=== PATIENT | male | born 1985 | race Two or more races ===

== ENCOUNTER 2020-08-06 10:38 | Inpatient (IN) | payer MEDICAID ==
[~2020-08-06] VITALS: Ht 180.3 cm; Wt 115.7 kg
--- NOTE | 2020-08-06 10:40 | Emergency Room Report ---
History of Present Illness General Chief Complaint: Dyspnea/Respdistress Source: Patient, EMS Present Illness HPI 34-year-old male with no prior medical history presents to the emergency department with chief complaint of shortness of breath X 5 days, however worse over the past 2. According to EMS, there patient was hypoxic 89% upon arrival with severe increased work of breathing so he was placed on nasal cannula at 6 L. Patient recently returned from a trip to [place] last month. 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 Denies any recent antibiotic use or hospitalization. Also endorses myalgias, fatigue, chills, productive cough, shortness of breath. Denies chest pain, hemoptysis, history of blood clots, leg swelling, rash, photophobia, headache, focal weakness, abdominal pain, melena, hematochezia, dysuria or any other symptoms The patient's symptoms were gradual onset, severity was moderate, duration since 5 days. Quality: Generally weak Past medical history: Denies Past surgical history: Denies Smoking: Previous 2 pack/day smoker, quit 1.5 years ago Alcohol use: Previous heavy drinker. Quit 3 months ago (2 packs/day) Drug use: Denies Review of systems: CONST: ++ fevers ++ chills, No night sweats PULMONARY: ++ productive cough, ++ shortness of breath CARDIAC: No chest pain, ++ palpitations GI: No vomiting, No diarrhea , No melena_or_BRBPR : No dysuria, No hematuria, No discharge NEURO: No new_focal_weakness_or_numbness, No confusion, No vision changes 14 point Review of Systems is otherwise negative except per HPI Physical Exam: GENERAL: Awake_alert_ nontoxic, no acute distress Spo2 89% on RA -normal. Diaphoretic. EYES: Extraocular muscles are intact. Conjunctivae clear. Lids without swelling ENT: External nose and ear normal_in_appearance. Oropharynx clear. Head_atraumatic, dry_oral_mucosa NECK: No JVD. No meningismus. No thyromegaly. Supple. Trachea midline RESP: Increased respiratory effort. Symmetric rise. No stridor. Left lower lobe crackles. Subcostal retractions. Speaks in short clipped sentences. CARDIAC: Tachycardic rate and regular rhytm. No_significant pedal edema. ABDOMEN: Soft. Nondistended. Nontender_No_rebound_or_guarding. MSK: Normal muscle tone, without rigidity. Extremities without asymmetric deformity or swelling. SKIN: Warm and dry. No visible cyanosis or pallor. No petechiae NEUROLOGIC: Alert, oriented x3. Motor_and_sensation_grossly_intact. No truncal ataxia. Gait_normal Psych: Normal mood and affect, normal judgment and insight - COORDINATION OF CARE Case was discussed with: Patient , Patient's Physician Any labs and imaging that were ordered were interpreted as part of the medical decision making: Medical Decision Making/Plan: DDx: includes COVID-19 / coronavirus infection, URI, bronchitis, viral syndrome, postnasal drip, versus pneumonia, among others. Differential diagnosis includes sepsis / severe sepsis, UTI, pneumonia , viral syndrome, gastroenteritis, emergent abdominal infection, among others. Vitals show tachycardia, hypoxia. The patient arrived hypoxic in room air. He spiked a fever here as well. He was placed on nasal cannula 6L with decreased work of breathing and correction of hypoxia. He is noted to have subcostal retractions and speaks in short sentences. He has left lower lobe crackles. Chest x-ray shows multifocal pneumonia, suspicious for COVID-19 Sepsis bundle initiated on arrival. Blood cultures, lactate drawn. Covid swab collected. Lactate was not elevated , patient was NOT given 30 cc/kg IV fluids by bolus due to patient refusal due to concern for COVID. Empiric antibiotics were started. Patient received Decadron and azithromycin as well. Patient will be admitted to the hospital for further care and evaluation. I spoke with Dr. Mar (covering [facility]), and reviewed the patients presentation, workup, results, and treatment. They will admit the patient for further care and evaluation, and assume care of the patient at this time. - CRITICAL CARE STATEMENT - Critical care performed 45minutes) Time is exclusive of separately billable procedures. Time includes: direct patient care, patient reassessment, coordination of patient care, review of patient's medical records, medical consultation, family consultation regarding treatment decisions and documentation of patient care. 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 Rhythm: Sinus tachycardia Rate: 113 bpm QTc: 452 Morphology: No_significant_ST_elevations_or_depressions, No STEMI Impression: Sinus tachycardia, Q waves anterior leads. Normal axis Rhythm Strip Diag. Results Rhythm Strip Time: 10:58 EP Interpretation: yes Rate: 110 Rhythm: no PVC's, no ectopy Chest X-Ray Diagnostic Results Chest X-Ray Diagnostic Results : PA Scribe Text Chest X-Ray: Views: [ 1 ] view(s) Indication: Cough Findings: GGO multifocal pna , no PTX , no midline shift Impression: GGO multifocal pna The X-ray(s) were independently viewed and interpreted contemporaneously Electronically signed by Teagan eric DO Reevaluation Time: 11:11 Last Vital Signs Date Time Temp Pulse Resp B/P (MAP) Pulse Ox O2 Delivery O2 Flow Rate FiO2 08/06/20 10:34 97.5 119 24 148/99 (115) 99 Simple Mask 6.0 Status: improved Disposition: ADMITTED INPATIENT Admit Decision Time: 10:58 Condition: Stable Scripts No Active Prescriptions or Reported [employer] Teagan Dumas D.O. Aug 06, 2020 10:40
[2020-08-06] MEDS ORDERED: Acetaminophen 500mg (ES) tab ORAL ONE (10:45)
[2020-08-06] MEDS ORDERED: Azithromycin 500 MG in NS 275 ML IVPB ONE (10:45)
[2020-08-06] MEDS ORDERED: cefTRIAXone 1 GM in NS 55 ML IV ONE (10:45)
[2020-08-06 10:50] VITALS: BP 148/99
[2020-08-06 11:21] LABS: BASOPHILS % (AUTO) 0.6 % (0.0-2.0); EOSINOPHILS % (AUTO) 0.2 % (0.0-3.0); HEMATOCRIT 48.8 % (42.0-52.0); HEMOGLOBIN 17.1 G/DL (14.2-18.0); LYMPHOCYTES % (AUTO) 26.3 % (20.0-45.0); MEAN CORPUSCULAR VOLUME 86 FL (80-99); NEUTROPHILS % (AUTO) 66.9 % (45.0-75.0); PLATELET COUNT 208 K/UL (150-450); RED BLOOD COUNT 5.64 M/UL (4.70-6.10); RED CELL DISTRIBUTION WIDTH 12.3 % (11.6-14.8); WHITE BLOOD COUNT 5.1 K/UL (4.8-10.8)
[2020-08-06 11:25] LABS: INR 1.1 (0.9-1.1)
[2020-08-06 11:35] LABS: ANION GAP 12 mmol/L (5-15); BLOOD UREA NITROGEN 20 mg/dL (7-18); CALCIUM 8.3 MG/DL (8.5-10.1); CARBON DIOXIDE 25 MMOL/L (21-32); CHLORIDE 99 MMOL/L (98-107); CREATININE 0.8 MG/DL (0.55-1.30); POTASSIUM 3.7 MMOL/L (3.5-5.1); SODIUM 136 MMOL/L (136-145)
[2020-08-06 11:51] LABS: ALANINE AMINOTRANSFERASE 50 U/L (12-78); ALBUMIN 3.6 G/DL (3.4-5.0); ALBUMIN/GLOBULIN RATIO 0.8 (1.0-2.7); ALKALINE PHOSPHATASE 64 U/L (46-116); ASPARTATE AMINO TRANSFERASE 35 U/L (15-37); BILIRUBIN,TOTAL 1.2 MG/DL (0.2-1.0); CKMB < 0.5 NG/ML (0.0-3.6); CREATINE KINASE 216 U/L (26-308); FERRITIN 1174 NG/ML (8-388); LACTATE DEHYDROGENASE 515 U/L (81-234); PHOSPHORUS 3.8 MG/DL (2.5-4.9)
[2020-08-06 11:53] LABS: BILIRUBIN,DIRECT 0.4 MG/DL (0.0-0.3)
[2020-08-06] MEDS: Albuterol ud Inhalation HHN PRN ×2 (12:00→12:07)
[2020-08-06 14:20] VITALS: BP 148/99
--- NOTE | 2020-08-06 14:57 | Diagnostic Imaging Report ---
Indication: Cough Technique: One view of the chest Comparison: none Findings: Body habitus somewhat limits evaluation. Suboptimal inspiration results In crowding of bronchovascular markings. There are bilateral streaky and patchy infiltrates in a peribronchovascular distribution. The heart size is upper limits normal. Impression: Bilateral infiltrates, likely multifocal pneumonia, quite possibly viral
--- NOTE | 2020-08-06 15:45 | History and Physical ---
History of Present Illness General Date patient seen: Aug 06, 2020 Reason for Hospitalization: Dyspnea/Respdistress Present Illness HPI Kevin Morrison is a 34 yo previously healthy male who presents with 8 days of progressive SOB, cough, fevers, chills, decreased appetite. He is COVID-19 positive. He denies known sick contacts in his immediate family or outside the home. He recently traveled to [place] early June but was feeling well until last week. Also reports altered sensation of taste but denies anosmia, diarrhea, calf pain, blood clots. PMH: denies PSH: denies FH: denies SH: former smoker for over 10 years, quit 1.5 years ago. Denies current alcohol or recreational drug use NKDA Allergies: Coded Allergies: No Known Allergies (Unverified , 08/06/20) COVID-19 Screening Contact w/high risk pt: No Recent Travel to affected area: Yes Experienced COVID-19 symptoms?: Yes Coronavirus symptoms experienc: Fever (T>100.4F or >38C), Shortness of Breath Medication History No Active Prescriptions or Reported Meds Patient History History Provided By: Patient Healthcare decision maker Resuscitation status Advanced Directive on File Review of Systems Constitutional: Reports: chills, fever Eye: Denies: double vision, nose congestion ENT: Denies: ear discharge, throat pain Respiratory: Reports: cough, shortness of breath Cardiovascular: Reports: chest pain Gastrointestinal: Denies: abdominal pain, diarrhea, nausea, vomiting Genitourinary: Denies: dysuria, hematuria Musculoskeletal: Denies: joint pain, muscle pain Skin: Denies: rash, dryness Psychiatric: Denies: anxiety, hallucinations Neurological: Denies: headache, numbness Endocrine: Denies: flushing, intolerance to temperature Hematologic/Lymphatic: Denies: anemia, blood clots Physical Exam General Appearance: WD/WN, alert HEENT: normocephalic, atraumatic, mucous membranes moist, supple Neck: normal alignment, supple, normal inspection Respiratory/Chest: chest wall non-tender, respiratory distress - mild, crackles/rales Cardiovascular/Chest: normal peripheral pulses, normal rate, regular rhythm, no gallop/murmur Abdomen: non tender, soft, no organomegaly Extremities: normal range of motion, non-tender, no calf tenderness, no edema Skin Exam: normal pigmentation, warm/dry 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, alert, oriented x 3, responsive, normal mood/affect Musculoskeletal: normal muscle bulk, no effusion Last 24 Hour Vital Signs Date Time Temp Pulse Resp B/P (MAP) Pulse Ox O2 Delivery O2 Flow Rate FiO2 08/06/20 12:10 102 33 98 Nasal Cannula 3.0 32 102 26 98 08/06/20 11:57 102 26 98 Nasal Cannula 3.0 32 104 43 99 08/06/20 11:34 100.0 08/06/20 10:50 97.5 24 148/99 99 Simple Mask 6.0 08/06/20 10:50 119 24 Simple Mask 6.0 08/06/20 10:34 97.5 119 24 148/99 (115) 99 Simple Mask 6.0 Laboratory Tests Test 08/06/20 11:00 08/06/20 11:25 White Blood Count 5.1 K/UL (4.8-10.8) Red Blood Count 5.64 M/UL (4.70-6.10) Hemoglobin 17.1 G/DL (14.2-18.0) Hematocrit 48.8 % (42.0-52.0) Mean Corpuscular Volume 86 FL (80-99) Mean Corpuscular Hemoglobin 30.4 PG (27.0-31.0) Mean Corpuscular Hemoglobin Concent 35.2 G/DL (32.0-36.0) Red Cell Distribution Width 12.3 % (11.6-14.8) Platelet Count 208 K/UL (150-450) Mean Platelet Volume 7.5 FL (6.5-10.1) Neutrophils (%) (Auto) 66.9 % (45.0-75.0) Lymphocytes (%) (Auto) 26.3 % (20.0-45.0) Monocytes (%) (Auto) 6.0 % (1.0-10.0) Eosinophils (%) (Auto) 0.2 % (0.0-3.0) Basophils (%) (Auto) 0.6 % (0.0-2.0) Prothrombin Time 11.9 SEC (9.30-11.50) H Prothromb Time International Ratio 1.1 (0.9-1.1) Activated Partial Thromboplast Time 31 SEC (23-33) Sodium Level 136 MMOL/L (136-145) Potassium Level 3.7 MMOL/L (3.5-5.1) Chloride Level 99 MMOL/L (98-107) Carbon Dioxide Level 25 MMOL/L (21-32) Anion Gap 12 mmol/L (5-15) Blood Urea Nitrogen 20 mg/dL (7-18) H Creatinine 0.8 MG/DL (0.55-1.30) Estimat Glomerular Filtration Rate > 60 mL/min (>60) Glucose Level 124 MG/DL (74-106) H Lactic Acid Level 1.40 mmol/L (0.4-2.0) Calcium Level 8.3 MG/DL (8.5-10.1) L Phosphorus Level 3.8 MG/DL (2.5-4.9) Magnesium Level 2.1 MG/DL (1.8-2.4) Ferritin 1174 NG/ML (8-388) H Total Bilirubin 1.2 MG/DL (0.2-1.0) H Direct Bilirubin 0.4 MG/DL (0.0-0.3) H Aspartate Amino Transf (AST/SGOT) 35 U/L (15-37) Alanine Aminotransferase (ALT/SGPT) 50 U/L (12-78) Alkaline Phosphatase 64 U/L (46-116) Lactate Dehydrogenase 515 U/L (81-234) H Total Creatine Kinase 216 U/L (26-308) Creatine Kinase MB < 0.5 NG/ML (0.0-3.6) Creatine Kinase MB Relative Index 0.2 Troponin I 0.008 ng/mL (0.000-0.056) C-Reactive Protein, Quantitative 5.2 mg/dL (0.00-0.90) H Pro-B-Type Natriuretic Peptide < 5 pg/mL (0-125) Total Protein 8.3 G/DL (6.4-8.2) H Albumin 3.6 G/DL (3.4-5.0) Globulin 4.7 g/dL Albumin/Globulin Ratio 0.8 (1.0-2.7) L Lipase 509 U/L (73-393) H Arterial Blood pH 7.419 (7.350-7.450) Arterial Blood Partial Pressure CO2 33.3 mmHg (35.0-45.0) L Arterial Blood Partial Pressure O2 104.7 mmHg (75.0-100.0) H Arterial Blood HCO3 21.1 mmol/L (22.0-26.0) L Arterial Blood Oxygen Saturation 97.3 % (95-100) Arterial Blood Base Excess -2.4 (-2-2) L Andre Test Positive Microbiology Date/Time Source Procedure Growth Status 08/06/20 11:00 Nasopharynx SARS-CoV-2 RdRp Gene Assay - Final Complete Height (Feet): 5 Height (Inches): 11.00 Weight (Pounds): 255 Medications Current Medications Medications (Trade) Dose Ordered Sig/Porter Route PRN Reason Start Time Stop Time Status Last Admin Dose Admin Albuterol Sulfate (Proventil) 2.5 mg Q15MIN PRN HHN Shortness of Breath 08/06/20 10:45 08/06/20 12:00 Objective Narrative CXR 08/06/2020 Findings: Body habitus somewhat limits evaluation. Suboptimal inspiration results In crowding of bronchovascular markings. There are bilateral streaky and patchy infiltrates in a peribronchovascular distribution. The heart size is upper limits normal. Impression: Bilateral infiltrates, likely multifocal pneumonia, quite possibly viral Assessment/Plan Assessment/Plan: #COVID-19 Pneumonia #Acute hypoxemic respiratory failure - currently on oxygen via NC - elevated inflammatory markers, ferritin - dexamethasone, possibly remdesivir, per ID recs - antibiotics per ID recs - Consult pulmonology Dr. Salamanca - Consult ID Dr. Gann - Advance care planning note documented Fluids: IVF Diet: regular DVT ppx: heparin Code: FULL I spent 71 minutes on this patient's case, and 38 minutes were dedicated to counseling and/or care coordination. Discussed with ID and pulmonology consultants. Time of note may not reflect time of encounter Obinna Mar M.D. Aug 06, 2020 15:45
--- NOTE | 2020-08-06 16:13 | General Progress Note ---
Advance Care Planning Advance Care Planning Advance Care Planning [facility] An independent Hospitalist group, where every patient is our [facility] Internal Medicine Hospitalist Advanced Care Planning Note Please contact us at Date of Discussion: A [id number] discussion with the patient regarding the patient's advanced care planning took place during this hospitalization on the above date. The discussion included the explanation and discussion of advance directives and associated forms/documents, as well as the patient's current code status. We also discussed at length the patient's medical conditions (both acute and chroni c), general prognosis, treatment options, and goals of care. The following summarizes the discussion: Advance Care Planning/Goals of Care: - Will attempt to fill out an AD and/or POLST with the patient prior to discharge, if not already completed - Continue current evaluation and management of any acute and chronic medical issues - Will continue to support the patient/family - Will continue to discuss both short- and long-term goals of care DPOA-HC/Surrogate Decision Maker: Patient's is surrogate decision maker Code Status: Full Code Advanced Care Planning Forms/Documents Completed: Deferred until later encounter/visit A total of 17 minutes was spent on this discussion, including counseling, answering questions, and completing, if any, pertinent advanced care planning forms/documents. Time of note may not reflect time of encounter. Obinna Mar M.D. Aug 06, 2020 16:13
[2020-08-06 17:50] VITALS: BP 102/61
[2020-08-06] MEDS ORDERED: guaiFENesin 100mg/5ml Liq ud ORAL PRN (18:30)
[2020-08-06 20:00] VITALS: BP 115/73
[2020-08-06] MEDS: Enoxaparin 120 mg inj SUBQ SCH (20:22)
[2020-08-06] MEDS ORDERED: Heparin 5000 units/ml inj SUBQ SCH (21:00)
--- NOTE | 2020-08-06 21:00 | Consultation ---
DATE OF CONSULTATION: 08/06/2020 PULMONARY CONSULTATION CONSULTING PHYSICIAN: Rei aSlamanca MD. HISTORY OF PRESENT ILLNESS: This is a 34-year-old male with an unremarkable past history. He presented to the hospital with shortness of breath, lasting for the last five days. This has progressively gotten worse for the last two days. He denies alcohol or tobacco usage. He denies any recent COVID sick contacts. The patient was hypoxic in the ER and was also tachypneic. He was placed on nasal oxygen and currently he is saturating well on 6 L of oxygen. The patient does report a recent trip to another state in the last one month. The patient reports myalgias, fatigue, cough, shortness of breath. He denies dysgeusia or anosmia. PAST MEDICAL HISTORY: None. PAST SURGICAL HISTORY: None. ALLERGIES: None. SOCIAL HISTORY: He has been a smoker, but quit two years ago. He has also been a heavy alcohol user, but quit several months ago. REVIEW OF SYSTEMS: Admits to fevers, chills and sweats, cough, palpitations. Denies any headaches, hematemesis, melena, hematochezia, night sweats or weight loss. PHYSICAL EXAMINATION: GENERAL: Reveals a 34-year-old male. HEENT: Unremarkable. LUNGS: Clear breath sounds bilaterally. HEART: Normal heart sounds. ABDOMEN: Soft. EXTREMITIES: There is no edema. NEUROLOGIC: Nonfocal. VITAL SIGNS: Show blood pressure of 102/60, heart rate 85, respirations 20, O2 saturation 98% on 4 L of oxygen. LABORATORY DATA: Lab testing shows normal CBC and chemistries with an exception of glucose 124, ferritin 174, bilirubin 1.2, LDH 515, CRP 5.2. Troponin negative. Lipase 509. ABG is 7.41, pCO2 33, pO2 104. COVID testing is notable for rapid gene assay positivity. X-ray chest shows bilateral infiltrates suspicious for pneumonic process. IMPRESSION: 1. COVID-19 pneumonia. 2. Pancreatitis. 3. Hypoxemia. 4. Hyperglycemia. 5. Elevated inflammatory markers. DISCUSSION: Admit to the hospital. The patient will need oxygen. Agree with DVT prophylaxis. He is a candidate for remdesivir as well as Decadron. I will initiate Decadron, he has already received a single dose today in the ER. Agree with broad-spectrum antibiotics. Recommend ID consultation, IV fluids to be given. We will follow carefully. Rei Salamanca M.D. DR: SOLEDAD JOB#: [id number] CC: CANDELARIO
[2020-08-07] VITALS: BP 108/54
[2020-08-07 04:00] VITALS: BP 112/55
[2020-08-07 07:07] LABS: BASOPHILS % (AUTO) 1.3 % (0.0-2.0); EOSINOPHILS % (AUTO) 0.1 % (0.0-3.0); HEMATOCRIT 42.8 % (42.0-52.0); HEMOGLOBIN 15.1 G/DL (14.2-18.0); MEAN CORPUSCULAR VOLUME 88 FL (80-99); MONOCYTES % (AUTO) 10.4 % (1.0-10.0); NEUTROPHILS % (AUTO) 61.2 % (45.0-75.0); PLATELET COUNT 236 K/UL (150-450); RED BLOOD COUNT 4.88 M/UL (4.70-6.10); RED CELL DISTRIBUTION WIDTH 12.1 % (11.6-14.8); WHITE BLOOD COUNT 4.6 K/UL (4.8-10.8)
[2020-08-07 07:43] LABS: ANION GAP 9 mmol/L (5-15); BLOOD UREA NITROGEN 18 mg/dL (7-18); CALCIUM 8.3 MG/DL (8.5-10.1); CARBON DIOXIDE 27 MMOL/L (21-32); CHLORIDE 101 MMOL/L (98-107); CREATININE 0.7 MG/DL (0.55-1.30); POTASSIUM 4.1 MMOL/L (3.5-5.1); SODIUM 137 MMOL/L (136-145)
[2020-08-07 07:49] LABS: INR 1.1 (0.9-1.1)
[2020-08-07 08:00] VITALS: BP 115/62
[2020-08-07] MEDS: dexAMETHasone 10mg/ml Inj IV SCH (08:36)
[2020-08-07] MEDS: Enoxaparin 120 mg inj SUBQ SCH ×2 (08:37→21:00)
--- NOTE | 2020-08-07 11:33 | Pulmonology Progress Note ---
Subjective ROS Limited/Unobtainable: No Interval Events: NC -> Venturi mask -> now on NRB Constitutional: Reports: no symptoms HEENT: Repors: no symptoms Respiratory: Reports: dry cough, shortness of breath Cardiovascular: Reports: no symptoms Gastrointestinal/Abdominal: Reports: no symptoms Allergies: Coded Allergies: No Known Allergies (Unverified , 08/06/20) Objective Last 24 Hour Vital Signs Date Time Temp Pulse Resp B/P (MAP) Pulse Ox O2 Delivery O2 Flow Rate FiO2 08/07/20 08:00 75 08/07/20 08:00 97.6 71 19 115/62 (79) 98 08/07/20 04:00 68 08/07/20 04:00 97.2 77 24 112/55 (74) 96 08/07/20 00:00 96.3 74 22 108/54 (72) 90 08/07/20 00:00 96 Non-Rebreather 15.0 100 08/06/20 21:00 Nasal Cannula 5.0 08/06/20 20:00 97.9 86 22 115/73 (87) 91 08/06/20 20:00 90 08/06/20 17:50 98.7 85 21 102/61 (75) 90 08/06/20 17:25 Nasal Cannula 5.0 08/06/20 17:15 99.8 98 24 148/99 98 Nasal Cannula 4.0 32 08/06/20 14:20 99.8 98 24 148/99 98 Nasal Cannula 4.0 32 08/06/20 12:10 102 33 98 Nasal Cannula 3.0 32 102 26 98 08/06/20 11:57 102 26 98 Nasal Cannula 3.0 32 104 43 99 08/06/20 11:34 100.0 Intake and Output 08/06/20 08/07/20 19:00 07:00 Intake Total 2058.75 ml 825 ml Output Total 550 ml Balance 2058.75 ml 275 ml Intake IV Total 2058.75 ml 825 ml Output Urine Total 550 ml # Voids 1 Objective 08/07 now on NRB 15L saturating at 93-94% General Appearance: WD/WN, no acute distress HEENT: normocephalic, atraumatic Respiratory: chest wall non-tender, crackles/rales Cardiovascular: normal rate, regular rhythm Abdomen: soft, non tender Microbiology Date/Time Source Procedure Growth Status 08/06/20 11:00 Nasopharynx SARS-CoV-2 RdRp Gene Assay - Final Complete Laboratory Tests 08/07/20 02:34: Arterial Blood pH 7.428, Arterial Blood Partial Pressure CO2 39.6, Arterial Blood Partial Pressure O2 94.8, Arterial Blood HCO3 25.6, Arterial Blood Oxygen Saturation 96.9, Arterial Blood Base Excess 1.3, Andre Test Positive 08/07/20 05:40: White Blood Count 4.6L, Red Blood Count 4.88, Hemoglobin 15.1, Hematocrit 42.8, Mean Corpuscular Volume 88, Mean Corpuscular Hemoglobin 30.9, Mean Corpuscular Hemoglobin Concent 35.2, Red Cell Distribution Width 12.1, Platelet Count 236, Mean Platelet Volume 7.8, Neutrophils (%) (Auto) 61.2, Lymphocytes (%) (Auto) 27.0, Monocytes (%) (Auto) 10.4H, Eosinophils (%) (Auto) 0.1, Basophils (%) (Auto) 1.3, Prothrombin Time 11.7H, Prothromb Time International Ratio 1.1, Activated Partial Thromboplast Time 30, Fibrinogen 539H, D-Dimer 0.68H, Sodium Level 137, Potassium Level 4.1, Chloride Level 101, Carbon Dioxide Level 27, Anion Gap 9, Blood Urea Nitrogen 18, Creatinine 0.7, Estimat Glomerular Filtration Rate > 60, Glucose Level 119H, Calcium Level 8.3L Current Medications Medications (Trade) Dose Ordered Sig/Porter Route PRN Reason Start Time Stop Time Status Last Admin Dose Admin Acetaminophen (Tylenol) 325 mg Q4H PRN ORAL FEVER 08/06/20 18:15 09/05/20 18:14 Albuterol Sulfate (Proventil) 2.5 mg Q15MIN PRN HHN Shortness of Breath 08/06/20 10:45 08/06/20 12:00 Dexamethasone Sodium Phosphate (Decadron 10mg/ ml Inj) 6 mg DAILY IV 08/07/20 09:00 08/16/20 09:01 08/07/20 08:36 Dextrose (Dextrose 50%) 25 ml Q30M PRN IV Hypoglycemia 08/06/20 16:45 11/04/20 16:44 Dextrose (Dextrose 50%) 50 ml Q30M PRN IV Hypoglycemia 08/06/20 16:45 11/04/20 16:44 Enoxaparin Sodium (Lovenox) 120 mg EVERY 12 HOURS SUBQ 08/06/20 21:00 11/04/20 20:59 08/07/20 08:37 Guaifenesin (Robitussin) 200 mg Q4H PRN ORAL For Cough 08/06/20 18:30 11/04/20 18:29 Pantoprazole (Protonix) 40 mg DAILY ORAL 08/07/20 09:00 09/06/20 08:59 08/07/20 08:36 Sodium Chloride 1,000 ml @ 75 mls/hr [id number] IV 08/06/20 17:45 09/05/20 17:44 08/07/20 06:17 Assessment/Plan Assessment/Plan 1. COVID-19 pneumonia. - now on 15L NRB saturating at 93-94% - on remdesivir and decadron - on broad-spectrum Abx 2. Pancreatitis. - trend lipase 3. Hypoxemia. - Cont supplemental oxygen - keep saO2 >92% 4. Hyperglycemia., likely secondary to steroids - monitor 5. Elevated inflammatory markers. - DVT ppx - on lovenox We will follow carefully. The care for this patient was discussed with my supervising physician Time spent for this case was approximately 31 minutes Austyn Calixto Aug 07, 2020 11:33
[2020-08-07 12:00] VITALS: BP 125/85
--- NOTE | 2020-08-07 13:19 | Cardiac Electrophysiology PN ---
Subjective Subjective [id number] Objective Last 24 Hour Vital Signs Date Time Temp Pulse Resp B/P (MAP) Pulse Ox O2 Delivery O2 Flow Rate FiO2 08/07/20 13:08 96 Non-Rebreather 15.0 100 08/07/20 08:00 75 08/07/20 08:00 97.6 71 19 115/62 (79) 98 08/07/20 04:00 68 08/07/20 04:00 97.2 77 24 112/55 (74) 96 08/07/20 00:00 96.3 74 22 108/54 (72) 90 08/07/20 00:00 96 Non-Rebreather 15.0 100 08/06/20 21:00 Nasal Cannula 5.0 08/06/20 20:00 97.9 86 22 115/73 (87) 91 08/06/20 20:00 90 08/06/20 17:50 98.7 85 21 102/61 (75) 90 08/06/20 17:25 Nasal Cannula 5.0 08/06/20 17:15 99.8 98 24 148/99 98 Nasal Cannula 4.0 32 08/06/20 14:20 99.8 98 24 148/99 98 Nasal Cannula 4.0 32 Intake and Output 08/06/20 08/07/20 19:00 07:00 Intake Total 2058.75 ml 825 ml Output Total 550 ml Balance 2058.75 ml 275 ml Intake IV Total 2058.75 ml 825 ml Output Urine Total 550 ml # Voids 1 Laboratory Tests Test 08/07/20 02:34 08/07/20 05:40 Arterial Blood pH 7.428 (7.350-7.450) Arterial Blood Partial Pressure CO2 39.6 mmHg (35.0-45.0) Arterial Blood Partial Pressure O2 94.8 mmHg (75.0-100.0) Arterial Blood HCO3 25.6 mmol/L (22.0-26.0) Arterial Blood Oxygen Saturation 96.9 % (95-100) Arterial Blood Base Excess 1.3 (-2-2) Andre Test Positive White Blood Count 4.6 K/UL (4.8-10.8) L Red Blood Count 4.88 M/UL (4.70-6.10) Hemoglobin 15.1 G/DL (14.2-18.0) Hematocrit 42.8 % (42.0-52.0) Mean Corpuscular Volume 88 FL (80-99) Mean Corpuscular Hemoglobin 30.9 PG (27.0-31.0) Mean Corpuscular Hemoglobin Concent 35.2 G/DL (32.0-36.0) Red Cell Distribution Width 12.1 % (11.6-14.8) Platelet Count 236 K/UL (150-450) Mean Platelet Volume 7.8 FL (6.5-10.1) Neutrophils (%) (Auto) 61.2 % (45.0-75.0) Lymphocytes (%) (Auto) 27.0 % (20.0-45.0) Monocytes (%) (Auto) 10.4 % (1.0-10.0) H Eosinophils (%) (Auto) 0.1 % (0.0-3.0) Basophils (%) (Auto) 1.3 % (0.0-2.0) Prothrombin Time 11.7 SEC (9.30-11.50) H Prothromb Time International Ratio 1.1 (0.9-1.1) Activated Partial Thromboplast Time 30 SEC (23-33) Fibrinogen 539 mg/dL (200-400) H D-Dimer 0.68 mg/L FEU (0.00-0.49) H Sodium Level 137 MMOL/L (136-145) Potassium Level 4.1 MMOL/L (3.5-5.1) Chloride Level 101 MMOL/L (98-107) Carbon Dioxide Level 27 MMOL/L (21-32) Anion Gap 9 mmol/L (5-15) Blood Urea Nitrogen 18 mg/dL (7-18) Creatinine 0.7 MG/DL (0.55-1.30) Estimat Glomerular Filtration Rate > 60 mL/min (>60) Glucose Level 119 MG/DL (74-106) H Calcium Level 8.3 MG/DL (8.5-10.1) L Microbiology Date/Time Source Procedure Growth Status 08/06/20 11:00 Nasopharynx SARS-CoV-2 RdRp Gene Assay - Final Complete Jacques Hardwick MD Aug 07, 2020 13:19
[2020-08-07 16:00] VITALS: BP 124/58
--- NOTE | 2020-08-07 16:01 | Consultation ---
DATE OF CONSULTATION: 08/07/2020 CARDIOLOGY CONSULTATION CONSULTING PHYSICIAN: Jacques Hardwick MD REFERRING PHYSICIAN: Maria G Slade MD REASON FOR CONSULTATION: Bradycardia with 1.5 second pause in a COVID patient. HISTORY OF PRESENT ILLNESS: Patient is a 34-year-old, previously healthy gentleman who presented to the emergency room with 8 days of progressive shortness of breath and cough and fever and chills and decreased appetite. He turned out to be COVID positive. Patient denies any contact with an immediate family. He recently traveled to [place] in June; however feeling well until last week. Patient reports altered sensation of taste, but denies anosmia or diarrhea or calf pain or blood clots. Patient had 1.5 second pause on telemetry and a Cardiology consultation was obtained for further evaluation. At the time of my evaluation, patient is on 15 L non-rebreather face mask and is alert . REVIEW OF SYSTEMS: Negative other than what was mentioned in the history of present illness. PAST MEDICAL HISTORY: As mentioned above. FAMILY HISTORY: Noncontributory. SOCIAL HISTORY: He is a former smoker about 10 years ago, quit a year half ago. Denies drinking alcohol or using recreational drugs. PHYSICAL EXAMINATION: VITAL SIGNS: Show blood pressure of 115/62, pulse 71, respirations 18, temperature 97.6. HEAD AND NECK: Showed no JVD. LUNGS: Coarse rhonchi. CARDIOVASCULAR: Shows regular S1 and S2 with no gallop. ABDOMEN: Soft. EXTREMITIES: No pitting edema. LABORATORY DATA: White count 4.7, hematocrit 15.1, hematocrit 42.8, platelet count 236,000. Sodium 137, potassium 4.1, BUN of 18, creatinine of 0.7. First troponin is negative. ASSESSMENT AND PLAN: 1. Pause of 1.5 second. Watch the patient on telemetry. We will check thyroid function tests and we will get an echocardiogram to evaluate for ejection fraction and wall motion abnormality. 2. COVID pneumonia with elevated inflammatory markers, on non-rebreather face mask 15 L. 3. Elevated ferritin of more than 1000, LDH of more than 500. 4. Pancreatitis. Lipase of more than 500. Thank you very much for allowing me to participate in the care of this patient. Please do not hesitate to contact me for any questions regarding my evaluation. Jacques Hardwick M.D. DR: SHIRLENE JOB#: [id number] CC:
--- NOTE | 2020-08-07 16:12 | General Progress Note ---
Subjective Date patient seen: Aug 07, 2020 ROS Limited/Unobtainable: No Allergies: Coded Allergies: No Known Allergies (Unverified , 08/06/20) Subjective No acute events overnight. Patient now on nonrebreather oxygen. Noted to have 1.5 sec sinus pause on telemetry. Reports improving chest pain, generally feeling stable. Constitutional: Denies: fever, chills Eye: Denies: double vision, nose congestion ENT: Denies: ear discharge, throat pain Respiratory: Reports: shortness of breath Cardiovascular: Reports: improving chest pain Gastrointestinal: Denies: abdominal pain, diarrhea, nausea, vomiting Genitourinary: Denies: dysuria, hematuria Musculoskeletal: Denies: joint pain, muscle pain Skin: Denies: rash, dryness Psychiatric: Denies: anxiety, hallucinations Neurological: Denies: headache, numbness Endocrine: Denies: flushing, intolerance to temperature Hematologic/Lymphatic: Denies: anemia, blood clots Objective Last 24 Hour Vital Signs Date Time Temp Pulse Resp B/P (MAP) Pulse Ox O2 Delivery O2 Flow Rate FiO2 08/07/20 13:08 96 Non-Rebreather 15.0 100 08/07/20 12:00 96.7 107 21 125/85 (98) 98 08/07/20 12:00 78 08/07/20 09:00 Non-Rebreather 15.0 08/07/20 08:00 75 08/07/20 08:00 97.6 71 19 115/62 (79) 98 08/07/20 04:00 68 08/07/20 04:00 97.2 77 24 112/55 (74) 96 08/07/20 00:00 96.3 74 22 108/54 (72) 90 08/07/20 00:00 96 Non-Rebreather 15.0 100 08/06/20 21:00 Nasal Cannula 5.0 08/06/20 20:00 97.9 86 22 115/73 (87) 91 08/06/20 20:00 90 08/06/20 17:50 98.7 85 21 102/61 (75) 90 08/06/20 17:25 Nasal Cannula 5.0 08/06/20 17:15 99.8 98 24 148/99 98 Nasal Cannula 4.0 32 Intake and Output 08/06/20 08/07/20 19:00 07:00 Intake Total 2058.75 ml 825 ml Output Total 550 ml Balance 2058.75 ml 275 ml Intake IV Total 2058.75 ml 825 ml Output Urine Total 550 ml # Voids 1 Laboratory Tests 08/07/20 02:34: Arterial Blood pH 7.428, Arterial Blood Partial Pressure CO2 39.6, Arterial Blood Partial Pressure O2 94.8, Arterial Blood HCO3 25.6, Arterial Blood Oxygen Saturation 96.9, Arterial Blood Base Excess 1.3, Andre Test Positive 08/07/20 05:40: White Blood Count 4.6L, Red Blood Count 4.88, Hemoglobin 15.1, Hematocrit 42.8, Mean Corpuscular Volume 88, Mean Corpuscular Hemoglobin 30.9, Mean Corpuscular Hemoglobin Concent 35.2, Red Cell Distribution Width 12.1, Platelet Count 236, Mean Platelet Volume 7.8, Neutrophils (%) (Auto) 61.2, Lymphocytes (%) (Auto) 27.0, Monocytes (%) (Auto) 10.4H, Eosinophils (%) (Auto) 0.1, Basophils (%) (Auto) 1.3, Prothrombin Time 11.7H, Prothromb Time International Ratio 1.1, Activated Partial Thromboplast Time 30, Fibrinogen 539H, D-Dimer 0.68H, Sodium Level 137, Potassium Level 4.1, Chloride Level 101, Carbon Dioxide Level 27, Anion Gap 9, Blood Urea Nitrogen 18, Creatinine 0.7, Estimat Glomerular Filtration Rate > 60, Glucose Level 119H, Calcium Level 8.3L Height (Feet): 5 Height (Inches): 11.00 Weight (Pounds): 255 Objective General Appearance: WD/WN, alert, on nonrebreather oxygen mask HEENT: normocephalic, atraumatic, mucous membranes moist, supple Neck: normal alignment, supple, normal inspection Respiratory/Chest: chest wall non-tender, respiratory distress - mild, crackles/rales Cardiovascular/Chest: normal peripheral pulses, normal rate, regular rhythm, no gallop/murmur Abdomen: non tender, soft, no organomegaly Extremities: normal range of motion, non-tender, no calf tenderness, no edema Skin Exam: normal pigmentation, warm/dry 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 Salamanca - Consult ID Dr. Gann - Advance care planning note documented #Sinus pause #Bradycardia Asymptomatic - Check TTE - Check TSH - Consult cardiology Dr. Hardwick Fluids: IVF Diet: regular DVT ppx: heparin Code: FULL I spent 37 minutes on this patient's case, and 23 minutes were dedicated to counseling and/or care coordination. Discussed with cardiology and pulmonology consultants. Time of note may not reflect time of encounter Obinna Mar M.D. Aug 07, 2020 16:12
--- NOTE | 2020-08-07 17:16 | Infectious Diseases Prog Note ---
Assessment/Plan Assessment/Plan Full consult dictated: A) 1) covid-19 with pna, hypoxia, ? cap, fevers 2) pmh noted 3) allergies - nkda P) 1) dexamethasone, remdesivir, azithromycin and ceftriaxone 2) check labs, chest x-ray 3) monitor for hypoxia 4) will f/u 5) thanks Subjective Allergies: Coded Allergies: No Known Allergies (Unverified , 08/06/20) Objective Last 24 Hour Vital Signs Date Time Temp Pulse Resp B/P (MAP) Pulse Ox O2 Delivery O2 Flow Rate FiO2 08/07/20 16:00 65 08/07/20 16:00 96.8 69 21 124/58 (80) 99 08/07/20 13:08 96 Non-Rebreather 15.0 100 08/07/20 12:00 96.7 107 21 125/85 (98) 98 08/07/20 12:00 78 08/07/20 09:00 Non-Rebreather 15.0 08/07/20 08:00 75 08/07/20 08:00 97.6 71 19 115/62 (79) 98 08/07/20 04:00 68 08/07/20 04:00 97.2 77 24 112/55 (74) 96 08/07/20 00:00 96.3 74 22 108/54 (72) 90 08/07/20 00:00 96 Non-Rebreather 15.0 100 08/06/20 21:00 Nasal Cannula 5.0 08/06/20 20:00 97.9 86 22 115/73 (87) 91 08/06/20 20:00 90 08/06/20 17:50 98.7 85 21 102/61 (75) 90 08/06/20 17:25 Nasal Cannula 5.0 08/06/20 17:15 99.8 98 24 148/99 98 Nasal Cannula 4.0 32 Height (Feet): 5 Height (Inches): 11.00 Weight (Pounds): 255 Microbiology Date/Time Source Procedure Growth Status 08/06/20 11:00 Nasopharynx SARS-CoV-2 RdRp Gene Assay - Final Complete Laboratory Tests Test 08/07/20 02:34 08/07/20 05:40 Arterial Blood pH 7.428 (7.350-7.450) Arterial Blood Partial Pressure CO2 39.6 mmHg (35.0-45.0) Arterial Blood Partial Pressure O2 94.8 mmHg (75.0-100.0) Arterial Blood HCO3 25.6 mmol/L (22.0-26.0) Arterial Blood Oxygen Saturation 96.9 % (95-100) Arterial Blood Base Excess 1.3 (-2-2) Andre Test Positive White Blood Count 4.6 K/UL (4.8-10.8) L Red Blood Count 4.88 M/UL (4.70-6.10) Hemoglobin 15.1 G/DL (14.2-18.0) Hematocrit 42.8 % (42.0-52.0) Mean Corpuscular Volume 88 FL (80-99) Mean Corpuscular Hemoglobin 30.9 PG (27.0-31.0) Mean Corpuscular Hemoglobin Concent 35.2 G/DL (32.0-36.0) Red Cell Distribution Width 12.1 % (11.6-14.8) Platelet Count 236 K/UL (150-450) Mean Platelet Volume 7.8 FL (6.5-10.1) Neutrophils (%) (Auto) 61.2 % (45.0-75.0) Lymphocytes (%) (Auto) 27.0 % (20.0-45.0) Monocytes (%) (Auto) 10.4 % (1.0-10.0) H Eosinophils (%) (Auto) 0.1 % (0.0-3.0) Basophils (%) (Auto) 1.3 % (0.0-2.0) Prothrombin Time 11.7 SEC (9.30-11.50) H Prothromb Time International Ratio 1.1 (0.9-1.1) Activated Partial Thromboplast Time 30 SEC (23-33) Fibrinogen 539 mg/dL (200-400) H D-Dimer 0.68 mg/L FEU (0.00-0.49) H Sodium Level 137 MMOL/L (136-145) Potassium Level 4.1 MMOL/L (3.5-5.1) Chloride Level 101 MMOL/L (98-107) Carbon Dioxide Level 27 MMOL/L (21-32) Anion Gap 9 mmol/L (5-15) Blood Urea Nitrogen 18 mg/dL (7-18) Creatinine 0.7 MG/DL (0.55-1.30) Estimat Glomerular Filtration Rate > 60 mL/min (>60) Glucose Level 119 MG/DL (74-106) H Calcium Level 8.3 MG/DL (8.5-10.1) L Current Medications Medications (Trade) Dose Ordered Sig/Porter Route PRN Reason Start Time Stop Time Status Last Admin Dose Admin Acetaminophen (Tylenol) 325 mg Q4H PRN ORAL FEVER 08/06/20 18:15 09/05/20 18:14 Albuterol Sulfate (Proventil) 2.5 mg Q15MIN PRN HHN Shortness of Breath 08/06/20 10:45 08/06/20 12:00 Dexamethasone Sodium Phosphate (Decadron 10mg/ ml Inj) 6 mg DAILY IV 08/07/20 09:00 08/16/20 09:01 08/07/20 08:36 Dextrose (Dextrose 50%) 25 ml Q30M PRN IV Hypoglycemia 08/06/20 16:45 11/04/20 16:44 Dextrose (Dextrose 50%) 50 ml Q30M PRN IV Hypoglycemia 08/06/20 16:45 11/04/20 16:44 Enoxaparin Sodium (Lovenox) 120 mg EVERY 12 HOURS SUBQ 08/06/20 21:00 11/04/20 20:59 08/07/20 08:37 Guaifenesin (Robitussin) 200 mg Q4H PRN ORAL For Cough 08/06/20 18:30 11/04/20 18:29 Pantoprazole (Protonix) 40 mg DAILY ORAL 08/07/20 09:00 09/06/20 08:59 08/07/20 08:36 Remdesivir 100 mg/ Sodium Chloride 250 ml @ 250 mls/hr Q24H IV 08/08/20 21:00 08/11/20 21:59 Remdesivir 200 mg/ Sodium Chloride 250 ml @ 125 mls/hr ONCE IV 08/07/20 21:00 08/07/20 22:59 Sodium Chloride 1,000 ml @ 75 mls/hr [id number] IV 08/06/20 17:45 09/05/20 17:44 08/07/20 06:17 Anam Arcos MD Aug 07, 2020 17:16
[2020-08-07] MEDS: cefTRIAXone 1 GM in D5W 55 ML IVPB SCH (17:35)
--- NOTE | 2020-08-07 18:45 | Consultation ---
DATE OF CONSULTATION: 08/07/2020 INFECTIOUS DISEASE CONSULTATION CONSULTING PHYSICIAN: Anam Arcos MD ATTENDING PHYSICIAN: Maria G Slade MD REFERRING PHYSICIAN: Obinna Mar MD REASON FOR CONSULTATION: COVID-19 infection and pneumonia, possible community-acquired pneumonia, fevers. CHIEF COMPLAINT: Patient's chief complaint coming to the hospital is respiratory insufficiency and pneumonia. HISTORY OF PRESENT ILLNESS: This is a very pleasant 34-year-old male who comes in to [facility] with hypoxia. Patient had COVID testing and was positive. Nasopharyngeal testing was positive. Patient's chest x-ray shows a multifocal pneumonia. Infectious Disease consultation is requested. I saw the patient and placed the patient on azithromycin and Rocephin for community-acquired pneumonia and remdesivir for COVID infection. He is already on Decadron. Case was communicated and discussed with primary care team. Patient is on non-rebreather and is in COVID isolation. REVIEW OF SYSTEMS: CONSTITUTIONAL: Main issue is the breathing issue, shortness of breath. He came in with fevers and chills. CARDIAC: No chest pain. GASTROINTESTINAL: No nausea, vomiting, or diarrhea. GENITOURINARY: No urinary symptoms. PULMONARY: Shortness of breath and cough. PAST MEDICAL HISTORY: Otherwise negative. SOCIAL HISTORY: Negative. FAMILY HISTORY: Noncontributory. MEDICATIONS: Upon reviewing the MAR, patient is on following medications. He is on does remdesivir, dexamethasone 6 mg daily, pantoprazole, enoxaparin, Rocephin, azithromycin, acetaminophen. PRN medications, Rocephin and azithromycin. PHYSICAL EXAMINATION: VITAL SIGNS: Temperature 96.8, pulse rate 69, respiratory rate 21, blood pressure 124/58, saturation 99% on non-rebreather. GENERAL: Alert, oriented, on non-rebreather. HEAD AND NECK: Normocephalic. No icterus or thrush. HEART: Regular. No gallop or murmur. ABDOMEN: Soft. Positive bowel sounds. Nontender. LUNGS: Bilateral rhonchi and rales. SKIN: No rash. MUSCULOSKELETAL: No effusions. Legs are without cellulitis. PERIPHERAL VASCULAR: No gangrene or cyanosis. LINE SITES: No central line. GENITOURINARY: No Martinez. NEUROLOGIC: Intact. Alert, oriented x3. LABORATORY DATA: Creatinine 0.7. White count 4.6, hemoglobin 15.1. COVID molecular testing is positive. Chest x-ray, bilateral infiltrates. ASSESSMENT AND PLAN: 1. Patient with COVID-19 infection with secondary pneumonia and hypoxia. Patient could have community-acquired pneumonia. Patient has fevers. His T-max when he came in was 100.0. At this time, we will continue dexamethasone and start remdesivir. Patient will need 7 to 10-day treatment course of dexamethasone, 5-day treatment course of remdesivir. With regards to possible community-acquired pneumonia, we will continue azithromycin and Rocephin. Check followup laboratories and chest x-ray as indicated. Monitor for hypoxia. Continue COVID isolation. 2. No other significant past medical history. 3. No known drug allergies. 4. Social history is negative. 5. Family history is noncontributory. 6. MAR is noted. 7. Case is discussed with RN. 8. Case is communicated with care primary care team. Anam Arcos M.D. DR: LESLY JOB#: [id number] CC:
[2020-08-07 20:00] VITALS: BP 114/66
[2020-08-07] MEDS ORDERED: Loading Dose:Remdesivir 200mg/NS 210ml IV SCH ×2 (21:00)
[2020-08-08] VITALS: BP 110/70
[2020-08-08 04:00] VITALS: BP 124/79
[2020-08-08 07:39] LABS: ALANINE AMINOTRANSFERASE 40 U/L (12-78); ALBUMIN 2.9 G/DL (3.4-5.0); ALBUMIN/GLOBULIN RATIO 0.7 (1.0-2.7); ALKALINE PHOSPHATASE 48 U/L (46-116); ANION GAP 6 mmol/L (5-15); ASPARTATE AMINO TRANSFERASE 29 U/L (15-37); BILIRUBIN,TOTAL 0.6 MG/DL (0.2-1.0); BLOOD UREA NITROGEN 16 mg/dL (7-18); CARBON DIOXIDE 29 MMOL/L (21-32); CHLORIDE 104 MMOL/L (98-107); CREATININE 0.7 MG/DL (0.55-1.30); POTASSIUM 3.8 MMOL/L (3.5-5.1); SODIUM 139 MMOL/L (136-145)
[2020-08-08 08:00] VITALS: BP 126/70
[2020-08-08 08:27] LABS: BASOPHILS % (AUTO) 0.7 % (0.0-2.0); EOSINOPHILS % (AUTO) 0.2 % (0.0-3.0); HEMATOCRIT 37.1 % (42.0-52.0); HEMOGLOBIN 13.6 G/DL (14.2-18.0); LYMPHOCYTES % (AUTO) 23.7 % (20.0-45.0); MEAN CORPUSCULAR VOLUME 87 FL (80-99); MONOCYTES % (AUTO) 5.9 % (1.0-10.0); NEUTROPHILS % (AUTO) 69.5 % (45.0-75.0); PLATELET COUNT 262 K/UL (150-450); RED BLOOD COUNT 4.29 M/UL (4.70-6.10); RED CELL DISTRIBUTION WIDTH 12.6 % (11.6-14.8); WHITE BLOOD COUNT 7.4 K/UL (4.8-10.8)
[2020-08-08] MEDS: Enoxaparin 120 mg inj SUBQ SCH ×2 (08:30→21:05)
[2020-08-08] MEDS: dexAMETHasone 10mg/ml Inj IV SCH (08:30)
[2020-08-08] MEDS: Azithromycin 250mg tab ORAL SCH (08:31)
--- NOTE | 2020-08-08 10:43 | Diagnostic Imaging Report ---
Indication: Reason For Exam: [id number] Technique: One view of the chest Comparison: 08/06/2020 Findings: Interim worsening of bilateral infiltrates, with more air space consolidation, particularly in the left mid and upper lung. Impression: Worsening bilateral infiltrates, over 2 days
--- NOTE | 2020-08-08 11:54 | Pulmonology Progress Note ---
Subjective ROS Limited/Unobtainable: No Interval Events: NC -> Venturi mask -> now on NRB Constitutional: Reports: no symptoms HEENT: Repors: no symptoms Respiratory: Reports: dry cough, shortness of breath Cardiovascular: Reports: no symptoms Gastrointestinal/Abdominal: Reports: no symptoms Allergies: Coded Allergies: No Known Allergies (Unverified , 08/06/20) Objective Last 24 Hour Vital Signs Date Time Temp Pulse Resp B/P (MAP) Pulse Ox O2 Delivery O2 Flow Rate FiO2 08/08/20 09:26 99.1 08/08/20 09:00 Non-Rebreather 15.0 08/08/20 08:00 100.6 70 19 126/70 (88) 99 08/08/20 08:00 61 08/08/20 04:00 98.0 45 18 124/79 (94) 99 08/08/20 04:00 63 08/08/20 00:00 97.8 62 18 110/70 (83) 98 08/08/20 00:00 64 08/07/20 21:00 Non-Rebreather 15.0 08/07/20 20:02 99 Non-Rebreather 15.0 100 08/07/20 20:00 97.9 64 17 114/66 (82) 99 08/07/20 16:00 65 08/07/20 16:00 96.8 69 21 124/58 (80) 99 08/07/20 13:08 96 Non-Rebreather 15.0 100 08/07/20 12:00 96.7 107 21 125/85 (98) 98 08/07/20 12:00 78 Intake and Output 08/07/20 08/08/20 19:00 07:00 Intake Total 1000 ml 360 ml Output Total 1200 ml Balance -200 ml 360 ml Intake Oral 120 ml 360 ml IV Total 880 ml Output Urine Total 1200 ml # Voids 3 1 # Bowel Movements 1 1 Objective 08/08 pt remains to be on NRB 15L 08/07 now on NRB 15L saturating at 93-94% General Appearance: WD/WN, no acute distress HEENT: normocephalic, atraumatic Respiratory: chest wall non-tender, crackles/rales Cardiovascular: normal rate, regular rhythm Abdomen: soft, non tender Microbiology Date/Time Source Procedure Growth Status 08/06/20 11:01 Blood Blood Culture - Preliminary NO GROWTH AFTER 24 HOURS Resulted 08/06/20 11:00 Nasopharynx SARS-CoV-2 RdRp Gene Assay - Final Complete 08/06/20 10:55 Blood Blood Culture - Preliminary NO GROWTH AFTER 24 HOURS Resulted Laboratory Tests 08/08/20 05:47: White Blood Count 7.4#, Red Blood Count 4.29L, Hemoglobin 13.6L, Hematocrit 37.1L, Mean Corpuscular Volume 87, Mean Corpuscular Hemoglobin 31.7H, Mean Corpuscular Hemoglobin Concent 36.6H, Red Cell Distribution Width 12.6, Platelet Count 262, Mean Platelet Volume 6.8, Neutrophils (%) (Auto) 69.5, Lymphocytes (%) (Auto) 23.7, Monocytes (%) (Auto) 5.9, Eosinophils (%) (Auto) 0.2, Basophils (%) (Auto) 0.7, Sodium Level 139, Potassium Level 3.8, Chloride Level 104, Carbon Dioxide Level 29, Anion Gap 6, Blood Urea Nitrogen 16, Creatinine 0.7, Estimat Glomerular Filtration Rate > 60, Glucose Level 118H, Calcium Level 8.0L, Total Bilirubin 0.6, Direct Bilirubin 0.2, Aspartate Amino Transf (AST/SGOT) 29, Alanine Aminotransferase (ALT/SGPT) 40, Alkaline Phosphatase 48, Pro-B-Type Natriuretic Peptide 154H, Total Protein 6.8, Albumin 2.9L, Globulin 3.9, Albumin/Globulin Ratio 0.7L, Thyroid Stimulating Hormone (TSH) 1.013, Free Thyroxine [Pending], Digoxin Level < 0.3L Current Medications Medications (Trade) Dose Ordered Sig/Porter Route PRN Reason Start Time Stop Time Status Last Admin Dose Admin Acetaminophen (Tylenol) 6,501 mg Q4H PRN ORAL FEVER >100.5 08/08/20 12:00 09/05/20 18:14 UNV Albuterol Sulfate (Proventil) 2.5 mg Q15MIN PRN HHN Shortness of Breath 08/06/20 10:45 08/06/20 12:00 Azithromycin (Zithromax) 500 mg DAILY ORAL 08/08/20 09:00 08/15/20 08:59 08/08/20 08:31 Ceftriaxone Sodium 1 gm/ Dextrose 55 ml @ 110 mls/hr Q24H IVPB 08/07/20 17:15 08/14/20 17:14 08/07/20 17:35 Dexamethasone Sodium Phosphate (Decadron 10mg/ ml Inj) 6 mg DAILY IV 08/07/20 09:00 08/16/20 09:01 08/08/20 08:30 Dextrose (Dextrose 50%) 25 ml Q30M PRN IV Hypoglycemia 08/06/20 16:45 11/04/20 16:44 Dextrose (Dextrose 50%) 50 ml Q30M PRN IV Hypoglycemia 08/06/20 16:45 11/04/20 16:44 Enoxaparin Sodium (Lovenox) 120 mg EVERY 12 HOURS SUBQ 08/06/20 21:00 11/04/20 20:59 08/08/20 08:30 Guaifenesin (Robitussin) 200 mg Q4H PRN ORAL For Cough 08/06/20 18:30 11/04/20 18:29 Pantoprazole (Protonix) 40 mg DAILY ORAL 08/07/20 09:00 09/06/20 08:59 08/08/20 08:31 Remdesivir 100 mg/ Sodium Chloride 250 ml @ 250 mls/hr Q24H IV 08/08/20 21:00 08/11/20 21:59 Sodium Chloride 1,000 ml @ 75 mls/hr [id number] IV 08/06/20 17:45 09/05/20 17:44 08/08/20 10:00 Assessment/Plan Assessment/Plan 1. COVID-19 pneumonia with fever - remains on 15L NRB saturating in the low-mid 90s - on decadron - on broad-spectrum Abx - now on remdesivir as well per ID - CXR 08/08 shows worsening b/l infiltrates 2. Pancreatitis. - trend lipase 3. Hypoxemia. - Cont supplemental oxygen - keep saO2 >92% 4. Hyperglycemia., likely secondary to steroids - monitor 5. Elevated inflammatory markers. - DVT ppx - on lovenox 6. Pause of 1.5 sec on EKG - 2D echo pending - Thyroid function test result pending - management for cardio We will follow carefully. The care for this patient was discussed with my supervising physician Time spent for this case was approximately 31 minutes The patient was seen and examined at bedside and all new and available data was reviewed in the patients chart. I agree with the above findings, impression, and plan. (Patient was seen earlier today. Signature timestamp does not reflect patient encounter time) Austyn Lopez MD Aug 08, 2020 11:54 Rei Salamanca MD Aug 08, 2020 13:43
[2020-08-08 11:55] VITALS: BP 115/75
--- NOTE | 2020-08-08 12:12 | Cardiac Electrophysiology PN ---
Assessment/Plan Assessment/Plan 1. Bradycardia with HR down to 30s and Pause of 1.5 seconds. Watch the patient on telemetry. Echocardiogram still pending. 2. COVID pneumonia with elevated inflammatory markers, on non-rebreather face mask 15 L. 3. Elevated ferritin of more than 1000, LDH of more than 500. 4. Pancreatitis. Lipase of more than 500. Subjective Subjective On 15 liter NRB FM. Had HR down to 39 yesterday. In Covid isolation Objective Last 24 Hour Vital Signs Date Time Temp Pulse Resp B/P (MAP) Pulse Ox O2 Delivery O2 Flow Rate FiO2 08/08/20 11:55 100.8 89 21 115/75 (88) 97 08/08/20 09:26 99.1 08/08/20 09:00 Non-Rebreather 15.0 08/08/20 08:00 100.6 70 19 126/70 (88) 99 08/08/20 08:00 61 08/08/20 04:00 98.0 45 18 124/79 (94) 99 08/08/20 04:00 63 08/08/20 00:00 97.8 62 18 110/70 (83) 98 08/08/20 00:00 64 08/07/20 21:00 Non-Rebreather 15.0 08/07/20 20:02 99 Non-Rebreather 15.0 100 08/07/20 20:00 97.9 64 17 114/66 (82) 99 08/07/20 16:00 65 08/07/20 16:00 96.8 69 21 124/58 (80) 99 08/07/20 13:08 96 Non-Rebreather 15.0 100 Intake and Output 08/07/20 08/08/20 19:00 07:00 Intake Total 1000 ml 360 ml Output Total 1200 ml Balance -200 ml 360 ml Intake Oral 120 ml 360 ml IV Total 880 ml Output Urine Total 1200 ml # Voids 3 1 # Bowel Movements 1 1 Laboratory Tests Test 08/08/20 05:47 White Blood Count 7.4 K/UL (4.8-10.8) # Red Blood Count 4.29 M/UL (4.70-6.10) L Hemoglobin 13.6 G/DL (14.2-18.0) L Hematocrit 37.1 % (42.0-52.0) L Mean Corpuscular Volume 87 FL (80-99) Mean Corpuscular Hemoglobin 31.7 PG (27.0-31.0) H Mean Corpuscular Hemoglobin Concent 36.6 G/DL (32.0-36.0) H Red Cell Distribution Width 12.6 % (11.6-14.8) Platelet Count 262 K/UL (150-450) Mean Platelet Volume 6.8 FL (6.5-10.1) Neutrophils (%) (Auto) 69.5 % (45.0-75.0) Lymphocytes (%) (Auto) 23.7 % (20.0-45.0) Monocytes (%) (Auto) 5.9 % (1.0-10.0) Eosinophils (%) (Auto) 0.2 % (0.0-3.0) Basophils (%) (Auto) 0.7 % (0.0-2.0) Sodium Level 139 MMOL/L (136-145) Potassium Level 3.8 MMOL/L (3.5-5.1) Chloride Level 104 MMOL/L (98-107) Carbon Dioxide Level 29 MMOL/L (21-32) Anion Gap 6 mmol/L (5-15) Blood Urea Nitrogen 16 mg/dL (7-18) Creatinine 0.7 MG/DL (0.55-1.30) Estimat Glomerular Filtration Rate > 60 mL/min (>60) Glucose Level 118 MG/DL (74-106) H Calcium Level 8.0 MG/DL (8.5-10.1) L Total Bilirubin 0.6 MG/DL (0.2-1.0) Direct Bilirubin 0.2 MG/DL (0.0-0.3) Aspartate Amino Transf (AST/SGOT) 29 U/L (15-37) Alanine Aminotransferase (ALT/SGPT) 40 U/L (12-78) Alkaline Phosphatase 48 U/L (46-116) Pro-B-Type Natriuretic Peptide 154 pg/mL (0-125) H Total Protein 6.8 G/DL (6.4-8.2) Albumin 2.9 G/DL (3.4-5.0) L Globulin 3.9 g/dL Albumin/Globulin Ratio 0.7 (1.0-2.7) L Thyroid Stimulating Hormone (TSH) 1.013 uiU/mL (0.358-3.740) Free Thyroxine Pending Digoxin Level < 0.3 NG/ML (0.5-2.0) L Microbiology Date/Time Source Procedure Growth Status 08/06/20 11:01 Blood Blood Culture - Preliminary NO GROWTH AFTER 24 HOURS Resulted 08/06/20 11:00 Nasopharynx SARS-CoV-2 RdRp Gene Assay - Final Complete 08/06/20 10:55 Blood Blood Culture - Preliminary NO GROWTH AFTER 24 HOURS Resulted Objective HEAD AND NECK: Showed no JVD. LUNGS: Coarse rhonchi. CARDIOVASCULAR: Shows regular S1 and S2 with no gallop. ABDOMEN: Soft. EXTREMITIES: No pitting edema. Jacques Hardwick MD Aug 08, 2020 12:12
--- NOTE | 2020-08-08 14:48 | General Progress Note ---
Subjective Date patient seen: Aug 08, 2020 ROS Limited/Unobtainable: No Allergies: Coded Allergies: No Known Allergies (Unverified , 08/06/20) Subjective No acute events overnight. Patient remains on nonrebreather oxygen. No new complaints today. Reports improving SOB, generally feeling stable. Constitutional: Denies: fever, chills Eye: Denies: double vision, nose congestion ENT: Denies: ear discharge, throat pain Respiratory: Reports: improving shortness of breath Cardiovascular: denies chest pain Gastrointestinal: Denies: abdominal pain, diarrhea, nausea, vomiting Genitourinary: Denies: dysuria, hematuria Musculoskeletal: Denies: joint pain, muscle pain Skin: Denies: rash, dryness Psychiatric: Denies: anxiety, hallucinations Neurological: Denies: headache, numbness Endocrine: Denies: flushing, intolerance to temperature Hematologic/Lymphatic: Denies: anemia, blood clots Objective Last 24 Hour Vital Signs Date Time Temp Pulse Resp B/P (MAP) Pulse Ox O2 Delivery O2 Flow Rate FiO2 08/08/20 12:00 47 08/08/20 11:55 100.8 89 21 115/75 (88) 97 08/08/20 09:26 99.1 08/08/20 09:00 Non-Rebreather 15.0 08/08/20 08:00 100.6 70 19 126/70 (88) 99 08/08/20 08:00 61 08/08/20 04:00 98.0 45 18 124/79 (94) 99 08/08/20 04:00 63 08/08/20 00:00 97.8 62 18 110/70 (83) 98 08/08/20 00:00 64 08/07/20 21:00 Non-Rebreather 15.0 08/07/20 20:02 99 Non-Rebreather 15.0 100 08/07/20 20:00 97.9 64 17 114/66 (82) 99 08/07/20 16:00 65 08/07/20 16:00 96.8 69 21 124/58 (80) 99 Intake and Output 08/07/20 08/08/20 19:00 07:00 Intake Total 1000 ml 360 ml Output Total 1200 ml Balance -200 ml 360 ml Intake Oral 120 ml 360 ml IV Total 880 ml Output Urine Total 1200 ml # Voids 3 1 # Bowel Movements 1 1 Laboratory Tests 08/08/20 05:47: White Blood Count 7.4#, Red Blood Count 4.29L, Hemoglobin 13.6L, Hematocrit 37.1L, Mean Corpuscular Volume 87, Mean Corpuscular Hemoglobin 31.7H, Mean Corpuscular Hemoglobin Concent 36.6H, Red Cell Distribution Width 12.6, Platelet Count 262, Mean Platelet Volume 6.8, Neutrophils (%) (Auto) 69.5, Lymphocytes (%) (Auto) 23.7, Monocytes (%) (Auto) 5.9, Eosinophils (%) (Auto) 0.2, Basophils (%) (Auto) 0.7, Sodium Level 139, Potassium Level 3.8, Chloride Level 104, Carbon Dioxide Level 29, Anion Gap 6, Blood Urea Nitrogen 16, Creatinine 0.7, Estimat Glomerular Filtration Rate > 60, Glucose Level 118H, Calcium Level 8.0L, Total Bilirubin 0.6, Direct Bilirubin 0.2, Aspartate Amino Transf (AST/SGOT) 29, Alanine Aminotransferase (ALT/SGPT) 40, Alkaline Phosphatase 48, Pro-B-Type Natriuretic Peptide 154H, Total Protein 6.8, Albumin 2.9L, Globulin 3.9, Albumin/Globulin Ratio 0.7L, Thyroid Stimulating Hormone (TSH) 1.013, Free Thyroxine [Pending], Digoxin Level < 0.3L Height (Feet): 5 Height (Inches): 11.00 Weight (Pounds): 255 Objective General Appearance: WD/WN, alert, on nonrebreather oxygen mask, no conversational dyspnea noted HEENT: normocephalic, atraumatic, mucous membranes moist, supple Neck: normal alignment, supple, normal inspection Respiratory/Chest: chest wall non-tender, respiratory distress - mild, crackles/rales Cardiovascular/Chest: normal peripheral pulses, normal rate, regular rhythm, no gallop/murmur Abdomen: non tender, soft, no organomegaly Extremities: normal range of motion, non-tender, no calf tenderness, no edema Skin Exam: normal pigmentation, warm/dry 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 Salamanca - Consult ID Dr. Gann - Advance care planning note documented #Sinus pause #Bradycardia Asymptomatic - Check TTE - pending - TSH WNL - Consult cardiology Dr. Hardwick Fluids: IVF Diet: regular DVT ppx: heparin Code: FULL I spent 35 minutes on this patient's case, and 20 minutes were dedicated to counseling and/or care coordination. Discussed with cardiology and pulmonology and ID consultants. Time of note may not reflect time of encounter Obinna Mar M.D. Aug 08, 2020 14:48
[2020-08-08 16:00] VITALS: BP 116/70
[2020-08-08] MEDS: cefTRIAXone 1 GM in D5W 55 ML IVPB SCH (17:35)
[2020-08-08 20:00] VITALS: BP 108/64
[2020-08-08] MEDS: Maintenance Dose:Remdesivir 100mg/NS 230ml x 4 Doses IV SCH ×2 (21:04)
[2020-08-09] VITALS: BP 166/72
[2020-08-09 04:00] VITALS: BP 111/70
--- NOTE | 2020-08-09 06:41 | Cardiac Electrophysiology PN ---
Assessment/Plan Assessment/Plan 1. Sinus Bradycardia with HR down to 30s.Not hypothyroid 12 lead ECG today with HR 41 off any TRINH valeri Watch the patient on telemetry. Echocardiogram still pending. 2. COVID pneumonia with elevated inflammatory markers, on non-rebreather face mask 15 L. On Remdesevir, Dexa and iv Abx 3. Elevated ferritin of more than 1000, LDH of more than 500. 4. Pancreatitis. Lipase of more than 500. MARICARMEN RN Subjective Subjective On 15 liter NRB FM. Had HR down to 30s again. 12 lead ECG SB 41!. In Covid isolation Objective Last 24 Hour Vital Signs Date Time Temp Pulse Resp B/P (MAP) Pulse Ox O2 Delivery O2 Flow Rate FiO2 08/09/20 04:00 37 08/09/20 04:00 98.4 52 17 111/70 (84) 99 08/09/20 00:00 98.7 49 16 166/72 (103) 98 08/09/20 00:00 58 08/08/20 21:00 Non-Rebreather 15.0 08/08/20 20:00 99.2 47 19 108/64 (79) 99 08/08/20 20:00 50 08/08/20 19:13 99 Non-Rebreather 15.0 100 08/08/20 16:00 98.2 70 20 116/70 (85) 97 08/08/20 16:00 58 08/08/20 13:11 97.6 08/08/20 12:00 47 08/08/20 11:55 100.8 89 21 115/75 (88) 97 08/08/20 09:26 99.1 08/08/20 09:00 Non-Rebreather 15.0 08/08/20 08:00 100.6 70 19 126/70 (88) 99 08/08/20 08:00 61 08/08/20 07:30 99 Non-Rebreather 15.0 100 Intake and Output 08/08/20 08/09/20 19:00 07:00 Intake Total 480 ml 1280 ml Output Total 600 ml 2200 ml Balance -120 ml -920 ml Intake Oral 480 ml 1280 ml Output Urine Total 600 ml 2200 ml # Voids 1 4 # Bowel Movements 1 3 Laboratory Tests Test 08/09/20 05:20 White Blood Count Pending Red Blood Count Pending Hemoglobin Pending Hematocrit Pending Mean Corpuscular Volume Pending Mean Corpuscular Hemoglobin Pending Mean Corpuscular Hemoglobin Concent Pending Red Cell Distribution Width Pending Platelet Count Pending Mean Platelet Volume Pending Neutrophils (%) (Auto) Pending Lymphocytes (%) (Auto) Pending Monocytes (%) (Auto) Pending Eosinophils (%) (Auto) Pending Basophils (%) (Auto) Pending Sodium Level Pending Potassium Level Pending Chloride Level Pending Carbon Dioxide Level Pending Blood Urea Nitrogen Pending Creatinine Pending Estimat Glomerular Filtration Rate Pending Glucose Level Pending Calcium Level Pending Total Bilirubin Pending Direct Bilirubin Pending Aspartate Amino Transf (AST/SGOT) Pending Alanine Aminotransferase (ALT/SGPT) Pending Alkaline Phosphatase Pending Total Protein Pending Albumin Pending Globulin Pending Microbiology Date/Time Source Procedure Growth Status 08/06/20 11:01 Blood Blood Culture - Preliminary NO GROWTH AFTER 48 HOURS Resulted 08/06/20 11:00 Nasopharynx SARS-CoV-2 RdRp Gene Assay - Final Complete 08/06/20 10:55 Blood Blood Culture - Preliminary NO GROWTH AFTER 48 HOURS Resulted Objective HEAD AND NECK: Showed no JVD. LUNGS: Coarse rhonchi. CARDIOVASCULAR: Shows regular S1 and S2 with no gallop. ABDOMEN: Soft. EXTREMITIES: No pitting edema. Jcaques Hardwick MD Aug 09, 2020 06:41
[2020-08-09 06:54] LABS: BASOPHILS % (AUTO) 0.3 % (0.0-2.0); EOSINOPHILS % (AUTO) 0.3 % (0.0-3.0); HEMATOCRIT 39.2 % (42.0-52.0); HEMOGLOBIN 13.9 G/DL (14.2-18.0); LYMPHOCYTES % (AUTO) 16.5 % (20.0-45.0); MEAN CORPUSCULAR VOLUME 88 FL (80-99); MONOCYTES % (AUTO) 5.1 % (1.0-10.0); NEUTROPHILS % (AUTO) 77.8 % (45.0-75.0); PLATELET COUNT 317 K/UL (150-450); RED BLOOD COUNT 4.45 M/UL (4.70-6.10); RED CELL DISTRIBUTION WIDTH 12.2 % (11.6-14.8); WHITE BLOOD COUNT 9.5 K/UL (4.8-10.8)
[2020-08-09 07:41] LABS: ALANINE AMINOTRANSFERASE 43 U/L (12-78); ALBUMIN/GLOBULIN RATIO 0.8 (1.0-2.7); ALKALINE PHOSPHATASE 49 U/L (46-116); ANION GAP 6 mmol/L (5-15); ASPARTATE AMINO TRANSFERASE 25 U/L (15-37); BILIRUBIN,DIRECT 0.2 MG/DL (0.0-0.3); BILIRUBIN,TOTAL 0.6 MG/DL (0.2-1.0); BLOOD UREA NITROGEN 14 mg/dL (7-18); CALCIUM 8.1 MG/DL (8.5-10.1); CARBON DIOXIDE 31 MMOL/L (21-32); CHLORIDE 102 MMOL/L (98-107); CREATININE 0.8 MG/DL (0.55-1.30); POTASSIUM 3.8 MMOL/L (3.5-5.1); SODIUM 139 MMOL/L (136-145)
[2020-08-09 08:00] VITALS: BP 118/75
[2020-08-09] MEDS: Azithromycin 250mg tab ORAL SCH (08:40)
[2020-08-09] MEDS: dexAMETHasone 10mg/ml Inj IV SCH (08:40)
[2020-08-09] MEDS: Enoxaparin 120 mg inj SUBQ SCH ×2 (08:49→21:40)
--- NOTE | 2020-08-09 09:17 | Pulmonology Progress Note ---
Subjective ROS Limited/Unobtainable: No Interval Events: bradycardia, Dr. Montero aware Constitutional: Reports: no symptoms HEENT: Repors: no symptoms Respiratory: Reports: dry cough, shortness of breath Cardiovascular: Reports: no symptoms Gastrointestinal/Abdominal: Reports: no symptoms Allergies: Coded Allergies: No Known Allergies (Unverified , 08/06/20) Objective Last 24 Hour Vital Signs Date Time Temp Pulse Resp B/P (MAP) Pulse Ox O2 Delivery O2 Flow Rate FiO2 08/09/20 09:08 Non-Rebreather 15.0 08/09/20 08:00 76 08/09/20 04:00 37 08/09/20 04:00 98.4 52 17 111/70 (84) 99 08/09/20 00:00 98.7 49 16 166/72 (103) 98 08/09/20 00:00 58 08/08/20 21:00 Non-Rebreather 15.0 08/08/20 20:00 99.2 47 19 108/64 (79) 99 08/08/20 20:00 50 08/08/20 19:13 99 Non-Rebreather 15.0 100 08/08/20 16:00 98.2 70 20 116/70 (85) 97 08/08/20 16:00 58 08/08/20 13:11 97.6 08/08/20 12:00 47 08/08/20 11:55 100.8 89 21 115/75 (88) 97 08/08/20 09:26 99.1 Intake and Output 08/08/20 08/09/20 19:00 07:00 Intake Total 480 ml 1280 ml Output Total 600 ml 2200 ml Balance -120 ml -920 ml Intake Oral 480 ml 1280 ml Output Urine Total 600 ml 2200 ml # Voids 1 4 # Bowel Movements 1 3 Objective 08/09 no change 08/08 pt remains to be on NRB 15L 08/07 now on NRB 15L saturating at 93-94% General Appearance: WD/WN, no acute distress HEENT: normocephalic, atraumatic Respiratory: chest wall non-tender, crackles/rales Cardiovascular: normal rate, regular rhythm Abdomen: soft, non tender Microbiology Date/Time Source Procedure Growth Status 08/06/20 11:01 Blood Blood Culture - Preliminary NO GROWTH AFTER 48 HOURS Resulted 08/06/20 11:00 Nasopharynx SARS-CoV-2 RdRp Gene Assay - Final Complete 08/06/20 10:55 Blood Blood Culture - Preliminary NO GROWTH AFTER 48 HOURS Resulted Laboratory Tests 08/09/20 05:20: White Blood Count 9.5, Red Blood Count 4.45L, Hemoglobin 13.9L, Hematocrit 39.2L , Mean Corpuscular Volume 88, Mean Corpuscular Hemoglobin 31.2H, Mean Corpuscular Hemoglobin Concent 35.4, Red Cell Distribution Width 12.2, Platelet Count 317, Mean Platelet Volume 6.6, Neutrophils (%) (Auto) 77.8H, Lymphocytes (%) (Auto) 16.5L, Monocytes (%) (Auto) 5.1, Eosinophils (%) (Auto) 0.3, Basophils (%) (Auto) 0.3, Sodium Level 139, Potassium Level 3.8, Chloride Level 102, Carbon Dioxide Level 31, Anion Gap 6, Blood Urea Nitrogen 14, Creatinine 0.8, Estimat Glomerular Filtration Rate > 60, Glucose Level 95, Calcium Level 8.1L, Total Bilirubin 0.6, Direct Bilirubin 0.2, Aspartate Amino Transf (AST/SGOT) 25, Alanine Aminotransferase (ALT/SGPT) 43, Alkaline Phosphatase 49, Total Protein 6.9, Albumin 3.0L, Globulin 3.9, Albumin/Globulin Ratio 0.8L Current Medications Medications (Trade) Dose Ordered Sig/Porter Route PRN Reason Start Time Stop Time Status Last Admin Dose Admin Acetaminophen (Tylenol) 650 mg Q4H PRN ORAL FEVER >100.5 08/08/20 11:52 09/07/20 11:51 08/08/20 12:41 Albuterol Sulfate (Proventil) 2.5 mg Q15MIN PRN HHN Shortness of Breath 08/06/20 10:45 08/06/20 12:00 Azithromycin (Zithromax) 500 mg DAILY ORAL 08/08/20 09:00 08/15/20 08:59 08/09/20 08:40 Ceftriaxone Sodium 1 gm/ Dextrose 55 ml @ 110 mls/hr Q24H IVPB 08/07/20 17:15 08/14/20 17:14 08/08/20 17:35 Dexamethasone Sodium Phosphate (Decadron 10mg/ ml Inj) 6 mg DAILY IV 08/07/20 09:00 08/16/20 09:01 08/09/20 08:40 Dextrose (Dextrose 50%) 25 ml Q30M PRN IV Hypoglycemia 08/06/20 16:45 11/04/20 16:44 Dextrose (Dextrose 50%) 50 ml Q30M PRN IV Hypoglycemia 08/06/20 16:45 11/04/20 16:44 Enoxaparin Sodium (Lovenox) 120 mg EVERY 12 HOURS SUBQ 08/06/20 21:00 11/04/20 20:59 08/09/20 08:49 Guaifenesin (Robitussin) 200 mg Q4H PRN ORAL For Cough 08/06/20 18:30 11/04/20 18:29 08/09/20 05:37 Pantoprazole (Protonix) 40 mg DAILY ORAL 08/07/20 09:00 09/06/20 08:59 08/09/20 08:40 Remdesivir 100 mg/ Sodium Chloride 250 ml @ 250 mls/hr Q24H IV 08/08/20 21:00 08/11/20 21:59 08/08/20 21:04 Sodium Chloride 1,000 ml @ 75 mls/hr [id number] IV 08/06/20 17:45 09/05/20 17:44 08/08/20 23:20 Assessment/Plan Assessment/Plan 1. COVID-19 pneumonia with fever - remains on 15L NRB saturating in the low-mid 90s - on decadron - on broad-spectrum Abx - on remdesivir as well per ID - CXR 08/08 shows worsening b/l infiltrates 2. Pancreatitis. - trend lipase 3. Hypoxemia. - Cont supplemental oxygen - keep saO2 >92% 4. Hyperglycemia., likely secondary to steroids - monitor 5. Elevated inflammatory markers. - DVT ppx - on lovenox 6. Bradycardia - 2D echo pending - Thyroid function test : wnl - management for cardio We will follow carefully. The care for this patient was discussed with my supervising physician Time spent for this case was approximately 31 minutes Austyn Calixto Aug 09, 2020 09:17 Rei Salamanca MD Aug 09, 2020 11:35
[2020-08-09 12:00] VITALS: BP 124/68
--- NOTE | 2020-08-09 14:34 | General Progress Note ---
Subjective Date patient seen: Aug 09, 2020 ROS Limited/Unobtainable: No Allergies: Coded Allergies: No Known Allergies (Unverified , 08/06/20) Subjective No acute events overnight. Patient continues to do well on nonrebreather oxygen. Feeling slightly better compared to yesterday. Constitutional: Denies: fever, chills Eye: Denies: double vision, nose congestion ENT: Denies: ear discharge, throat pain Respiratory: Reports: improving shortness of breath Cardiovascular: denies chest pain Gastrointestinal: Denies: abdominal pain, diarrhea, nausea, vomiting Genitourinary: Denies: dysuria, hematuria Musculoskeletal: Denies: joint pain, muscle pain Skin: Denies: rash, dryness Psychiatric: Denies: anxiety, hallucinations Neurological: Denies: headache, numbness Endocrine: Denies: flushing, intolerance to temperature Hematologic/Lymphatic: Denies: anemia, blood clots Objective Last 24 Hour Vital Signs Date Time Temp Pulse Resp B/P (MAP) Pulse Ox O2 Delivery O2 Flow Rate FiO2 08/09/20 12:00 77 08/09/20 12:00 98.1 71 20 124/68 (86) 100 08/09/20 09:08 Non-Rebreather 15.0 08/09/20 08:00 76 08/09/20 08:00 97.9 87 24 118/75 (89) 100 08/09/20 04:00 37 08/09/20 04:00 98.4 52 17 111/70 (84) 99 08/09/20 00:00 98.7 49 16 166/72 (103) 98 08/09/20 00:00 58 08/08/20 21:00 Non-Rebreather 15.0 08/08/20 20:00 99.2 47 19 108/64 (79) 99 08/08/20 20:00 50 08/08/20 19:13 99 Non-Rebreather 15.0 100 08/08/20 16:00 98.2 70 20 116/70 (85) 97 08/08/20 16:00 58 Intake and Output 08/08/20 08/09/20 19:00 07:00 Intake Total 480 ml 1280 ml Output Total 600 ml 2200 ml Balance -120 ml -920 ml Intake Oral 480 ml 1280 ml Output Urine Total 600 ml 2200 ml # Voids 1 4 # Bowel Movements 1 3 Laboratory Tests 08/09/20 05:20: White Blood Count 9.5, Red Blood Count 4.45L, Hemoglobin 13.9L, Hematocrit 39.2L , Mean Corpuscular Volume 88, Mean Corpuscular Hemoglobin 31.2H, Mean Corpuscular Hemoglobin Concent 35.4, Red Cell Distribution Width 12.2, Platelet Count 317, Mean Platelet Volume 6.6, Neutrophils (%) (Auto) 77.8H, Lymphocytes (%) (Auto) 16.5L, Monocytes (%) (Auto) 5.1, Eosinophils (%) (Auto) 0.3, Basophils (%) (Auto) 0.3, Sodium Level 139, Potassium Level 3.8, Chloride Level 102, Carbon Dioxide Level 31, Anion Gap 6, Blood Urea Nitrogen 14, Creatinine 0.8, Estimat Glomerular Filtration Rate > 60, Glucose Level 95, Calcium Level 8.1L, Total Bilirubin 0.6, Direct Bilirubin 0.2, Aspartate Amino Transf (AST/SGOT) 25, Alanine Aminotransferase (ALT/SGPT) 43, Alkaline Phosphatase 49, Total Protein 6.9, Albumin 3.0L, Globulin 3.9, Albumin/Globulin Ratio 0.8L Height (Feet): 5 Height (Inches): 11.00 Weight (Pounds): 255 Objective General Appearance: WD/WN, alert, on nonrebreather oxygen mask, no convers ational dyspnea noted HEENT: normocephalic, atraumatic, mucous membranes moist, supple Neck: normal alignment, supple, normal inspection Respiratory/Chest: chest wall non-tender, respiratory distress - mild, crackles/rales Cardiovascular/Chest: normal peripheral pulses, normal rate, regular rhythm, no gallop/murmur Abdomen: non tender, soft, nondistended, no organomegaly Extremities: normal range of motion, non-tender, no calf tenderness, no edema Skin Exam: normal pigmentation, warm/dry 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 Salamanca - Consult ID Dr. Gann - Advance care planning note documented #Sinus pause #Bradycardia Asymptomatic - Check TTE - pending - TSH WNL - Consult cardiology Dr. Hardwick Fluids: IVF Diet: regular DVT ppx: heparin Code: FULL I spent 35 minutes on this patient's case, and 23 minutes were dedicated to counseling and/or care coordination. Discussed with cardiology and pulmonology and ID consultants. Time of note may not reflect time of encounter Obinna Mar M.D. Aug 09, 2020 14:34
[2020-08-09 16:00] VITALS: BP 107/62
[2020-08-09] MEDS: cefTRIAXone 1 GM in D5W 55 ML IVPB SCH (16:58)
[2020-08-09 20:00] VITALS: BP 120/64
[2020-08-09] MEDS: Maintenance Dose:Remdesivir 100mg/NS 230ml x 4 Doses IV SCH ×2 (21:39)
[2020-08-10] VITALS: BP 119/71
[2020-08-10 04:00] VITALS: BP 112/76
[2020-08-10 08:00] VITALS: BP 122/73
[2020-08-10] MEDS: dexAMETHasone 10mg/ml Inj IV SCH (08:51)
[2020-08-10] MEDS: Azithromycin 250mg tab ORAL SCH (08:51)
[2020-08-10] MEDS: Enoxaparin 60mg Inj SUBQ SCH ×2 (08:59→21:19)
[2020-08-10 10:11] LABS: ALANINE AMINOTRANSFERASE 42 U/L (12-78); ALBUMIN/GLOBULIN RATIO 0.7 (1.0-2.7); ALKALINE PHOSPHATASE 51 U/L (46-116); ANION GAP 10 mmol/L (5-15); ASPARTATE AMINO TRANSFERASE 30 U/L (15-37); BASOPHILS % (AUTO) 0.5 % (0.0-2.0); BILIRUBIN,DIRECT 0.2 MG/DL (0.0-0.3); BILIRUBIN,TOTAL 0.8 MG/DL (0.2-1.0); BLOOD UREA NITROGEN 12 mg/dL (7-18); CALCIUM 8.2 MG/DL (8.5-10.1); CARBON DIOXIDE 26 MMOL/L (21-32); CHLORIDE 101 MMOL/L (98-107); CREATININE 0.7 MG/DL (0.55-1.30); EOSINOPHILS % (AUTO) 0.4 % (0.0-3.0); HEMATOCRIT 37.7 % (42.0-52.0); LYMPHOCYTES % (AUTO) 20.4 % (20.0-45.0); MEAN CORPUSCULAR VOLUME 83 FL (80-99); MONOCYTES % (AUTO) 5.1 % (1.0-10.0); NEUTROPHILS % (AUTO) 73.7 % (45.0-75.0); PLATELET COUNT 311 K/UL (150-450); POTASSIUM 3.6 MMOL/L (3.5-5.1); RED BLOOD COUNT 4.55 M/UL (4.70-6.10); RED CELL DISTRIBUTION WIDTH 12.5 % (11.6-14.8); SODIUM 137 MMOL/L (136-145); WHITE BLOOD COUNT 10.2 K/UL (4.8-10.8)
--- NOTE | 2020-08-10 11:28 | Pulmonology Progress Note ---
Subjective ROS Limited/Unobtainable: No Interval Events: bradycardia, Dr. Montero aware Constitutional: Reports: no symptoms HEENT: Repors: no symptoms Respiratory: Reports: dry cough, shortness of breath Cardiovascular: Reports: no symptoms Gastrointestinal/Abdominal: Reports: no symptoms Allergies: Coded Allergies: No Known Allergies (Unverified , 08/06/20) Objective Last 24 Hour Vital Signs Date Time Temp Pulse Resp B/P (MAP) Pulse Ox O2 Delivery O2 Flow Rate FiO2 08/10/20 09:21 101.8 08/10/20 09:00 Venturi Mask 10.0 08/10/20 08:10 101.3 08/10/20 08:00 59 08/10/20 08:00 100.3 73 26 122/73 (89) 95 08/10/20 04:00 54 08/10/20 04:00 99.7 72 23 112/76 (88) 95 08/10/20 00:00 99.3 59 22 119/71 (87) 95 08/10/20 00:00 68 08/09/20 21:00 Venturi Mask 10.0 08/09/20 20:00 99.9 56 22 120/64 (82) 97 08/09/20 20:00 45 08/09/20 16:00 64 08/09/20 16:00 98.1 94 22 107/62 (77) 100 08/09/20 12:00 77 08/09/20 12:00 98.1 71 20 124/68 (86) 100 Intake and Output 08/09/20 08/10/20 19:00 07:00 Intake Total 900 ml Output Total 1500 ml Balance 900 ml -1500 ml Intake Oral 900 ml Output Urine Total 1500 ml # Voids 3 # Bowel Movements 2 General Appearance: WD/WN, no acute distress HEENT: normocephalic, atraumatic Respiratory: chest wall non-tender, crackles/rales Cardiovascular: normal rate, regular rhythm Abdomen: soft, non tender Laboratory Tests 08/10/20 08:35: White Blood Count 10.2, Red Blood Count 4.55L, Hemoglobin 14.0L, Hematocrit 37.7L, Mean Corpuscular Volume 83, Mean Corpuscular Hemoglobin 30.7, Mean Corpuscular Hemoglobin Concent 37.0H, Red Cell Distribution Width 12.5, Platelet Count 311, Mean Platelet Volume 7.5, Neutrophils (%) (Auto) 73.7, Lymphocytes (%) (Auto) 20.4, Monocytes (%) (Auto) 5.1, Eosinophils (%) (Auto) 0.4, Basophils (%) (Auto) 0.5, Sodium Level 137, Potassium Level 3.6, Chloride Level 101, Carbon Dioxide Level 26, Anion Gap 10, Blood Urea Nitrogen 12, Creatinine 0.7, Estimat Glomerular Filtration Rate > 60, Glucose Level 87, Calcium Level 8.2L, Total Bilirubin 0.8, Direct Bilirubin 0.2, Aspartate Amino Transf (AST/SGOT) 30, Alanine Aminotransferase (ALT/SGPT) 42, Alkaline Phosphatase 51, Total Protein 7.1, Albumin 3.0L, Globulin 4.1, Albumin/Globulin Ratio 0.7L Current Medications Medications (Trade) Dose Ordered Sig/Porter Route PRN Reason Start Time Stop Time Status Last Admin Dose Admin Acetaminophen (Tylenol) 650 mg Q4H PRN ORAL FEVER >100.5 08/08/20 11:52 09/07/20 11:51 08/10/20 08:51 Albuterol Sulfate (Proventil) 2.5 mg Q15MIN PRN HHN Shortness of Breath 08/06/20 10:45 08/06/20 12:00 Azithromycin (Zithromax) 500 mg DAILY ORAL 08/08/20 09:00 08/15/20 08:59 08/10/20 08:51 Ceftriaxone Sodium 1 gm/ Dextrose 55 ml @ 110 mls/hr Q24H IVPB 08/07/20 17:15 08/14/20 17:14 08/09/20 16:58 Dexamethasone Sodium Phosphate (Decadron 10mg/ ml Inj) 6 mg DAILY IV 08/07/20 09:00 08/16/20 09:01 08/10/20 08:51 Dextrose (Dextrose 50%) 25 ml Q30M PRN IV Hypoglycemia 08/06/20 16:45 11/04/20 16:44 Dextrose (Dextrose 50%) 50 ml Q30M PRN IV Hypoglycemia 08/06/20 16:45 11/04/20 16:44 Enoxaparin Sodium (Lovenox) 120 mg EVERY 12 HOURS SUBQ 08/10/20 09:00 11/04/20 20:59 08/10/20 08:59 Guaifenesin (Robitussin) 200 mg Q4H PRN ORAL For Cough 08/06/20 18:30 11/04/20 18:29 08/09/20 05:37 Pantoprazole (Protonix) 40 mg DAILY ORAL 08/07/20 09:00 09/06/20 08:59 08/10/20 08:51 Remdesivir 100 mg/ Sodium Chloride 250 ml @ 250 mls/hr Q24H IV 08/08/20 21:00 08/11/20 21:59 08/09/20 21:39 Sodium Chloride 1,000 ml @ 75 mls/hr [id number] IV 08/06/20 17:45 09/05/20 17:44 08/10/20 01:43 Assessment/Plan Assessment/Plan 1. COVID-19 pneumonia with fever - Now on 10 L via Ventimask - on decadron - on broad-spectrum Abx - on remdesivir 2. Pancreatitis. 3. Hypoxemia. - Cont supplemental oxygen - keep saO2 >92%; saturations are better than previous. 4. Hyperglycemia., likely secondary to steroids - monitor 5. Elevated inflammatory markers. - DVT ppx - on lovenox 6. Cardiac arrhythmias (Patient was seen earlier today. Signature timestamp does not reflect patient encounter time) Rei Dobbs MD, MD Aug 10, 2020 11:28
[2020-08-10 12:00] VITALS: BP 123/70
[2020-08-10 16:00] VITALS: BP 125/73
[2020-08-10] MEDS: cefTRIAXone 1 GM in D5W 55 ML IVPB SCH (16:10)
--- NOTE | 2020-08-10 18:52 | General Progress Note ---
Subjective Date patient seen: Aug 10, 2020 ROS Limited/Unobtainable: No Allergies: Coded Allergies: No Known Allergies (Unverified , 08/06/20) Subjective No acute events overnight. Oxygen supplementation starting to wean, now on Venturi mask. Constitutional: Denies: fever, chills Eye: Denies: double vision, nose congestion ENT: Denies: ear discharge, throat pain Respiratory: Reports: improving shortness of breath Cardiovascular: denies chest pain Gastrointestinal: Denies: abdominal pain, diarrhea, nausea, vomiting Genitourinary: Denies: dysuria, hematuria Musculoskeletal: Denies: joint pain, muscle pain Skin: Denies: rash, dryness Psychiatric: Denies: anxiety, hallucinations Neurological: Denies: headache, numbness Endocrine: Denies: flushing, intolerance to temperature Hematologic/Lymphatic: Denies: anemia, blood clots Objective Last 24 Hour Vital Signs Date Time Temp Pulse Resp B/P (MAP) Pulse Ox O2 Delivery O2 Flow Rate FiO2 08/10/20 16:00 98.1 48 18 125/73 (90) 90 08/10/20 16:00 41 08/10/20 12:00 91 08/10/20 12:00 98.8 77 19 123/70 (87) 90 08/10/20 09:21 101.8 08/10/20 09:00 Venturi Mask 10.0 08/10/20 08:10 101.3 08/10/20 08:00 59 08/10/20 08:00 100.3 73 26 122/73 (89) 95 08/10/20 04:00 54 08/10/20 04:00 99.7 72 23 112/76 (88) 95 08/10/20 00:00 99.3 59 22 119/71 (87) 95 08/10/20 00:00 68 08/09/20 21:00 Venturi Mask 10.0 08/09/20 20:00 99.9 56 22 120/64 (82) 97 08/09/20 20:00 45 Intake and Output 08/09/20 08/10/20 19:00 07:00 Intake Total 900 ml Output Total 1500 ml Balance 900 ml -1500 ml Intake Oral 900 ml Output Urine Total 1500 ml # Voids 3 # Bowel Movements 2 Laboratory Tests 08/10/20 08:35: White Blood Count 10.2, Red Blood Count 4.55L, Hemoglobin 14.0L, Hematocrit 37.7L, Mean Corpuscular Volume 83, Mean Corpuscular Hemoglobin 30.7, Mean Corpuscular Hemoglobin Concent 37.0H, Red Cell Distribution Width 12.5, Platelet Count 311, Mean Platelet Volume 7.5, Neutrophils (%) (Auto) 73.7, Lymphocytes (%) (Auto) 20.4, Monocytes (%) (Auto) 5.1, Eosinophils (%) (Auto) 0.4, Basophils (%) (Auto) 0.5, Sodium Level 137, Potassium Level 3.6, Chloride Level 101, Carbon Dioxide Level 26, Anion Gap 10, Blood Urea Nitrogen 12, Creatinine 0.7, Estimat Glomerular Filtration Rate > 60, Glucose Level 87, Calcium Level 8.2L, Total Bilirubin 0.8, Direct Bilirubin 0.2, Aspartate Amino Transf (AST/SGOT) 30, Alanine Aminotransferase (ALT/SGPT) 42, Alkaline Phosphatase 51, Total Protein 7.1, Albumin 3.0L, Globulin 4.1, Albumin/Globulin Ratio 0.7L Height (Feet): 5 Height (Inches): 11.00 Weight (Pounds): 255 Objective General Appearance: WD/WN, alert, on venturi oxygen mask, no conversational dyspnea noted HEENT: normocephalic, atraumatic, mucous membranes moist, supple Neck: normal alignment, supple, normal inspection Respiratory/Chest: chest wall non-tender, respiratory distress - mild, crackles/rales Cardiovascular/Chest: normal peripheral pulses, normal rate, regular rhythm, no gallop/murmur Abdomen: non tender, soft, nondistended, no organomegaly Extremities: normal range of motion, non-tender, no calf tenderness, no edema Skin Exam: normal pigmentation, warm/dry 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 Salamanca - Consult ID Dr. Gann - Advance care planning note documented #Sinus pause #Bradycardia Asymptomatic - Check TTE - pending - TSH WNL - Consult cardiology Dr. Hardwick Fluids: IVF Diet: regular DVT ppx: heparin Code: FULL I spent 35 minutes on this patient's case, and 20 minutes were dedicated to counseling and/or care coordination. Discussed with cardiology and pulmonology and ID consultants. Time of note may not reflect time of encounter Obinna Mar M.D. Aug 10, 2020 18:52
[2020-08-10 20:00] VITALS: BP 127/78
--- NOTE | 2020-08-10 20:18 | Infectious Diseases Prog Note ---
Assessment/Plan Assessment/Plan ASSESSMENT AND PLAN: 1. covid-19 virus infection with pna, ? CAP, hypoxia, fevers - dexamethasone - day # 5 - remdesivir - day # 4/5 - ceftriaxone and azithromycin - day # 5 - monitor hypoxia and labs 3. No known drug allergies. 4. Social history is negative. 5. Family history is noncontributory. 6. MAR is noted. 7. Case is discussed with RN. 8. Case is communicated with care primary care team. Subjective Constitutional: Reports: fever HEENT: Reports: congestion - less Respiratory: Reports: shortness of breath - less Cardiovascular: Denies: chest pain Gastrointestinal/Abdominal: Denies: nausea, vomiting, diarrhea Genitourinary: Reports: other - no estes Neurologic: Denies: headache Psychiatric: Denies: depression Skin: Denies: rash Endocrine: Denies: other Musculoskeletal: Denies: pain Allergies: Coded Allergies: No Known Allergies (Unverified , 08/06/20) Objective Last 24 Hour Vital Signs Date Time Temp Pulse Resp B/P (MAP) Pulse Ox O2 Delivery O2 Flow Rate FiO2 08/10/20 16:00 98.1 48 18 125/73 (90) 90 08/10/20 16:00 41 08/10/20 12:00 91 08/10/20 12:00 98.8 77 19 123/70 (87) 90 08/10/20 09:21 101.8 08/10/20 09:00 Venturi Mask 10.0 08/10/20 08:10 101.3 08/10/20 08:00 59 08/10/20 08:00 100.3 73 26 122/73 (89) 95 08/10/20 04:00 54 08/10/20 04:00 99.7 72 23 112/76 (88) 95 08/10/20 00:00 99.3 59 22 119/71 (87) 95 08/10/20 00:00 68 08/09/20 21:00 Venturi Mask 10.0 Height (Feet): 5 Height (Inches): 11.00 Weight (Pounds): 255 General Appearance: no acute distress HEENT: normocephalic, atraumatic, anicteric, mucous membranes moist Respiratory/Chest: no respiratory distress, no accessory muscle use, crackles/rales, rhonchi - left Cardiovascular: normal rate, regular rhythm, no gallop/murmur Abdomen: normal bowel sounds, soft, non tender, no organomegaly, non distended Genitourinary: other - no estes Extremities: no cyanosis Skin: no rash 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 Impression: Worsening bilateral infiltrates, over 2 days Microbiology Date/Time Source Procedure Growth Status 08/06/20 11:01 Blood Blood Culture - Preliminary NO GROWTH AFTER 4 DAYS Resulted 08/06/20 11:00 Nasopharynx SARS-CoV-2 RdRp Gene Assay - Final Complete Laboratory Tests Test 08/10/20 08:35 White Blood Count 10.2 K/UL (4.8-10.8) Red Blood Count 4.55 M/UL (4.70-6.10) L Hemoglobin 14.0 G/DL (14.2-18.0) L Hematocrit 37.7 % (42.0-52.0) L Mean Corpuscular Volume 83 FL (80-99) Mean Corpuscular Hemoglobin 30.7 PG (27.0-31.0) Mean Corpuscular Hemoglobin Concent 37.0 G/DL (32.0-36.0) H Red Cell Distribution Width 12.5 % (11.6-14.8) Platelet Count 311 K/UL (150-450) Mean Platelet Volume 7.5 FL (6.5-10.1) Neutrophils (%) (Auto) 73.7 % (45.0-75.0) Lymphocytes (%) (Auto) 20.4 % (20.0-45.0) Monocytes (%) (Auto) 5.1 % (1.0-10.0) Eosinophils (%) (Auto) 0.4 % (0.0-3.0) Basophils (%) (Auto) 0.5 % (0.0-2.0) Sodium Level 137 MMOL/L (136-145) Potassium Level 3.6 MMOL/L (3.5-5.1) Chloride Level 101 MMOL/L (98-107) Carbon Dioxide Level 26 MMOL/L (21-32) Anion Gap 10 mmol/L (5-15) Blood Urea Nitrogen 12 mg/dL (7-18) Creatinine 0.7 MG/DL (0.55-1.30) Estimat Glomerular Filtration Rate > 60 mL/min (>60) Glucose Level 87 MG/DL (74-106) Calcium Level 8.2 MG/DL (8.5-10.1) L Total Bilirubin 0.8 MG/DL (0.2-1.0) Direct Bilirubin 0.2 MG/DL (0.0-0.3) Aspartate Amino Transf (AST/SGOT) 30 U/L (15-37) Alanine Aminotransferase (ALT/SGPT) 42 U/L (12-78) Alkaline Phosphatase 51 U/L (46-116) Total Protein 7.1 G/DL (6.4-8.2) Albumin 3.0 G/DL (3.4-5.0) L Globulin 4.1 g/dL Albumin/Globulin Ratio 0.7 (1.0-2.7) L Current Medications Medications (Trade) Dose Ordered Sig/Porter Route PRN Reason Start Time Stop Time Status Last Admin Dose Admin Acetaminophen (Tylenol) 650 mg Q4H PRN ORAL FEVER >100.5 08/08/20 11:52 09/07/20 11:51 08/10/20 08:51 Albuterol Sulfate (Proventil) 2.5 mg Q15MIN PRN HHN Shortness of Breath 08/06/20 10:45 08/06/20 12:00 Azithromycin (Zithromax) 500 mg DAILY ORAL 08/08/20 09:00 08/15/20 08:59 08/10/20 08:51 Ceftriaxone Sodium 1 gm/ Dextrose 55 ml @ 110 mls/hr Q24H IVPB 08/07/20 17:15 08/14/20 17:14 08/10/20 16:10 Dexamethasone Sodium Phosphate (Decadron 10mg/ ml Inj) 6 mg DAILY IV 08/07/20 09:00 08/16/20 09:01 08/10/20 08:51 Dextrose (Dextrose 50%) 25 ml Q30M PRN IV Hypoglycemia 08/06/20 16:45 11/04/20 16:44 Dextrose (Dextrose 50%) 50 ml Q30M PRN IV Hypoglycemia 08/06/20 16:45 11/04/20 16:44 Enoxaparin Sodium (Lovenox) 120 mg EVERY 12 HOURS SUBQ 08/10/20 09:00 11/04/20 20:59 08/10/20 08:59 Guaifenesin (Robitussin) 200 mg Q4H PRN ORAL For Cough 08/06/20 18:30 11/04/20 18:29 08/09/20 05:37 Pantoprazole (Protonix) 40 mg DAILY ORAL 08/07/20 09:00 09/06/20 08:59 08/10/20 08:51 Remdesivir 100 mg/ Sodium Chloride 250 ml @ 250 mls/hr Q24H IV 08/08/20 21:00 08/11/20 21:59 08/09/20 21:39 Sodium Chloride 1,000 ml @ 75 mls/hr [id number] IV 08/06/20 17:45 09/05/20 17:44 08/10/20 15:31 Anam Arcos MD Aug 10, 2020 20:18
--- NOTE | 2020-08-10 21:17 | Cardiac Electrophysiology PN ---
Assessment/Plan Assessment/Plan 1. Sinus Bradycardia with HR down to 30s. Not hypothyroid. Only 34 year old 12 lead ECG showed HR 41 off any TRINH valeri Watch the patient on telemetry. Echocardiogram still pending. 2. COVID pneumonia with elevated inflammatory markers, on non-rebreather face mask 15 L. On Remdesevir, Dexa and iv Abx 3. Elevated ferritin of more than 1000, LDH of more than 500. 4. Pancreatitis. Lipase of more than 500. MARICARMEN RN Subjective Subjective On 15 liter NRB FM. Had HR down to 30s at times. 12 lead ECG SB 41! In Covid isolation Objective Last 24 Hour Vital Signs Date Time Temp Pulse Resp B/P (MAP) Pulse Ox O2 Delivery O2 Flow Rate FiO2 08/10/20 16:00 98.1 48 18 125/73 (90) 90 08/10/20 16:00 41 08/10/20 12:00 91 08/10/20 12:00 98.8 77 19 123/70 (87) 90 08/10/20 09:21 101.8 08/10/20 09:00 Venturi Mask 10.0 08/10/20 08:10 101.3 08/10/20 08:00 59 08/10/20 08:00 100.3 73 26 122/73 (89) 95 08/10/20 04:00 54 08/10/20 04:00 99.7 72 23 112/76 (88) 95 08/10/20 00:00 99.3 59 22 119/71 (87) 95 08/10/20 00:00 68 l Intake and Output 08/09/20 08/10/20 19:00 07:00 Intake Total 900 ml Output Total 1500 ml Balance 900 ml -1500 ml Intake Oral 900 ml Output Urine Total 1500 ml # Voids 3 # Bowel Movements 2 Laboratory Tests Test 08/10/20 08:35 White Blood Count 10.2 K/UL (4.8-10.8) Red Blood Count 4.55 M/UL (4.70-6.10) L Hemoglobin 14.0 G/DL (14.2-18.0) L Hematocrit 37.7 % (42.0-52.0) L Mean Corpuscular Volume 83 FL (80-99) Mean Corpuscular Hemoglobin 30.7 PG (27.0-31.0) Mean Corpuscular Hemoglobin Concent 37.0 G/DL (32.0-36.0) H Red Cell Distribution Width 12.5 % (11.6-14.8) Platelet Count 311 K/UL (150-450) Mean Platelet Volume 7.5 FL (6.5-10.1) Neutrophils (%) (Auto) 73.7 % (45.0-75.0) Lymphocytes (%) (Auto) 20.4 % (20.0-45.0) Monocytes (%) (Auto) 5.1 % (1.0-10.0) Eosinophils (%) (Auto) 0.4 % (0.0-3.0) Basophils (%) (Auto) 0.5 % (0.0-2.0) Sodium Level 137 MMOL/L (136-145) Potassium Level 3.6 MMOL/L (3.5-5.1) Chloride Level 101 MMOL/L (98-107) Carbon Dioxide Level 26 MMOL/L (21-32) Anion Gap 10 mmol/L (5-15) Blood Urea Nitrogen 12 mg/dL (7-18) Creatinine 0.7 MG/DL (0.55-1.30) Estimat Glomerular Filtration Rate > 60 mL/min (>60) Glucose Level 87 MG/DL (74-106) Calcium Level 8.2 MG/DL (8.5-10.1) L Total Bilirubin 0.8 MG/DL (0.2-1.0) Direct Bilirubin 0.2 MG/DL (0.0-0.3) Aspartate Amino Transf (AST/SGOT) 30 U/L (15-37) Alanine Aminotransferase (ALT/SGPT) 42 U/L (12-78) Alkaline Phosphatase 51 U/L (46-116) Total Protein 7.1 G/DL (6.4-8.2) Albumin 3.0 G/DL (3.4-5.0) L Globulin 4.1 g/dL Albumin/Globulin Ratio 0.7 (1.0-2.7) L Objective HEAD AND NECK: Showed no JVD. LUNGS: Coarse rhonchi. CARDIOVASCULAR: Shows regular S1 and S2 with no gallop. ABDOMEN: Soft. EXTREMITIES: No pitting edema. Jacques Hardwick MD Aug 10, 2020 21:17
[2020-08-10] MEDS: Maintenance Dose:Remdesivir 100mg/NS 230ml x 4 Doses IV SCH ×2 (21:20)
[2020-08-11] VITALS: BP 118/66
[2020-08-11 04:00] VITALS: BP 122/62
[2020-08-11 08:00] VITALS: BP 116/57
[2020-08-11] MEDS: dexAMETHasone 10mg/ml Inj IV SCH (08:43)
[2020-08-11] MEDS: Azithromycin 250mg tab ORAL SCH (08:43)
[2020-08-11] MEDS: Enoxaparin 60mg Inj SUBQ SCH ×2 (08:49→21:20)
[2020-08-11 09:29] LABS: ALANINE AMINOTRANSFERASE 46 U/L (12-78); ALBUMIN 3.2 G/DL (3.4-5.0); ALBUMIN/GLOBULIN RATIO 0.7 (1.0-2.7); ALKALINE PHOSPHATASE 54 U/L (46-116); ANION GAP 8 mmol/L (5-15); ASPARTATE AMINO TRANSFERASE 24 U/L (15-37); BILIRUBIN,DIRECT 0.1 MG/DL (0.0-0.3); BILIRUBIN,TOTAL 0.8 MG/DL (0.2-1.0); BLOOD UREA NITROGEN 15 mg/dL (7-18); CALCIUM 8.5 MG/DL (8.5-10.1); CARBON DIOXIDE 27 MMOL/L (21-32); CHLORIDE 102 MMOL/L (98-107); CREATININE 0.7 MG/DL (0.55-1.30); POTASSIUM 3.6 MMOL/L (3.5-5.1); SODIUM 137 MMOL/L (136-145)
[2020-08-11 09:41] LABS: BASOPHILS % (AUTO) 0.4 % (0.0-2.0); EOSINOPHILS % (AUTO) 0.8 % (0.0-3.0); HEMATOCRIT 41.5 % (42.0-52.0); HEMOGLOBIN 14.6 G/DL (14.2-18.0); LYMPHOCYTES % (AUTO) 25.8 % (20.0-45.0); MEAN CORPUSCULAR VOLUME 85 FL (80-99); PLATELET COUNT 387 K/UL (150-450); RED BLOOD COUNT 4.88 M/UL (4.70-6.10); RED CELL DISTRIBUTION WIDTH 13.7 % (11.6-14.8)
--- NOTE | 2020-08-11 09:58 | Pulmonology Progress Note ---
Subjective ROS Limited/Unobtainable: No Interval Events: None new Constitutional: Reports: fever HEENT: Repors: no symptoms Respiratory: Reports: dry cough, shortness of breath Cardiovascular: Reports: no symptoms Gastrointestinal/Abdominal: Denies: nausea, vomiting, diarrhea Psychiatric: Denies: depression Skin: Denies: rash Musculoskeletal: Denies: pain Allergies: Coded Allergies: No Known Allergies (Unverified , 08/06/20) Objective Last 24 Hour Vital Signs Date Time Temp Pulse Resp B/P (MAP) Pulse Ox O2 Delivery O2 Flow Rate FiO2 08/11/20 09:00 Venturi Mask 6.0 08/11/20 08:00 99.1 50 18 116/57 (76) 94 08/11/20 08:00 87 08/11/20 04:00 98.7 45 18 122/62 (82) 94 08/11/20 04:00 45 08/11/20 00:00 99.0 56 19 118/66 (83) 94 08/11/20 00:00 44 08/10/20 21:00 Venturi Mask 10.0 08/10/20 20:00 98.5 65 18 127/78 (94) 92 08/10/20 20:00 69 08/10/20 16:00 98.1 48 18 125/73 (90) 90 08/10/20 16:00 41 08/10/20 12:00 91 08/10/20 12:00 98.8 77 19 123/70 (87) 90 Intake and Output 08/10/20 08/11/20 19:00 07:00 Intake Total 1000 ml 400 ml Output Total 950 ml 1400 ml Balance 50 ml -1000 ml Intake Oral 1000 ml 400 ml Output Urine Total 950 ml 1400 ml # Voids 4 3 # Bowel Movements 1 1 General Appearance: WD/WN, no acute distress HEENT: normocephalic, atraumatic Respiratory: chest wall non-tender, crackles/rales Cardiovascular: normal rate, regular rhythm Abdomen: soft, non tender Laboratory Tests 08/11/20 00:00: White Blood Count 10.0, Red Blood Count 4.88, Hemoglobin 14.6, Hematocrit 41.5L, Mean Corpuscular Volume 85, Mean Corpuscular Hemoglobin 29.9, Mean Corpuscular Hemoglobin Concent 35.2, Red Cell Distribution Width 13.7, Platelet Count 387, Mean Platelet Volume 7.5, Neutrophils (%) (Auto) 69.0, Lymphocytes (%) (Auto) 25.8, Monocytes (%) (Auto) 4.0, Eosinophils (%) (Auto) 0.8, Basophils (%) (Auto) 0.4, Sodium Level 137, Potassium Level 3.6, Chloride Level 102, Carbon Dioxide Level 27, Anion Gap 8, Blood Urea Nitrogen 15, Creatinine 0.7, Estimat Glomerular Filtration Rate > 60, Glucose Level 80, Calcium Level 8.5, Total Bilirubin 0.8, Direct Bilirubin 0.1, Aspartate Amino Transf (AST/SGOT) 24, Alanine Aminotransferase (ALT/SGPT) 46, Alkaline Phosphatase 54, Total Protein 7.5, Albumin 3.2L, Globulin 4.3, Albumin/Globulin Ratio 0.7L Current Medications Medications (Trade) Dose Ordered Sig/Porter Route PRN Reason Start Time Stop Time Status Last Admin Dose Admin Acetaminophen (Tylenol) 650 mg Q4H PRN ORAL FEVER >100.5 08/08/20 11:52 09/07/20 11:51 08/10/20 08:51 Albuterol Sulfate (Proventil) 2.5 mg Q15MIN PRN HHN Shortness of Breath 08/06/20 10:45 08/06/20 12:00 Azithromycin (Zithromax) 500 mg DAILY ORAL 08/08/20 09:00 08/15/20 08:59 08/11/20 08:43 Ceftriaxone Sodium 1 gm/ Dextrose 55 ml @ 110 mls/hr Q24H IVPB 08/07/20 17:15 08/14/20 17:14 08/10/20 16:10 Dexamethasone Sodium Phosphate (Decadron 10mg/ ml Inj) 6 mg DAILY IV 08/07/20 09:00 08/16/20 09:01 08/11/20 08:43 Dextrose (Dextrose 50%) 25 ml Q30M PRN IV Hypoglycemia 08/06/20 16:45 11/04/20 16:44 Dextrose (Dextrose 50%) 50 ml Q30M PRN IV Hypoglycemia 08/06/20 16:45 11/04/20 16:44 Enoxaparin Sodium (Lovenox) 120 mg EVERY 12 HOURS SUBQ 08/10/20 09:00 11/04/20 20:59 08/11/20 08:49 Guaifenesin (Robitussin) 200 mg Q4H PRN ORAL For Cough 08/06/20 18:30 11/04/20 18:29 08/09/20 05:37 Pantoprazole (Protonix) 40 mg DAILY ORAL 08/07/20 09:00 09/06/20 08:59 08/11/20 08:43 Remdesivir 100 mg/ Sodium Chloride 250 ml @ 250 mls/hr Q24H IV 08/08/20 21:00 08/11/20 21:59 08/10/20 21:20 Sodium Chloride 1,000 ml @ 75 mls/hr [id number] IV 08/06/20 17:45 09/05/20 17:44 08/10/20 15:31 Assessment/Plan Assessment/Plan 1. COVID-19 pneumonia with fever - Now on 6 L via Ventimask - on decadron - on broad-spectrum Abx - on remdesivir 2. Pancreatitis. 3. Hypoxemia. - Cont supplemental oxygen - keep saO2 >92%; saturations are better than previous. 4. Hyperglycemia., likely secondary to steroids - monitor 5. Elevated inflammatory markers. - DVT ppx - on lovenox 6. Cardiac arrhythmias (Patient was seen earlier today. Signature timestamp does not reflect patient encounter time) Rei Dobbs MD, MD Aug 11, 2020 09:58
[2020-08-11 12:00] VITALS: BP 112/71
[2020-08-11] MEDS ORDERED: 1/2 NS 1000ml IV ONE (15:39)
[2020-08-11 16:00] VITALS: BP 115/87
[2020-08-11] MEDS: cefTRIAXone 1 GM in D5W 55 ML IVPB SCH (16:26)
--- NOTE | 2020-08-11 18:27 | General Progress Note ---
Subjective Date patient seen: Aug 11, 2020 ROS Limited/Unobtainable: No Allergies: Coded Allergies: No Known Allergies (Unverified , 08/06/20) Subjective No acute events overnight. Oxygen supplementation continuing, back on nonrebreather. No change in symptoms. Constitutional: Denies: fever, chills Eye: Denies: double vision, nose congestion ENT: Denies: ear discharge, throat pain Respiratory: Reports: improving shortness of breath Cardiovascular: denies chest pain Gastrointestinal: Denies: abdominal pain, diarrhea, nausea, vomiting Genitourinary: Denies: dysuria, hematuria Musculoskeletal: Denies: joint pain, muscle pain Skin: Denies: rash, dryness Psychiatric: Denies: anxiety, hallucinations Neurological: Denies: headache, numbness Endocrine: Denies: flushing, intolerance to temperature Hematologic/Lymphatic: Denies: anemia, blood clots Objective Last 24 Hour Vital Signs Date Time Temp Pulse Resp B/P (MAP) Pulse Ox O2 Delivery O2 Flow Rate FiO2 08/11/20 16:00 59 08/11/20 16:00 98.1 85 20 115/87 (96) 94 08/11/20 14:12 99 Non-Rebreather 15.0 100 08/11/20 12:00 54 08/11/20 12:00 96.6 58 18 112/71 (85) 94 08/11/20 09:00 Venturi Mask 6.0 08/11/20 08:00 99.1 50 18 116/57 (76) 94 08/11/20 08:00 87 08/11/20 04:00 98.7 45 18 122/62 (82) 94 08/11/20 04:00 45 08/11/20 00:00 99.0 56 19 118/66 (83) 94 08/11/20 00:00 44 08/10/20 21:00 Venturi Mask 10.0 08/10/20 20:00 98.5 65 18 127/78 (94) 92 08/10/20 20:00 69 Intake and Output 08/10/20 08/11/20 19:00 07:00 Intake Total 1000 ml 400 ml Output Total 950 ml 1400 ml Balance 50 ml -1000 ml Intake Oral 1000 ml 400 ml Output Urine Total 950 ml 1400 ml # Voids 4 3 # Bowel Movements 1 1 Laboratory Tests 12/27/20 00:00: White Blood Count 10.0, Red Blood Count 4.88, Hemoglobin 14.6, Hematocrit 41.5L, Mean Corpuscular Volume 85, Mean Corpuscular Hemoglobin 29.9, Mean Corpuscular Hemoglobin Concent 35.2, Red Cell Distribution Width 13.7, Platelet Count 387, Mean Platelet Volume 7.5, Neutrophils (%) (Auto) 69.0, Lymphocytes (%) (Auto) 25.8, Monocytes (%) (Auto) 4.0, Eosinophils (%) (Auto) 0.8, Basophils (%) (Auto) 0.4, Sodium Level 137, Potassium Level 3.6, Chloride Level 102, Carbon Dioxide Level 27, Anion Gap 8, Blood Urea Nitrogen 15, Creatinine 0.7, Estimat Glomerular Filtration Rate > 60, Glucose Level 80, Calcium Level 8.5, Total Bilirubin 0.8, Direct Bilirubin 0.1, Aspartate Amino Transf (AST/SGOT) 24, Alanine Aminotransferase (ALT/SGPT) 46, Alkaline Phosphatase 54, Total Protein 7.5, Albumin 3.2L, Globulin 4.3, Albumin/Globulin Ratio 0.7L Height (Feet): 5 Height (Inches): 11.00 Weight (Pounds): 255 Objective General Appearance: WD/WN, alert, on venturi oxygen mask, no conversational dyspnea noted HEENT: normocephalic, atraumatic, mucous membranes moist, supple Neck: normal alignment, supple, normal inspection Respiratory/Chest: chest wall non-tender, respiratory distress - mild, crackles/rales Cardiovascular/Chest: normal peripheral pulses, normal rate, regular rhythm, no gallop/murmur Abdomen: non tender, soft, nondistended, no organomegaly Extremities: normal range of motion, non-tender, no calf tenderness, no edema Skin Exam: normal pigmentation, warm/dry 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 Salamanca - Consult ID Dr. Gann - Advance care planning note documented #Sinus pause #Bradycardia Asymptomatic - Check TTE - pending - TSH WNL - Consult cardiology Dr. Hardwick Fluids: IVF Diet: regular DVT ppx: heparin Code: FULL I spent 35 minutes on this patient's case, and 20 minutes were dedicated to counseling and/or care coordination. Discussed with cardiology and pulmonology and ID consultants. Time of note may not reflect time of encounter Obinna Mar M.D. Aug 11, 2020 18:27
[2020-08-11 20:00] VITALS: BP 109/65
[2020-08-11] MEDS: Maintenance Dose:Remdesivir 100mg/NS 230ml x 4 Doses IV SCH ×2 (21:20)
[2020-08-12] VITALS: BP 115/55
[2020-08-12 04:00] VITALS: BP 111/59
[2020-08-12 08:00] VITALS: BP 126/76
[2020-08-12] MEDS: Azithromycin 250mg tab ORAL SCH (09:26)
[2020-08-12] MEDS: dexAMETHasone 10mg/ml Inj IV SCH (09:27)
[2020-08-12] MEDS: Enoxaparin 60mg Inj SUBQ SCH ×2 (09:28→20:16)
--- NOTE | 2020-08-12 11:40 | Pulmonology Progress Note ---
Subjective ROS Limited/Unobtainable: No Interval Events: None new HEENT: Repors: no symptoms Respiratory: Reports: dry cough, shortness of breath Cardiovascular: Reports: no symptoms Gastrointestinal/Abdominal: Denies: nausea, vomiting, diarrhea Psychiatric: Denies: depression Skin: Denies: rash Musculoskeletal: Denies: pain Allergies: Coded Allergies: No Known Allergies (Unverified , 08/06/20) Objective Last 24 Hour Vital Signs Date Time Temp Pulse Resp B/P (MAP) Pulse Ox O2 Delivery O2 Flow Rate FiO2 08/12/20 09:19 71 08/12/20 08:00 98.1 76 19 126/76 (93) 92 08/12/20 04:00 98.1 58 19 111/59 (76) 94 08/12/20 02:00 74 08/12/20 00:00 47 08/12/20 00:00 99.3 57 18 115/55 (75) 94 08/11/20 21:00 95 Venturi Mask 6.0 35 08/11/20 21:00 Venturi Mask 6.0 08/11/20 20:00 99.1 64 20 109/65 (80) 94 08/11/20 16:00 59 08/11/20 16:00 98.1 85 20 115/87 (96) 94 08/11/20 14:12 99 Non-Rebreather 15.0 100 08/11/20 12:00 54 08/11/20 12:00 96.6 58 18 112/71 (85) 94 Intake and Output 08/11/20 08/12/20 18:59 06:59 Intake Total 140 ml 1400 ml Output Total 1200 ml 1600 ml Balance -1060 ml -200 ml Intake Oral 140 ml 1400 ml Output Urine Total 1200 ml 1600 ml # Voids 3 4 # Bowel Movements 1 3 Objective 08/12 now on 6L Venturi mask 08/09 no change 08/08 pt remains to be on NRB 15L 08/07 now on NRB 15L saturating at 93-94% General Appearance: WD/WN, no acute distress HEENT: normocephalic, atraumatic Respiratory: chest wall non-tender, crackles/rales Cardiovascular: normal rate, regular rhythm Abdomen: soft, non tender Current Medications Medications (Trade) Dose Ordered Sig/Porter Route PRN Reason Start Time Stop Time Status Last Admin Dose Admin Acetaminophen (Tylenol) 650 mg Q4H PRN ORAL FEVER >100.5 08/08/20 11:52 09/07/20 11:51 08/10/20 08:51 Azithromycin (Zithromax) 500 mg DAILY ORAL 08/08/20 09:00 08/15/20 08:59 08/12/20 09:26 Ceftriaxone Sodium 1 gm/ Dextrose 55 ml @ 110 mls/hr Q24H IVPB 08/07/20 17:15 08/14/20 17:14 08/11/20 16:26 Dexamethasone Sodium Phosphate (Decadron 10mg/ ml Inj) 6 mg DAILY IV 08/07/20 09:00 08/16/20 09:01 08/12/20 09:27 Dextrose (Dextrose 50%) 25 ml Q30M PRN IV Hypoglycemia 08/06/20 16:45 11/04/20 16:44 Dextrose (Dextrose 50%) 50 ml Q30M PRN IV Hypoglycemia 08/06/20 16:45 11/04/20 16:44 Enoxaparin Sodium (Lovenox) 120 mg EVERY 12 HOURS SUBQ 08/10/20 09:00 11/04/20 20:59 08/12/20 09:28 Guaifenesin (Robitussin) 200 mg Q4H PRN ORAL For Cough 08/06/20 18:30 11/04/20 18:29 08/09/20 05:37 Pantoprazole (Protonix) 40 mg DAILY ORAL 08/07/20 09:00 09/06/20 08:59 08/12/20 09:27 Sodium Chloride 1,000 ml @ 75 mls/hr [id number] IV 08/06/20 17:45 09/05/20 17:44 08/12/20 07:38 Assessment/Plan Assessment/Plan 1. COVID-19 pneumonia with fever - Now on 6 L via Ventimask saturating in the low-mid 90s - on decadron - on broad-spectrum Abx - completed remdesivir - CXR 08/08 shows worsening b/l infiltrates 2. Pancreatitis. - trend lipase 3. Hypoxemia. - Cont supplemental oxygen - keep saO2 >92% 4. Hyperglycemia., likely secondary to steroids - monitor 5. Elevated inflammatory markers. - DVT ppx - on lovenox 6. Bradycardia - 2D echo pending - TTE pending - Thyroid function test : wnl - management for cardio PT eval pending We will follow carefully. The care for this patient was discussed with my supervising physician Time spent for this case was approximately 31 minutes Austyn Calixto Aug 12, 2020 11:40
[2020-08-12 12:00] VITALS: BP 117/66
--- NOTE | 2020-08-12 13:15 | Cardiac Electrophysiology PN ---
Assessment/Plan Assessment/Plan 1. Sinus Bradycardia with HR down to 30s. Not hypothyroid. Only 34 year old 12 lead ECG showed HR 41 off any TRINH valeri Watch the patient on telemetry. Echocardiogram still pending. Hopefully avoid pacer 2. COVID pneumonia with elevated inflammatory markers, on VM 6 L. On Remdesevir, Dexa and iv Abx 3. Elevated ferritin of more than 1000, LDH of more than 500. 4. Pancreatitis. Lipase of more than 500. MARICARMEN RN Subjective Subjective On 6 liter VM. Had HR down to 30s at times but mostly 40s. 12 lead ECG SB 41! In Covid isolation Objective Last 24 Hour Vital Signs Date Time Temp Pulse Resp B/P (MAP) Pulse Ox O2 Delivery O2 Flow Rate FiO2 08/12/20 12:00 97.7 69 22 117/66 (83) 91 08/12/20 11:42 47 08/12/20 09:19 71 08/12/20 09:00 Venturi Mask 6.0 08/12/20 08:00 98.1 76 19 126/76 (93) 92 08/12/20 04:00 98.1 58 19 111/59 (76) 94 08/12/20 02:00 74 08/12/20 00:00 47 08/12/20 00:00 99.3 57 18 115/55 (75) 94 08/11/20 21:00 95 Venturi Mask 6.0 35 08/11/20 21:00 Venturi Mask 6.0 08/11/20 20:00 99.1 64 20 109/65 (80) 94 08/11/20 16:00 59 08/11/20 16:00 98.1 85 20 115/87 (96) 94 08/11/20 14:12 99 Non-Rebreather 15.0 100 Intake and Output 08/11/20 08/12/20 18:59 06:59 Intake Total 140 ml 1400 ml Output Total 1200 ml 1600 ml Balance -1060 ml -200 ml Intake Oral 140 ml 1400 ml Output Urine Total 1200 ml 1600 ml # Voids 3 4 # Bowel Movements 1 3 Objective HEAD AND NECK: Showed no JVD. LUNGS: Coarse rhonchi. CARDIOVASCULAR: Shows regular S1 and S2 with no gallop. ABDOMEN: Soft. EXTREMITIES: No pitting edema. Jacques Hardwick MD Aug 12, 2020 13:15
--- NOTE | 2020-08-12 15:06 | General Progress Note ---
Subjective Date patient seen: Aug 12, 2020 ROS Limited/Unobtainable: No Allergies: Coded Allergies: No Known Allergies (Unverified , 08/06/20) Subjective No acute events overnight. Patient more sleepy today. Has not been moving out of bed at all. Oxygen supplementation continuing, back on nonrebreather, gradual improvement. No change in symptoms. Constitutional: Denies: fever, chills Eye: Denies: double vision, nose congestion ENT: Denies: ear discharge, throat pain Respiratory: Reports: improving shortness of breath Cardiovascular: denies chest pain Gastrointestinal: Denies: abdominal pain, diarrhea, nausea, vomiting Genitourinary: Denies: dysuria, hematuria Musculoskeletal: Denies: joint pain, muscle pain Skin: Denies: rash, dryness Psychiatric: Denies: anxiety, hallucinations Neurological: Denies: headache, numbness Endocrine: Denies: flushing, intolerance to temperature Hematologic/Lymphatic: Denies: anemia, blood clots Objective Last 24 Hour Vital Signs Date Time Temp Pulse Resp B/P (MAP) Pulse Ox O2 Delivery O2 Flow Rate FiO2 08/12/20 12:00 97.7 69 22 117/66 (83) 91 08/12/20 11:42 47 08/12/20 09:19 71 08/12/20 09:00 Venturi Mask 6.0 08/12/20 08:00 98.1 76 19 126/76 (93) 92 08/12/20 04:00 98.1 58 19 111/59 (76) 94 08/12/20 02:00 74 08/12/20 00:00 47 08/12/20 00:00 99.3 57 18 115/55 (75) 94 08/11/20 21:00 95 Venturi Mask 6.0 35 08/11/20 21:00 Venturi Mask 6.0 08/11/20 20:00 99.1 64 20 109/65 (80) 94 08/11/20 16:00 59 08/11/20 16:00 98.1 85 20 115/87 (96) 94 Intake and Output 08/11/20 08/12/20 19:00 07:00 Intake Total 140 ml 1400 ml Output Total 1200 ml 1600 ml Balance -1060 ml -200 ml Intake Oral 140 ml 1400 ml Output Urine Total 1200 ml 1600 ml # Voids 3 4 # Bowel Movements 1 3 Height (Feet): 5 Height (Inches): 11.00 Weight (Pounds): 255 Objective General Appearance: WD/WN, alert, on venturi oxygen mask, no conversational dyspnea noted HEENT: normocephalic, atraumatic, mucous membranes moist, supple Neck: normal alignment, supple, normal inspection Respiratory/Chest: chest wall non-tender, respiratory distress - mild, crackles/rales Cardiovascular/Chest: normal peripheral pulses, normal rate, regular rhythm, no gallop/murmur Abdomen: non tender, soft, nondistended, no organomegaly Extremities: normal range of motion, non-tender, no calf tenderness, no edema Skin Exam: normal pigmentation, warm/dry 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 Salamanca - Consult ID Dr. Gann - Advance care planning note documented - PT mobility evaluation #Sinus pause #Bradycardia Asymptomatic - Check TTE - pending - TSH WNL - Consult cardiology Dr. Hardwick Fluids: IVF Diet: regular DVT ppx: heparin Code: FULL I spent 35 minutes on this patient's case, and 20 minutes were dedicated to counseling and/or care coordination. Discussed with cardiology and pulmonology and ID consultants. Time of note may not reflect time of encounter Obinna Mar M.D. Aug 12, 2020 15:06
[2020-08-12 15:53] VITALS: BP 106/71
--- NOTE | 2020-08-12 16:13 | Infectious Diseases Prog Note ---
Assessment/Plan Assessment/Plan ASSESSMENT AND PLAN: 1. covid-19 virus infection with pna, ? CAP, hypoxia, fevers - dexamethasone - day # 7 - s/p remdesivir - ceftriaxone and azithromycin - day # 7/7 - monitor hypoxia and labs 3. No known drug allergies. 4. Social history is negative. 5. Family history is noncontributory. 6. MAR is noted. 7. Case is discussed with RN. 8. Case is communicated with care primary care team. Subjective Constitutional: Reports: fatigue, other - feel better ; Denies: fever HEENT: Reports: congestion - less Respiratory: Reports: shortness of breath - less Cardiovascular: Denies: chest pain Gastrointestinal/Abdominal: Denies: nausea, vomiting, diarrhea Genitourinary: Reports: other - no estes Neurologic: Denies: headache Psychiatric: Denies: depression Skin: Denies: rash Hematologic: Denies: bleeding Musculoskeletal: Denies: pain Allergies: Coded Allergies: No Known Allergies (Unverified , 08/06/20) Objective Last 24 Hour Vital Signs Date Time Temp Pulse Resp B/P (MAP) Pulse Ox O2 Delivery O2 Flow Rate FiO2 08/12/20 15:53 95.5 74 23 106/71 (83) 92 08/12/20 12:00 97.7 69 22 117/66 (83) 91 08/12/20 11:42 47 08/12/20 09:19 71 08/12/20 09:00 Venturi Mask 6.0 08/12/20 08:00 98.1 76 19 126/76 (93) 92 08/12/20 04:00 98.1 58 19 111/59 (76) 94 08/12/20 02:00 74 08/12/20 00:00 47 08/12/20 00:00 99.3 57 18 115/55 (75) 94 08/11/20 21:00 95 Venturi Mask 6.0 35 08/11/20 21:00 Venturi Mask 6.0 08/11/20 20:00 99.1 64 20 109/65 (80) 94 Height (Feet): 5 Height (Inches): 11.00 Weight (Pounds): 255 General Appearance: no acute distress HEENT: normocephalic, atraumatic, anicteric, mucous membranes moist Respiratory/Chest: crackles/rales, rhonchi - bilaterally Cardiovascular: normal rate, regular rhythm, no gallop/murmur, no JVD Abdomen: normal bowel sounds, soft, non tender, no organomegaly, non distended Genitourinary: other - no estes Extremities: no cyanosis Skin: no rash 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 Impression: Worsening bilateral infiltrates, over 2 days Microbiology Date/Time Source Procedure Growth Status 08/06/20 11:01 Blood Blood Culture - Preliminary NO GROWTH AFTER 4 DAYS Resulted 08/06/20 11:00 Nasopharynx SARS-CoV-2 RdRp Gene Assay - Final Complete Labs Test 08/10/20 08:35 08/11/20 00:00 White Blood Count 10.2 K/UL (4.8-10.8) 10.0 K/UL (4.8-10.8) Red Blood Count 4.55 M/UL (4.70-6.10) 4.88 M/UL (4.70-6.10) Hemoglobin 14.0 G/DL (14.2-18.0) 14.6 G/DL (14.2-18.0) Hematocrit 37.7 % (42.0-52.0) 41.5 % (42.0-52.0) Mean Corpuscular Volume 83 FL (80-99) 85 FL (80-99) Mean Corpuscular Hemoglobin 30.7 PG (27.0-31.0) 29.9 PG (27.0-31.0) Mean Corpuscular Hemoglobin Concent 37.0 G/DL (32.0-36.0) 35.2 G/DL (32.0-36.0) Red Cell Distribution Width 12.5 % (11.6-14.8) 13.7 % (11.6-14.8) Platelet Count 311 K/UL (150-450) 387 K/UL (150-450) Mean Platelet Volume 7.5 FL (6.5-10.1) 7.5 FL (6.5-10.1) Neutrophils (%) (Auto) 73.7 % (45.0-75.0) 69.0 % (45.0-75.0) Lymphocytes (%) (Auto) 20.4 % (20.0-45.0) 25.8 % (20.0-45.0) Monocytes (%) (Auto) 5.1 % (1.0-10.0) 4.0 % (1.0-10.0) Eosinophils (%) (Auto) 0.4 % (0.0-3.0) 0.8 % (0.0-3.0) Basophils (%) (Auto) 0.5 % (0.0-2.0) 0.4 % (0.0-2.0) Sodium Level 137 MMOL/L (136-145) 137 MMOL/L (136-145) Potassium Level 3.6 MMOL/L (3.5-5.1) 3.6 MMOL/L (3.5-5.1) Chloride Level 101 MMOL/L (98-107) 102 MMOL/L (98-107) Carbon Dioxide Level 26 MMOL/L (21-32) 27 MMOL/L (21-32) Anion Gap 10 mmol/L (5-15) 8 mmol/L (5-15) Blood Urea Nitrogen 12 mg/dL (7-18) 15 mg/dL (7-18) Creatinine 0.7 MG/DL (0.55-1.30) 0.7 MG/DL (0.55-1.30) Estimat Glomerular Filtration Rate > 60 mL/min (>60) > 60 mL/min (>60) Glucose Level 87 MG/DL (74-106) 80 MG/DL (74-106) Calcium Level 8.2 MG/DL (8.5-10.1) 8.5 MG/DL (8.5-10.1) Total Bilirubin 0.8 MG/DL (0.2-1.0) 0.8 MG/DL (0.2-1.0) Direct Bilirubin 0.2 MG/DL (0.0-0.3) 0.1 MG/DL (0.0-0.3) Aspartate Amino Transf (AST/SGOT) 30 U/L (15-37) 24 U/L (15-37) Alanine Aminotransferase (ALT/SGPT) 42 U/L (12-78) 46 U/L (12-78) Alkaline Phosphatase 51 U/L (46-116) 54 U/L (46-116) Total Protein 7.1 G/DL (6.4-8.2) 7.5 G/DL (6.4-8.2) Albumin 3.0 G/DL (3.4-5.0) 3.2 G/DL (3.4-5.0) Globulin 4.1 g/dL 4.3 g/dL Albumin/Globulin Ratio 0.7 (1.0-2.7) 0.7 (1.0-2.7) Current Medications Medications (Trade) Dose Ordered Sig/Porter Route PRN Reason Start Time Stop Time Status Last Admin Dose Admin Acetaminophen (Tylenol) 650 mg Q4H PRN ORAL FEVER >100.5 08/08/20 11:52 09/07/20 11:51 08/10/20 08:51 Azithromycin (Zithromax) 500 mg DAILY ORAL 08/08/20 09:00 08/15/20 08:59 08/12/20 09:26 Ceftriaxone Sodium 1 gm/ Dextrose 55 ml @ 110 mls/hr Q24H IVPB 08/07/20 17:15 08/14/20 17:14 08/11/20 16:26 Dexamethasone Sodium Phosphate (Decadron 10mg/ ml Inj) 6 mg DAILY IV 08/07/20 09:00 08/16/20 09:01 08/12/20 09:27 Dextrose (Dextrose 50%) 25 ml Q30M PRN IV Hypoglycemia 08/06/20 16:45 11/04/20 16:44 Dextrose (Dextrose 50%) 50 ml Q30M PRN IV Hypoglycemia 08/06/20 16:45 11/04/20 16:44 Enoxaparin Sodium (Lovenox) 120 mg EVERY 12 HOURS SUBQ 08/10/20 09:00 11/04/20 20:59 08/12/20 09:28 Guaifenesin (Robitussin) 200 mg Q4H PRN ORAL For Cough 08/06/20 18:30 11/04/20 18:29 08/09/20 05:37 Pantoprazole (Protonix) 40 mg DAILY ORAL 08/07/20 09:00 09/06/20 08:59 08/12/20 09:27 Sodium Chloride 1,000 ml @ 75 mls/hr [id number] IV 08/06/20 17:45 09/05/20 17:44 08/12/20 07:38 Anam Arcos MD Aug 12, 2020 16:13
[2020-08-12] MEDS: cefTRIAXone 1 GM in D5W 55 ML IVPB SCH (16:51)
[2020-08-12 19:50] LABS: BASOPHILS % (AUTO) 0.8 % (0.0-2.0); EOSINOPHILS % (AUTO) 0.2 % (0.0-3.0); HEMATOCRIT 42.5 % (42.0-52.0); HEMOGLOBIN 15.9 G/DL (14.2-18.0); LYMPHOCYTES % (AUTO) 15.2 % (20.0-45.0); MEAN CORPUSCULAR VOLUME 83 FL (80-99); MONOCYTES % (AUTO) 3.5 % (1.0-10.0); NEUTROPHILS % (AUTO) 80.2 % (45.0-75.0); PLATELET COUNT 505 K/UL (150-450); RED BLOOD COUNT 5.11 M/UL (4.70-6.10); RED CELL DISTRIBUTION WIDTH 13.4 % (11.6-14.8); WHITE BLOOD COUNT 10.3 K/UL (4.8-10.8)
[2020-08-12 20:00] VITALS: BP 117/75
[2020-08-12 20:28] LABS: ALANINE AMINOTRANSFERASE 68 U/L (12-78); ALBUMIN 3.3 G/DL (3.4-5.0); ALBUMIN/GLOBULIN RATIO 0.7 (1.0-2.7); ALKALINE PHOSPHATASE 65 U/L (46-116); ANION GAP 7 mmol/L (5-15); ASPARTATE AMINO TRANSFERASE 31 U/L (15-37); BILIRUBIN,TOTAL 0.5 MG/DL (0.2-1.0); BLOOD UREA NITROGEN 16 mg/dL (7-18); CALCIUM 8.8 MG/DL (8.5-10.1); CARBON DIOXIDE 27 MMOL/L (21-32); CHLORIDE 102 MMOL/L (98-107); CREATININE 1.1 MG/DL (0.55-1.30); POTASSIUM 4.5 MMOL/L (3.5-5.1); SODIUM 136 MMOL/L (136-145)
[2020-08-13] VITALS: BP 106/59
[2020-08-13 04:00] VITALS: BP 111/60
[2020-08-13 08:00] VITALS: BP 109/56
[2020-08-13] MEDS: Azithromycin 250mg tab ORAL SCH (08:43)
[2020-08-13] MEDS: dexAMETHasone 10mg/ml Inj IV SCH (08:43)
[2020-08-13] MEDS: Enoxaparin 60mg Inj SUBQ SCH (08:44)
--- NOTE | 2020-08-13 09:50 | Diagnostic Imaging Report ---
Indication: Shortness of breath Technique: XRAY Chest 1v Comparison: 08/08/2020 Findings: Extensive bilateral infiltrates are again seen with slightly improved aeration of the right lung compared to the prior exam. No significant pleural effusion. No pneumothorax. Heart size and osseous structures are stable. Impression: Extensive bilateral infiltrates with slight improved aeration of the right lung compared to prior exam.
--- NOTE | 2020-08-13 11:21 | General Progress Note ---
Subjective Allergies: Coded Allergies: No Known Allergies (Unverified , 08/06/20) Subjective Patient is still requiring NRB; discussed proning with him and nurse. Objective Last 24 Hour Vital Signs Date Time Temp Pulse Resp B/P (MAP) Pulse Ox O2 Delivery O2 Flow Rate FiO2 08/13/20 09:00 Venturi Mask 6.0 08/13/20 08:12 96 Venturi Mask 6.0 35 08/13/20 08:00 72 08/13/20 08:00 98.7 72 22 109/56 (73) 90 08/13/20 04:00 98.2 54 18 111/60 (77) 95 08/13/20 04:00 62 08/13/20 00:00 98.1 50 19 106/59 (75) 94 08/13/20 00:00 51 08/12/20 21:00 Venturi Mask 6.0 08/12/20 20:00 59 08/12/20 20:00 97.8 71 20 117/75 (89) 95 08/12/20 15:53 95.5 74 23 106/71 (83) 92 08/12/20 15:14 66 08/12/20 12:00 97.7 69 22 117/66 (83) 91 08/12/20 11:42 47 Intake and Output 08/12/20 08/13/20 19:00 07:00 Intake Total 1880 ml 1400 ml Output Total 1800 ml 1800 ml Balance 80 ml -400 ml Intake Oral 1000 ml 1400 ml IV Total 880 ml Output Urine Total 1800 ml 1800 ml # Voids 4 # Bowel Movements 1 Laboratory Tests 08/12/20 19:30: White Blood Count 10.3, Red Blood Count 5.11, Hemoglobin 15.9, Hematocrit 42.5, Mean Corpuscular Volume 83, Mean Corpuscular Hemoglobin 31.1H, Mean Corpuscular Hemoglobin Concent 37.4H, Red Cell Distribution Width 13.4, Platelet Count 505H, Mean Platelet Volume 7.2, Neutrophils (%) (Auto) 80.2H, Lymphocytes (%) (Auto) 15.2L, Monocytes (%) (Auto) 3.5, Eosinophils (%) (Auto) 0.2, Basophils (%) (Auto) 0.8, Sodium Level 136, Potassium Level 4.5, Chloride Level 102, Carbon Dioxide Level 27, Anion Gap 7, Blood Urea Nitrogen 16, Creatinine 1.1#, Estimat Glomerular Filtration Rate > 60, Glucose Level 138H, Calcium Level 8.8, Total Bilirubin 0.5, Aspartate Amino Transf (AST/SGOT) 31, Alanine Aminotransferase (ALT/SGPT) 68, Alkaline Phosphatase 65, Total Protein 7.8, Albumin 3.3L, Globulin 4.5, Albumin/Globulin Ratio 0.7L Height (Feet): 5 Height (Inches): 11.00 Weight (Pounds): 255 General Appearance: WD/WN, no apparent distress Cardiovascular: normal rate, regular rhythm Respiratory/Chest: other - on NRB, hypoxic Abdomen: non tender, soft Extremities: normal range of motion 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 Salamanca - Consult ID Dr. Gann - Advance care planning note documented - PT mobility evaluation #Sinus pause #Bradycardia Asymptomatic - TTE - noted - TSH WNL - Consult cardiology Dr. Hardwick Fluids: IVF Diet: regular DVT ppx: heparin Code: FULL I spent 34 minutes on this patient's case, and 21 minutes were dedicated to counseling and/or care coordination. Discussed with cardiology and pulmonology and ID consultants. Time of note may not reflect time of encounter 08/13: Attempt proning as tolerated; discussed with patient Ibis Shah D.O. Aug 13, 2020 11:21
--- NOTE | 2020-08-13 11:22 | Pulmonology Progress Note ---
Subjective ROS Limited/Unobtainable: No Interval Events: None new Constitutional: Reports: fatigue, other - feels better ; Denies: fever HEENT: Repors: no symptoms Respiratory: Reports: dry cough, shortness of breath Cardiovascular: Reports: no symptoms Gastrointestinal/Abdominal: Denies: nausea, vomiting, diarrhea Psychiatric: Denies: depression Skin: Denies: rash Musculoskeletal: Denies: pain Allergies: Coded Allergies: No Known Allergies (Unverified , 08/06/20) Objective Last 24 Hour Vital Signs Date Time Temp Pulse Resp B/P (MAP) Pulse Ox O2 Delivery O2 Flow Rate FiO2 08/13/20 09:00 Venturi Mask 6.0 08/13/20 08:12 96 Venturi Mask 6.0 35 08/13/20 08:00 72 08/13/20 08:00 98.7 72 22 109/56 (73) 90 08/13/20 04:00 98.2 54 18 111/60 (77) 95 08/13/20 04:00 62 08/13/20 00:00 98.1 50 19 106/59 (75) 94 08/13/20 00:00 51 08/12/20 21:00 Venturi Mask 6.0 08/12/20 20:00 59 08/12/20 20:00 97.8 71 20 117/75 (89) 95 08/12/20 15:53 95.5 74 23 106/71 (83) 92 08/12/20 15:14 66 08/12/20 12:00 97.7 69 22 117/66 (83) 91 08/12/20 11:42 47 Intake and Output 08/12/20 08/13/20 19:00 07:00 Intake Total 1880 ml 1400 ml Output Total 1800 ml 1800 ml Balance 80 ml -400 ml Intake Oral 1000 ml 1400 ml IV Total 880 ml Output Urine Total 1800 ml 1800 ml # Voids 4 # Bowel Movements 1 Objective 08/13 remains on 6L Venturi mask 08/12 now on 6L Venturi mask 08/09 no change 08/08 pt remains to be on NRB 15L 08/07 now on NRB 15L saturating at 93-94% General Appearance: WD/WN, no acute distress HEENT: normocephalic, atraumatic Respiratory: chest wall non-tender, crackles/rales Cardiovascular: normal rate, regular rhythm Abdomen: soft, non tender Laboratory Tests 08/12/20 19:30: White Blood Count 10.3, Red Blood Count 5.11, Hemoglobin 15.9, Hematocrit 42.5, Mean Corpuscular Volume 83, Mean Corpuscular Hemoglobin 31.1H, Mean Corpuscular Hemoglobin Concent 37.4H, Red Cell Distribution Width 13.4, Platelet Count 505H, Mean Platelet Volume 7.2, Neutrophils (%) (Auto) 80.2H, Lymphocytes (%) (Auto) 15.2L, Monocytes (%) (Auto) 3.5, Eosinophils (%) (Auto) 0.2, Basophils (%) (Auto) 0.8, Sodium Level 136, Potassium Level 4.5, Chloride Level 102, Carbon Dioxide Level 27, Anion Gap 7, Blood Urea Nitrogen 16, Creatinine 1.1#, Estimat Glomerular Filtration Rate > 60, Glucose Level 138H, Calcium Level 8.8, Total Bilirubin 0.5, Aspartate Amino Transf (AST/SGOT) 31, Alanine Aminotransferase (ALT/SGPT) 68, Alkaline Phosphatase 65, Total Protein 7.8, Albumin 3.3L, Globulin 4.5, Albumin/Globulin Ratio 0.7L Current Medications Medications (Trade) Dose Ordered Sig/Porter Route PRN Reason Start Time Stop Time Status Last Admin Dose Admin Acetaminophen (Tylenol) 650 mg Q4H PRN ORAL FEVER >100.5 08/08/20 11:52 09/07/20 11:51 08/10/20 08:51 Azithromycin (Zithromax) 500 mg DAILY ORAL 08/08/20 09:00 08/15/20 08:59 08/13/20 08:43 Ceftriaxone Sodium 1 gm/ Dextrose 55 ml @ 110 mls/hr Q24H IVPB 08/07/20 17:15 08/14/20 17:14 08/12/20 16:51 Dexamethasone Sodium Phosphate (Decadron 10mg/ ml Inj) 6 mg DAILY IV 08/07/20 09:00 08/16/20 09:01 08/13/20 08:43 Dextrose (Dextrose 50%) 25 ml Q30M PRN IV Hypoglycemia 08/06/20 16:45 11/04/20 16:44 Dextrose (Dextrose 50%) 50 ml Q30M PRN IV Hypoglycemia 08/06/20 16:45 11/04/20 16:44 Enoxaparin Sodium (Lovenox) 120 mg EVERY 12 HOURS SUBQ 08/13/20 21:00 11/04/20 20:59 Guaifenesin (Robitussin) 200 mg Q4H PRN ORAL For Cough 08/06/20 18:30 11/04/20 18:29 08/09/20 05:37 Pantoprazole (Protonix) 40 mg DAILY ORAL 08/07/20 09:00 09/06/20 08:59 08/13/20 08:43 Sodium Chloride 1,000 ml @ 75 mls/hr [id number] IV 08/06/20 17:45 09/05/20 17:44 08/13/20 08:46 Assessment/Plan Assessment/Plan 1. COVID-19 pneumonia with fever - Remains on 6 L via Ventimask saturating in the low-mid 90s - on dexamethasone - also on broad-spectrum Abx - completed remdesivir - CXR 08/08 shows worsening b/l infiltrates - CXR 08/13 slight improvement 2. Pancreatitis. - trend lipase 3. Hypoxemia. - Cont supplemental oxygen - keep saO2 >92% 4. Hyperglycemia., likely secondary to steroids - monitor 5. Elevated inflammatory markers. - DVT ppx - on lovenox 6. Bradycardia - 2D echo LVEF 65% - TTE pending - Thyroid function test : wnl - management for cardio We will follow carefully. The care for this patient was discussed with my supervising physician Time spent for this case was approximately 31 minutes Austyn Calixto Aug 13, 2020 11:22
[2020-08-13 12:00] VITALS: BP 109/60
--- NOTE | 2020-08-13 12:04 | Cardiac Electrophysiology PN ---
Assessment/Plan Assessment/Plan 1. Sinus Bradycardia with HR down to 30s. Not hypothyroid. Only 34 year old 12 lead ECG showed HR 41 off any TRINH valeri Watch the patient on telemetry. Echocardiogram EF 65%. Hopefully avoid pacer 2. COVID pneumonia with elevated inflammatory markers, on VM 6 L. On Remdesevir, Dexa and iv Abx 3. Elevated ferritin of more than 1000, LDH of more than 500. 4. Pancreatitis. Lipase of more than 500. MARICARMEN RN Subjective Subjective On 6 liter VM. HR down to 30s at times but mostly 40s. 12 lead ECG SB 41 In Covid isolation. EF 65% Objective Last 24 Hour Vital Signs Date Time Temp Pulse Resp B/P (MAP) Pulse Ox O2 Delivery O2 Flow Rate FiO2 08/13/20 09:00 Venturi Mask 6.0 08/13/20 08:12 96 Venturi Mask 6.0 35 08/13/20 08:00 72 08/13/20 08:00 98.7 72 22 109/56 (73) 90 08/13/20 04:00 98.2 54 18 111/60 (77) 95 08/13/20 04:00 62 08/13/20 00:00 98.1 50 19 106/59 (75) 94 08/13/20 00:00 51 08/12/20 21:00 Venturi Mask 6.0 08/12/20 20:00 59 08/12/20 20:00 97.8 71 20 117/75 (89) 95 08/12/20 15:53 95.5 74 23 106/71 (83) 92 08/12/20 15:14 66 Intake and Output 08/12/20 08/13/20 19:00 07:00 Intake Total 1880 ml 1400 ml Output Total 1800 ml 1800 ml Balance 80 ml -400 ml Intake Oral 1000 ml 1400 ml IV Total 880 ml Output Urine Total 1800 ml 1800 ml # Voids 4 # Bowel Movements 1 Laboratory Tests Test 08/12/20 19:30 White Blood Count 10.3 K/UL (4.8-10.8) Red Blood Count 5.11 M/UL (4.70-6.10) Hemoglobin 15.9 G/DL (14.2-18.0) Hematocrit 42.5 % (42.0-52.0) Mean Corpuscular Volume 83 FL (80-99) Mean Corpuscular Hemoglobin 31.1 PG (27.0-31.0) H Mean Corpuscular Hemoglobin Concent 37.4 G/DL (32.0-36.0) H Red Cell Distribution Width 13.4 % (11.6-14.8) Platelet Count 505 K/UL (150-450) H Mean Platelet Volume 7.2 FL (6.5-10.1) Neutrophils (%) (Auto) 80.2 % (45.0-75.0) H Lymphocytes (%) (Auto) 15.2 % (20.0-45.0) L Monocytes (%) (Auto) 3.5 % (1.0-10.0) Eosinophils (%) (Auto) 0.2 % (0.0-3.0) Basophils (%) (Auto) 0.8 % (0.0-2.0) Sodium Level 136 MMOL/L (136-145) Potassium Level 4.5 MMOL/L (3.5-5.1) Chloride Level 102 MMOL/L (98-107) Carbon Dioxide Level 27 MMOL/L (21-32) Anion Gap 7 mmol/L (5-15) Blood Urea Nitrogen 16 mg/dL (7-18) Creatinine 1.1 MG/DL (0.55-1.30) # Estimat Glomerular Filtration Rate > 60 mL/min (>60) Glucose Level 138 MG/DL (74-106) H Calcium Level 8.8 MG/DL (8.5-10.1) Total Bilirubin 0.5 MG/DL (0.2-1.0) Aspartate Amino Transf (AST/SGOT) 31 U/L (15-37) Alanine Aminotransferase (ALT/SGPT) 68 U/L (12-78) Alkaline Phosphatase 65 U/L (46-116) Total Protein 7.8 G/DL (6.4-8.2) Albumin 3.3 G/DL (3.4-5.0) L Globulin 4.5 g/dL Albumin/Globulin Ratio 0.7 (1.0-2.7) L Objective HEAD AND NECK: Showed no JVD. LUNGS: Coarse rhonchi. CARDIOVASCULAR: Shows regular S1 and S2 with no gallop. ABDOMEN: Soft. EXTREMITIES: No pitting edema. Jacques Hardwick MD Aug 13, 2020 12:04
[2020-08-13 16:00] VITALS: BP 121/78
[2020-08-13] MEDS: cefTRIAXone 1 GM in D5W 55 ML IVPB SCH (16:13)
[2020-08-13 20:00] VITALS: BP 118/71
[2020-08-13] MEDS: Enoxaparin 120 mg inj SUBQ SCH (20:32)
[2020-08-14] VITALS: BP 122/72
[2020-08-14 04:00] VITALS: BP 108/76
[2020-08-14] MEDS ORDERED: Albuterol 90mcg Inhaler 8gm INH PRN ×2 (06:30→08:30)
[2020-08-14 08:00] VITALS: BP 112/62
[2020-08-14] MEDS: dexAMETHasone 10mg/ml Inj IV SCH (08:22)
[2020-08-14] MEDS: Azithromycin 250mg tab ORAL SCH (08:23)
[2020-08-14] MEDS: Enoxaparin 120 mg inj SUBQ SCH ×2 (08:27→21:38)
[2020-08-14 12:00] VITALS: BP 115/79
--- NOTE | 2020-08-14 12:51 | General Progress Note ---
Subjective Allergies: Coded Allergies: No Known Allergies (Unverified , 08/06/20) Subjective Patient is still requiring NRB; waiting on today's labs. He feels better with proning. Objective Last 24 Hour Vital Signs Date Time Temp Pulse Resp B/P (MAP) Pulse Ox O2 Delivery O2 Flow Rate FiO2 08/14/20 12:00 61 08/14/20 12:00 96.7 93 18 115/79 (91) 98 08/14/20 09:00 Venturi Mask 6.0 08/14/20 08:00 72 08/14/20 08:00 98.1 91 21 112/62 (79) 98 08/14/20 04:00 58 08/14/20 04:00 97.9 38 22 108/76 (87) 98 08/14/20 00:00 63 08/14/20 00:00 98.4 78 20 122/72 (89) 96 08/13/20 21:00 Venturi Mask 6.0 08/13/20 20:00 48 08/13/20 20:00 97.9 76 20 118/71 (87) 94 08/13/20 19:33 95 Venturi Mask 6.0 35 08/13/20 16:00 61 08/13/20 16:00 98.2 77 20 121/78 (92) 96 Intake and Output 08/13/20 08/14/20 19:00 07:00 Intake Total 1500 ml 2225 ml Output Total 1200 ml Balance 1500 ml 1025 ml Intake Oral 1500 ml 1400 ml IV Total 825 ml Output Urine Total 1200 ml # Voids 3 # Bowel Movements 2 2 Height (Feet): 5 Height (Inches): 11.00 Weight (Pounds): 255 General Appearance: WD/WN EENT: PERRL/EOMI Cardiovascular: normal rate, regular rhythm, regularly irregular Respiratory/Chest: other - on NRB Abdomen: normal bowel sounds, soft Extremities: normal range of motion 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 Salamanca - Consult ID Dr. Gann - Advance care planning note documented - PT mobility evaluation #Sinus pause #Bradycardia Asymptomatic - TTE - noted - TSH WNL - Consult cardiology Dr. Hardwick Fluids: IVF Diet: regular DVT ppx: heparin Code: FULL I spent 34 minutes on this patient's case, and 21 minutes were dedicated to counseling and/or care coordination. Discussed with cardiology and pulmonology and ID consultants. Time of note may not reflect time of encounter 08/13: Attempt proning as tolerated; discussed with patient Assessment/Plan Assessment/Plan: #COVID-19 Pneumonia #Acute hypoxemic respiratory failure - gradual improvement today - currently on supplemental oxygen - elevated inflammatory markers, ferritin - dexamethasone, remdesivir, per ID recs - antibiotics per ID recs - Consult pulmonology Dr. Salamanca - Consult ID Dr. Gann - Advance care planning note documented - PT mobility evaluation - Proning as tolerated #Sinus pause #Bradycardia Asymptomatic - TTE - noted - TSH WNL - Consult cardiology Dr. Hardwick Fluids: IVF Diet: regular DVT ppx: heparin Code: FULL I spent 33 minutes on this patient's case, and 22 minutes were dedicated to counseling and/or care coordination. Discussed with cardiology and pulmonology and ID consultants. Time of note may not reflect time of encounter 08/14: Continue proning; awaiting todays labs Ibis Shah D.O. Aug 14, 2020 12:51
--- NOTE | 2020-08-14 14:11 | Pulmonology Progress Note ---
Subjective ROS Limited/Unobtainable: No Interval Events: None new Constitutional: Reports: fatigue, other - feels better ; Denies: fever HEENT: Repors: no symptoms Respiratory: Reports: dry cough, shortness of breath Cardiovascular: Reports: no symptoms Gastrointestinal/Abdominal: Denies: nausea, vomiting, diarrhea Psychiatric: Denies: depression Skin: Denies: rash Musculoskeletal: Denies: pain Allergies: Coded Allergies: No Known Allergies (Unverified , 08/06/20) Objective Last 24 Hour Vital Signs Date Time Temp Pulse Resp B/P (MAP) Pulse Ox O2 Delivery O2 Flow Rate FiO2 08/14/20 12:00 61 08/14/20 12:00 96.7 93 18 115/79 (91) 98 08/14/20 09:00 Venturi Mask 6.0 08/14/20 08:00 72 08/14/20 08:00 98.1 91 21 112/62 (79) 98 08/14/20 07:00 98 Venturi Mask 6.0 35 08/14/20 04:00 58 08/14/20 04:00 97.9 38 22 108/76 (87) 98 08/14/20 00:00 63 08/14/20 00:00 98.4 78 20 122/72 (89) 96 08/13/20 21:00 Venturi Mask 6.0 08/13/20 20:00 48 08/13/20 20:00 97.9 76 20 118/71 (87) 94 08/13/20 19:33 95 Venturi Mask 6.0 35 08/13/20 16:00 61 08/13/20 16:00 98.2 77 20 121/78 (92) 96 Intake and Output 08/13/20 08/14/20 19:00 07:00 Intake Total 1500 ml 2225 ml Output Total 1200 ml Balance 1500 ml 1025 ml Intake Oral 1500 ml 1400 ml IV Total 825 ml Output Urine Total 1200 ml # Voids 3 # Bowel Movements 2 2 Objective 08/14 remains on 6L Venturi mask, saturating well; pt reports feeling better 08/13 remains on 6L Venturi mask 08/12 now on 6L Venturi mask 08/09 no change 08/08 pt remains to be on NRB 15L 08/07 now on NRB 15L saturating at 93-94% General Appearance: WD/WN, no acute distress HEENT: normocephalic, atraumatic Respiratory: chest wall non-tender, crackles/rales Cardiovascular: normal rate, regular rhythm Abdomen: soft, non tender Current Medications Medications (Trade) Dose Ordered Sig/Porter Route PRN Reason Start Time Stop Time Status Last Admin Dose Admin Acetaminophen (Tylenol) 650 mg Q4H PRN ORAL FEVER >100.5 08/08/20 11:52 09/07/20 11:51 08/10/20 08:51 Albuterol Sulfate (Proventil MDI) 2 puff Q4H PRN INH Shortness of Breath 08/14/20 06:30 11/12/20 06:29 Azithromycin (Zithromax) 500 mg DAILY ORAL 08/08/20 09:00 08/15/20 08:59 08/14/20 08:23 Ceftriaxone Sodium 1 gm/ Dextrose 55 ml @ 110 mls/hr Q24H IVPB 08/07/20 17:15 08/14/20 17:14 08/13/20 16:13 Dexamethasone Sodium Phosphate (Decadron 10mg/ ml Inj) 6 mg DAILY IV 08/07/20 09:00 08/16/20 09:01 08/14/20 08:22 Dextrose (Dextrose 50%) 25 ml Q30M PRN IV Hypoglycemia 08/06/20 16:45 11/04/20 16:44 Dextrose (Dextrose 50%) 50 ml Q30M PRN IV Hypoglycemia 08/06/20 16:45 11/04/20 16:44 Enoxaparin Sodium (Lovenox) 120 mg EVERY 12 HOURS SUBQ 08/13/20 21:00 11/04/20 20:59 08/14/20 08:27 Guaifenesin (Robitussin) 200 mg Q4H PRN ORAL For Cough 08/06/20 18:30 11/04/20 18:29 08/09/20 05:37 Pantoprazole (Protonix) 40 mg DAILY ORAL 08/07/20 09:00 09/06/20 08:59 08/14/20 08:23 Assessment/Plan Assessment/Plan 1. COVID-19 pneumonia with fever - Remains on 6 L via Ventimask saturation improved - on dexamethasone - also on broad-spectrum Abx - completed remdesivir - CXR 08/08 shows worsening b/l infiltrates - CXR 08/13 slight improvement 2. Pancreatitis. - trend lipase 3. Hypoxemia. - Cont supplemental oxygen - keep saO2 >92%; titrate down as tolerated 4. Hyperglycemia., likely secondary to steroids - monitor 5. Elevated inflammatory markers. - DVT ppx - on lovenox 6. Bradycardia - 2D echo LVEF 65% - TTE pending - Thyroid function test : wnl - management for cardio We will follow carefully. The care for this patient was discussed with my supervising physician Time spent for this case was approximately 31 minutes Austyn Calixto Aug 14, 2020 14:11
--- NOTE | 2020-08-14 14:57 | Cardiac Electrophysiology PN ---
Assessment/Plan Assessment/Plan 1. Sinus Bradycardia with HR down to 30s. Not hypothyroid. Only 34 year old 12 lead ECG showed HR 41 off any TRINH valeri Watch the patient on telemetry. Echocardiogram EF 65%. Hopefully avoid pacer 2. COVID pneumonia with elevated inflammatory markers, on VM 6 L. On Remdesevir, Dexa and iv Abx 3. Elevated ferritin of more than 1000, LDH of more than 500. 4. Pancreatitis. Lipase of more than 500. MARICARMEN RN Subjective Subjective On 6 liter VM. Alert in NAD. HR down to 30s at times but mostly 40s. 12 lead ECG SB 41 In Covid isolation. EF 65% Objective Last 24 Hour Vital Signs Date Time Temp Pulse Resp B/P (MAP) Pulse Ox O2 Delivery O2 Flow Rate FiO2 08/14/20 12:00 61 08/14/20 12:00 96.7 93 18 115/79 (91) 98 08/14/20 09:00 Venturi Mask 6.0 08/14/20 08:00 72 08/14/20 08:00 98.1 91 21 112/62 (79) 98 08/14/20 07:00 98 Venturi Mask 6.0 35 08/14/20 04:00 58 08/14/20 04:00 97.9 38 22 108/76 (87) 98 08/14/20 00:00 63 08/14/20 00:00 98.4 78 20 122/72 (89) 96 08/13/20 21:00 Venturi Mask 6.0 08/13/20 20:00 48 08/13/20 20:00 97.9 76 20 118/71 (87) 94 08/13/20 19:33 95 Venturi Mask 6.0 35 08/13/20 16:00 61 08/13/20 16:00 98.2 77 20 121/78 (92) 96 Intake and Output 08/13/20 08/14/20 19:00 07:00 Intake Total 1500 ml 2225 ml Output Total 1200 ml Balance 1500 ml 1025 ml Intake Oral 1500 ml 1400 ml IV Total 825 ml Output Urine Total 1200 ml # Voids 3 # Bowel Movements 2 2 Objective HEAD AND NECK: Showed no JVD. LUNGS: Coarse rhonchi. CARDIOVASCULAR: Shows regular S1 and S2 with no gallop. ABDOMEN: Soft. EXTREMITIES: No pitting edema. Jacques Hardwick MD Aug 14, 2020 14:57
[2020-08-14 16:00] VITALS: BP 118/97
--- NOTE | 2020-08-14 19:34 | Infectious Diseases Prog Note ---
Assessment/Plan Assessment/Plan ASSESSMENT AND PLAN: 1. covid-19 virus infection with pna, ? CAP, hypoxia, fevers - dexamethasone - day # 9 - s/p remdesivir - ceftriaxone and azithromycin - finish course - monitor hypoxia and labs - clinically improved, chest x-ray improved 3. No known drug allergies. 4. Social history is negative. 5. Family history is noncontributory. 6. MAR is noted. 7. Case is discussed with RN. 8. Case is communicated with care primary care team. Subjective Constitutional: Reports: other - sob, NR but less ; Denies: fever HEENT: Reports: congestion - less Respiratory: Reports: shortness of breath - less Cardiovascular: Denies: chest pain Gastrointestinal/Abdominal: Denies: nausea, vomiting, diarrhea Genitourinary: Reports: other - no estes Neurologic: Denies: headache Psychiatric: Denies: depression Skin: Denies: rash Hematologic: Denies: bleeding Musculoskeletal: Denies: pain Allergies: Coded Allergies: No Known Allergies (Unverified , 08/06/20) Objective Last 24 Hour Vital Signs Date Time Temp Pulse Resp B/P (MAP) Pulse Ox O2 Delivery O2 Flow Rate FiO2 08/14/20 19:17 97 Venturi Mask 6.0 35 08/14/20 16:00 41 08/14/20 16:00 98.8 69 21 118/97 (104) 95 08/14/20 12:00 61 08/14/20 12:00 96.7 93 18 115/79 (91) 98 08/14/20 09:00 Venturi Mask 6.0 08/14/20 08:00 72 08/14/20 08:00 98.1 91 21 112/62 (79) 98 08/14/20 07:00 98 Venturi Mask 6.0 35 08/14/20 04:00 58 08/14/20 04:00 97.9 38 22 108/76 (87) 98 08/14/20 00:00 63 08/14/20 00:00 98.4 78 20 122/72 (89) 96 08/13/20 21:00 Venturi Mask 6.0 08/13/20 20:00 48 08/13/20 20:00 97.9 76 20 118/71 (87) 94 08/13/20 19:33 95 Venturi Mask 6.0 35 Height (Feet): 5 Height (Inches): 11.00 Weight (Pounds): 255 General Appearance: no acute distress HEENT: normocephalic, atraumatic, anicteric Respiratory/Chest: crackles/rales, rhonchi - bilaterally Cardiovascular: normal rate, regular rhythm Abdomen: normal bowel sounds, soft, non tender, no organomegaly, non distended Genitourinary: other - no estes Extremities: no cyanosis Skin: no rash 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 Impression: Worsening bilateral infiltrates, over 2 days Chest x-ray - 08/13/20 - Procedure: XRAY Chest 1v Indication: Shortness of breath Technique: XRAY Chest 1v Comparison: 08/08/2020 Findings: Extensive bilateral infiltrates are again seen with slightly improved aeration of the right lung compared to the prior exam. No significant pleural effusion. No pneumothorax. Heart size and osseous structures are stable. Impression: Extensive bilateral infiltrates with slight improved aeration of the right lung compared to prior exam. Microbiology Date/Time Source Procedure Growth Status 08/06/20 11:01 Blood Blood Culture - Final NO GROWTH AFTER 5 DAYS Complete 08/06/20 11:00 Nasopharynx SARS-CoV-2 RdRp Gene Assay - Final Complete Labs Test 08/12/20 19:30 White Blood Count 10.3 K/UL (4.8-10.8) Red Blood Count 5.11 M/UL (4.70-6.10) Hemoglobin 15.9 G/DL (14.2-18.0) Hematocrit 42.5 % (42.0-52.0) Mean Corpuscular Volume 83 FL (80-99) Mean Corpuscular Hemoglobin 31.1 PG (27.0-31.0) Mean Corpuscular Hemoglobin Concent 37.4 G/DL (32.0-36.0) Red Cell Distribution Width 13.4 % (11.6-14.8) Platelet Count 505 K/UL (150-450) Mean Platelet Volume 7.2 FL (6.5-10.1) Neutrophils (%) (Auto) 80.2 % (45.0-75.0) Lymphocytes (%) (Auto) 15.2 % (20.0-45.0) Monocytes (%) (Auto) 3.5 % (1.0-10.0) Eosinophils (%) (Auto) 0.2 % (0.0-3.0) Basophils (%) (Auto) 0.8 % (0.0-2.0) Sodium Level 136 MMOL/L (136-145) Potassium Level 4.5 MMOL/L (3.5-5.1) Chloride Level 102 MMOL/L (98-107) Carbon Dioxide Level 27 MMOL/L (21-32) Anion Gap 7 mmol/L (5-15) Blood Urea Nitrogen 16 mg/dL (7-18) Creatinine 1.1 MG/DL (0.55-1.30) Estimat Glomerular Filtration Rate > 60 mL/min (>60) Glucose Level 138 MG/DL (74-106) Calcium Level 8.8 MG/DL (8.5-10.1) Total Bilirubin 0.5 MG/DL (0.2-1.0) Aspartate Amino Transf (AST/SGOT) 31 U/L (15-37) Alanine Aminotransferase (ALT/SGPT) 68 U/L (12-78) Alkaline Phosphatase 65 U/L (46-116) Total Protein 7.8 G/DL (6.4-8.2) Albumin 3.3 G/DL (3.4-5.0) Globulin 4.5 g/dL Albumin/Globulin Ratio 0.7 (1.0-2.7) Current Medications Medications (Trade) Dose Ordered Sig/Porter Route PRN Reason Start Time Stop Time Status Last Admin Dose Admin Acetaminophen (Tylenol) 650 mg Q4H PRN ORAL FEVER >100.5 08/08/20 11:52 09/07/20 11:51 08/10/20 08:51 Albuterol Sulfate (Proventil MDI) 2 puff Q4H PRN INH Shortness of Breath 08/14/20 06:30 11/12/20 06:29 Azithromycin (Zithromax) 500 mg DAILY ORAL 08/08/20 09:00 08/15/20 08:59 08/14/20 08:23 Dexamethasone Sodium Phosphate (Decadron 10mg/ ml Inj) 6 mg DAILY IV 08/07/20 09:00 08/16/20 09:01 08/14/20 08:22 Dextrose (Dextrose 50%) 25 ml Q30M PRN IV Hypoglycemia 08/06/20 16:45 11/04/20 16:44 Dextrose (Dextrose 50%) 50 ml Q30M PRN IV Hypoglycemia 08/06/20 16:45 11/04/20 16:44 Enoxaparin Sodium (Lovenox) 120 mg EVERY 12 HOURS SUBQ 08/13/20 21:00 11/04/20 20:59 08/14/20 08:27 Guaifenesin (Robitussin) 200 mg Q4H PRN ORAL For Cough 08/06/20 18:30 11/04/20 18:29 08/09/20 05:37 Pantoprazole (Protonix) 40 mg DAILY ORAL 08/07/20 09:00 09/06/20 08:59 08/14/20 08:23 Anam Arcos MD Aug 14, 2020 19:34
[2020-08-14 20:00] VITALS: BP 114/82
[2020-08-15] VITALS: BP 111/70
[2020-08-15 04:00] VITALS: BP 119/73
[2020-08-15 06:11] LABS: BASOPHILS % (AUTO) 0.9 % (0.0-2.0); EOSINOPHILS % (AUTO) 0.6 % (0.0-3.0); HEMATOCRIT 45.2 % (42.0-52.0); HEMOGLOBIN 15.3 G/DL (14.2-18.0); LYMPHOCYTES % (AUTO) 31.7 % (20.0-45.0); MEAN CORPUSCULAR VOLUME 93 FL (80-99); MONOCYTES % (AUTO) 4.9 % (1.0-10.0); NEUTROPHILS % (AUTO) 61.8 % (45.0-75.0); PLATELET COUNT 388 K/UL (150-450); RED BLOOD COUNT 4.87 M/UL (4.70-6.10); RED CELL DISTRIBUTION WIDTH 12.3 % (11.6-14.8); WHITE BLOOD COUNT 10.3 K/UL (4.8-10.8)
[2020-08-15 06:39] LABS: PHOSPHORUS 4.6 MG/DL (2.5-4.9)
[2020-08-15 06:50] LABS: ALANINE AMINOTRANSFERASE 180 U/L (12-78); ALBUMIN 3.2 G/DL (3.4-5.0); ALBUMIN/GLOBULIN RATIO 0.8 (1.0-2.7); ALKALINE PHOSPHATASE 61 U/L (46-116); ANION GAP 7 mmol/L (5-15); ASPARTATE AMINO TRANSFERASE 68 U/L (15-37); BILIRUBIN,TOTAL 0.8 MG/DL (0.2-1.0); BLOOD UREA NITROGEN 12 mg/dL (7-18); CALCIUM 8.5 MG/DL (8.5-10.1); CARBON DIOXIDE 28 MMOL/L (21-32); CHLORIDE 102 MMOL/L (98-107); CREATININE 0.8 MG/DL (0.55-1.30); POTASSIUM 3.9 MMOL/L (3.5-5.1); SODIUM 137 MMOL/L (136-145)
[2020-08-15 08:00] VITALS: BP 105/59
[2020-08-15] MEDS: dexAMETHasone 10mg/ml Inj IV SCH (08:27)
[2020-08-15] MEDS: Enoxaparin 120 mg inj SUBQ SCH ×2 (08:28→21:21)
--- NOTE | 2020-08-15 10:31 | General Progress Note ---
Subjective ROS Limited/Unobtainable: No Allergies: Coded Allergies: No Known Allergies (Unverified , 08/06/20) Objective Last 24 Hour Vital Signs Date Time Temp Pulse Resp B/P (MAP) Pulse Ox O2 Delivery O2 Flow Rate FiO2 08/15/20 09:00 Venturi Mask 6.0 08/15/20 08:00 97.7 70 20 105/59 (74) 95 08/15/20 08:00 75 08/15/20 04:00 97.8 44 20 119/73 (88) 95 08/15/20 04:00 35 08/15/20 00:00 97.7 52 21 111/70 (84) 96 08/15/20 00:00 42 08/14/20 21:00 Venturi Mask 6.0 08/14/20 20:00 97.9 59 20 114/82 (93) 96 08/14/20 20:00 61 08/14/20 19:17 97 Venturi Mask 6.0 35 08/14/20 16:00 41 08/14/20 16:00 98.8 69 21 118/97 (104) 95 08/14/20 12:00 61 08/14/20 12:00 96.7 93 18 115/79 (91) 98 Intake and Output 08/14/20 08/15/20 19:00 07:00 Intake Total 1600 ml 800 ml Output Total 1900 ml Balance -300 ml 800 ml Intake Oral 1600 ml 800 ml Output Urine Total 1900 ml # Voids 5 1 # Bowel Movements 2 1 Laboratory Tests 08/15/20 04:30: White Blood Count 10.3, Red Blood Count 4.87, Hemoglobin 15.3, Hematocrit 45.2, Mean Corpuscular Volume 93, Mean Corpuscular Hemoglobin 31.4H, Mean Corpuscular Hemoglobin Concent 33.8, Red Cell Distribution Width 12.3, Platelet Count 388, Mean Platelet Volume 5.7L, Neutrophils (%) (Auto) 61.8, Lymphocytes (%) (Auto) 31.7, Monocytes (%) (Auto) 4.9, Eosinophils (%) (Auto) 0.6, Basophils (%) (Auto) 0.9, Sodium Level 137, Potassium Level 3.9, Chloride Level 102, Carbon Dioxide Level 28, Anion Gap 7, Blood Urea Nitrogen 12, Creatinine 0.8, Estimat Glomerular Filtration Rate > 60, Glucose Level 89, Calcium Level 8.5, Phosphorus Level 4.6, Magnesium Level 2.0, Total Bilirubin 0.8, Aspartate Amino Transf (AST/SGOT) 68H, Alanine Aminotransferase (ALT/SGPT) 180H, Alkaline Phosphatase 61, Total Protein 7.2, Albumin 3.2L, Globulin 4.0, Albumin/Globulin Ratio 0.8L, Lipase 1100H Height (Feet): 5 Height (Inches): 11.00 Weight (Pounds): 255 General Appearance: alert EENT: normal ENT inspection Neck: supple Cardiovascular: normal rate Respiratory/Chest: decreased breath sounds Abdomen: non tender, soft, hypoactive bowel sounds Extremities: non-tender Assessment/Plan Problem List: (1) Elevated lipase ICD Codes: R74.8 - Abnormal levels of other serum enzymes SNOMED: 328531378 (2) COVID-19 ICD Codes: U07.1 - COVID-19 SNOMED: 356550337 (3) Hypoxia ICD Codes: R09.02 - Hypoxemia SNOMED: 349735912 (4) Pneumonia due to COVID-19 virus ICD Codes: U07.1 - COVID-19; J12.89 - Other viral pneumonia Assessment/Plan: repeat labs including amylase and lipase on diet abd us will Karl Gomez MD Aug 15, 2020 10:30
[2020-08-15 12:00] VITALS: BP 113/67
--- NOTE | 2020-08-15 15:18 | Pulmonology Progress Note ---
Subjective ROS Limited/Unobtainable: No Interval Events: None new Constitutional: Reports: other - sob, NR but less ; Denies: fever HEENT: Repors: no symptoms Respiratory: Reports: dry cough, shortness of breath Cardiovascular: Reports: no symptoms Gastrointestinal/Abdominal: Denies: nausea, vomiting, diarrhea Psychiatric: Denies: depression Skin: Denies: rash Musculoskeletal: Denies: pain Allergies: Coded Allergies: No Known Allergies (Unverified , 08/06/20) Objective Last 24 Hour Vital Signs Date Time Temp Pulse Resp B/P (MAP) Pulse Ox O2 Delivery O2 Flow Rate FiO2 08/15/20 12:00 97.4 61 20 113/67 (82) 95 08/15/20 12:00 56 08/15/20 09:00 Venturi Mask 6.0 08/15/20 08:00 97.7 70 20 105/59 (74) 95 08/15/20 08:00 75 08/15/20 04:00 97.8 44 20 119/73 (88) 95 08/15/20 04:00 35 08/15/20 00:00 97.7 52 21 111/70 (84) 96 08/15/20 00:00 42 08/14/20 21:00 Venturi Mask 6.0 08/14/20 20:00 97.9 59 20 114/82 (93) 96 08/14/20 20:00 61 08/14/20 19:17 97 Venturi Mask 6.0 35 08/14/20 16:00 41 08/14/20 16:00 98.8 69 21 118/97 (104) 95 Intake and Output 08/14/20 08/15/20 19:00 07:00 Intake Total 1600 ml 800 ml Output Total 1900 ml Balance -300 ml 800 ml Intake Oral 1600 ml 800 ml Output Urine Total 1900 ml # Voids 5 1 # Bowel Movements 2 1 General Appearance: WD/WN, no acute distress HEENT: normocephalic, atraumatic Respiratory: chest wall non-tender, crackles/rales Cardiovascular: normal rate, regular rhythm Abdomen: soft, non tender Laboratory Tests 08/15/20 04:30: White Blood Count 10.3, Red Blood Count 4.87, Hemoglobin 15.3, Hematocrit 45.2, Mean Corpuscular Volume 93, Mean Corpuscular Hemoglobin 31.4H, Mean Corpuscular Hemoglobin Concent 33.8, Red Cell Distribution Width 12.3, Platelet Count 388, Mean Platelet Volume 5.7L, Neutrophils (%) (Auto) 61.8, Lymphocytes (%) (Auto) 31.7, Monocytes (%) (Auto) 4.9, Eosinophils (%) (Auto) 0.6, Basophils (%) (Auto) 0.9, Sodium Level 137, Potassium Level 3.9, Chloride Level 102, Carbon Dioxide Level 28, Anion Gap 7, Blood Urea Nitrogen 12, Creatinine 0.8, Estimat Glomerular Filtration Rate > 60, Glucose Level 89, Calcium Level 8.5, Phosphorus Level 4.6, Magnesium Level 2.0, Total Bilirubin 0.8, Aspartate Amino Transf (AST/SGOT) 68H, Alanine Aminotransferase (ALT/SGPT) 180H, Alkaline Phosphatase 61, Total Protein 7.2, Albumin 3.2L, Globulin 4.0, Albumin/Globulin Ratio 0.8L, Lipase 1100H Current Medications Medications (Trade) Dose Ordered Sig/Porter Route PRN Reason Start Time Stop Time Status Last Admin Dose Admin Acetaminophen (Tylenol) 650 mg Q4H PRN ORAL FEVER >100.5 08/08/20 11:52 09/07/20 11:51 08/10/20 08:51 Albuterol Sulfate (Proventil MDI) 2 puff Q4H PRN INH Shortness of Breath 08/14/20 06:30 11/12/20 06:29 Dexamethasone Sodium Phosphate (Decadron 10mg/ ml Inj) 6 mg DAILY IV 08/07/20 09:00 08/16/20 09:01 08/15/20 08:27 Dextrose (Dextrose 50%) 25 ml Q30M PRN IV Hypoglycemia 08/06/20 16:45 11/04/20 16:44 Dextrose (Dextrose 50%) 50 ml Q30M PRN IV Hypoglycemia 08/06/20 16:45 11/04/20 16:44 Enoxaparin Sodium (Lovenox) 120 mg EVERY 12 HOURS SUBQ 08/13/20 21:00 11/04/20 20:59 08/15/20 08:28 Guaifenesin (Robitussin) 200 mg Q4H PRN ORAL For Cough 08/06/20 18:30 3/22/21 18:29 08/09/20 05:37 Pantoprazole (Protonix) 40 mg DAILY ORAL 08/07/20 09:00 09/06/20 08:59 08/15/20 08:27 Assessment/Plan Assessment/Plan 1. COVID-19 pneumonia with fever - Now on 6 L via Ventimask - on decadron - on broad-spectrum Abx - on remdesivir 2. Pancreatitis. 3. Hypoxemia. - Cont supplemental oxygen - keep saO2 >92%; saturations are better than previous. 4. Hyperglycemia., likely secondary to steroids - monitor 5. Elevated inflammatory markers. - DVT ppx - on lovenox 6. Cardiac arrhythmias (Patient was seen earlier today. Signature timestamp does not reflect patient encounter time) Rei Dobbs MD, MD Aug 15, 2020 15:17
[2020-08-15 16:00] VITALS: BP 109/62
--- NOTE | 2020-08-15 17:19 | General Progress Note ---
Subjective Date patient seen: Aug 15, 2020 Allergies: Coded Allergies: No Known Allergies (Unverified , 08/06/20) Subjective Chart reviewed, patient admitted for Covid pneumonia. On telemetry having episode of bradycardia down to high 30s low 40s while sleeping. Asymptomatic. Denies any chest pain, palpitations, shortness of breath, syncope or near syncope. Reviewed with cardiology. Patient still on 6 L of oxygen. Feels better every day. Review of systems: Constitutional: Denies: chills, diaphoresis, fever, malaise, weakness, HEENT: Denies: eye pain, blurred vision, double vision, ear pain, nose pain, throat pain, Cardiovascular: Denies: chest pain, edema, lightheadedness, palpitations Respiratory: See HPI Gastrointestinal/Abdominal: Denies: abdominal pain, black stools, blood in stool, constipation, diarrhea, nausea, poor fluid intake vomiting, other Genitourinary: Denies: burning, discharge, frequency, Neurologic/Psychiatric: Denies: headache, numbness, paresthesia, new weakness, other Endocrine: Denies: excessive sweating, flushing, intolerance to cold, MSK: denies joint pains, swelling, stiffness Hematologic/Lymphatic: Denies: anemia, easy bleeding, easy bruising, Psych: no anxiety, depression, SI or HI Objective Last 24 Hour Vital Signs Date Time Temp Pulse Resp B/P (MAP) Pulse Ox O2 Delivery O2 Flow Rate FiO2 08/15/20 12:00 97.4 61 20 113/67 (82) 95 08/15/20 12:00 56 08/15/20 09:00 Venturi Mask 6.0 08/15/20 08:00 97.7 70 20 105/59 (74) 95 08/15/20 08:00 75 08/15/20 07:00 95 Venturi Mask 6.0 35 08/15/20 04:00 97.8 44 20 119/73 (88) 95 08/15/20 04:00 35 08/15/20 00:00 97.7 52 21 111/70 (84) 96 08/15/20 00:00 42 08/14/20 21:00 Venturi Mask 6.0 08/14/20 20:00 97.9 59 20 114/82 (93) 96 08/14/20 20:00 61 08/14/20 19:17 97 Venturi Mask 6.0 35 Intake and Output 08/14/20 08/15/20 19:00 07:00 Intake Total 1600 ml 800 ml Output Total 1900 ml Balance -300 ml 800 ml Intake Oral 1600 ml 800 ml Output Urine Total 1900 ml # Voids 5 1 # Bowel Movements 2 1 Laboratory Tests 08/15/20 04:30: White Blood Count 10.3, Red Blood Count 4.87, Hemoglobin 15.3, Hematocrit 45.2, Mean Corpuscular Volume 93, Mean Corpuscular Hemoglobin 31.4H, Mean Corpuscular Hemoglobin Concent 33.8, Red Cell Distribution Width 12.3, Platelet Count 388, Mean Platelet Volume 5.7L, Neutrophils (%) (Auto) 61.8, Lymphocytes (%) (Auto) 31.7, Monocytes (%) (Auto) 4.9, Eosinophils (%) (Auto) 0.6, Basophils (%) (Auto) 0.9, Sodium Level 137, Potassium Level 3.9, Chloride Level 102, Carbon Dioxide Level 28, Anion Gap 7, Blood Urea Nitrogen 12, Creatinine 0.8, Estimat Glomerular Filtration Rate > 60, Glucose Level 89, Calcium Level 8.5, Phosphorus Level 4.6, Magnesium Level 2.0, Total Bilirubin 0.8, Aspartate Amino Transf (AST/SGOT) 68H, Alanine Aminotransferase (ALT/SGPT) 180H, Alkaline Phosphatase 61, Total Protein 7.2, Albumin 3.2L, Globulin 4.0, Albumin/Globulin Ratio 0.8L, Lipase 1100H Height (Feet): 5 Height (Inches): 11.00 Weight (Pounds): 255 Objective General: WDWN male in NAD, A&O x 4. ON venturi mask HEENT: Normocephalic cephalic atraumatic, pupils equal round reactive to light and accommodation, nares patent and no symmetrical, no tonsillar exudates, mucous membranes moist CV: Regular rate regular rhythm, no murmurs, rubs, or gallops Pulm: Lungs clear to auscultation bilaterally. No wheezes, rhonchi, or rales GI: Soft, nontender, nondistended, bowel sounds present Neuro: CN 2-12 intact bilaterally, no focal signs. Ext: No lower extremity edema bilaterally Skin: no rashes lesions or ulcers Msk: Joints symmetrical in upper extremity and lower extremity bilaterally, no joint swelling. Lymph: No lymphadenopathy in upper extremity and lower extremity Assessment/Plan Assessment/Plan: #COVID-19 Pneumonia #Acute hypoxemic respiratory failure - gradual improvement today - currently on supplemental oxygen - elevated inflammatory markers, ferritin - dexamethasone, remdesivir, per ID recs - antibiotics per ID recs - Consult pulmonology Dr. Salamanca - Consult ID Dr. Gann - Advance care planning note documented - PT mobility evaluation #pancreatitis > Asymptomatic > COVID related? - unclear etiology - GI consult: Dr. Kruger - trend lipase - IV fluids - abdominal imaging per GI - diet per GI #Sinus pause #Bradycardia Asymptomatic - TTE - noted - TSH WNL - Consult cardiology Dr. Hardwick - > no further interventions FENPPX DVTPPX: lovenox Fluids: none Diet: per GI Code status: Full Dispo: home with home health Reason for Continued Hospitalization: pancreatitis, acute resp failure Fluids: IVF Diet: regular DVT ppx: heparin Code: FULL MIPS ([employer]-based Incentive Payment System) Applicable CPT: 24739, 68125 CHECK A LL THAT ARE MET: [] Measure #5 (CHF): All ages. Prescribe THANG/ARB upon discharge for patients with left ventricular systolic dysfunction. If not, the reason is clearly documented in the medical chart [] Measure #8 (CHF): All ages. Prescribe a beta valeri upon discharge for patients with left ventricular systolic dysfunction. If not, the reason is clearly documented in the medical chart. [x] Measure #47: Advance care plan or surrogate decision maker documented in the medical record. [x] Measure #130 The provider has documented, updated, or reviewed the patients current medication list and has documented it in the patients note. [] Measure #374 (All): Send report to referring provider. [] Measure #407(Sepsis due to MSSA bacteremia): Age 18+ Patient treated with a beta-lactam antibiotic (Nafcillin, Oxacillin or Cefazolin) as definitive therapy. MEDICAL COMPLEXITYHigh complexity medical decision making (need 2/3 categories)Problem - need 4 points [x]Acute/new problem with new plan for workup (4 points, 1 max) [] Acute/new problem without additional workup (3 points, 1 max) [x] Unstable chronic problem actively being managed (2 point each, 2 max) [x] Stable chronic problem actively being managed (1 point each, 2 max) [] Self-limited/transient process (constipation, muscle ache, etc) (1 point each, 2 max) Data - need 4 points [x] Reviewed labs/imaging studies (1 points, 2 max) [x] Independent review of imaging (EKG, xrays, etc) (2 points, 2 max) [x] Discussed case with consult/other MD/RN (2 points, 2 max) High Risk - qualify if have one of the following: [x] Severe exacerbation of acute problem, acute mental status change, IV narcotics, monitoring drug levels (vancomycin, INR, tacrolimus etc) I spent 36 minutes on this patient's case, and 22 mins was dedicated to counseling and/or care coordination. Discussed with GI, ID, Pulm, RN I spent an additional 33 minutes reviewing medical records including prior hospitalization notes, clinic notes, consultation notes, prior labs, and prior i maging. Time of note may not reflect time of encounter Jordy Alba D.O. Aug 15, 2020 17:19
--- NOTE | 2020-08-15 19:43 | Cardiac Electrophysiology PN ---
Assessment/Plan Assessment/Plan 1. Sinus Bradycardia with HR down to 30s. Not hypothyroid. Only 34 year old 12 lead ECG showed HR 41 off any TRINH valeri Watch the patient on telemetry. Echocardiogram EF 65%. Hopefully avoid pacer 2. COVID pneumonia with elevated inflammatory markers, on VM 6 L. On Remdesevir, Dexa and iv Abx 3. Elevated ferritin of more than 1000, LDH of more than 500. 4. Pancreatitis. Lipase of more than 500. MARICARMEN RN Subjective Subjective On 6 liter VM. Alert in NAD. HR down to 30s at night. 12 lead ECG SB 41 In Covid isolation. EF 65% Objective Last 24 Hour Vital Signs Date Time Temp Pulse Resp B/P (MAP) Pulse Ox O2 Delivery O2 Flow Rate FiO2 08/15/20 16:00 40 08/15/20 16:00 97.9 43 20 109/62 (78) 94 08/15/20 12:00 97.4 61 20 113/67 (82) 95 08/15/20 12:00 56 08/15/20 09:00 Venturi Mask 6.0 08/15/20 08:00 97.7 70 20 105/59 (74) 95 08/15/20 08:00 75 08/15/20 07:00 95 Venturi Mask 6.0 35 08/15/20 04:00 97.8 44 20 119/73 (88) 95 08/15/20 04:00 35 08/15/20 00:00 97.7 52 21 111/70 (84) 96 08/15/20 00:00 42 08/14/20 21:00 Venturi Mask 6.0 08/14/20 20:00 97.9 59 20 114/82 (93) 96 08/14/20 20:00 61 Intake and Output 08/14/20 08/15/20 19:00 07:00 Intake Total 1600 ml 800 ml Output Total 1900 ml Balance -300 ml 800 ml Intake Oral 1600 ml 800 ml Output Urine Total 1900 ml # Voids 5 1 # Bowel Movements 2 1 Laboratory Tests Test 08/15/20 04:30 White Blood Count 10.3 K/UL (4.8-10.8) Red Blood Count 4.87 M/UL (4.70-6.10) Hemoglobin 15.3 G/DL (14.2-18.0) Hematocrit 45.2 % (42.0-52.0) Mean Corpuscular Volume 93 FL (80-99) Mean Corpuscular Hemoglobin 31.4 PG (27.0-31.0) H Mean Corpuscular Hemoglobin Concent 33.8 G/DL (32.0-36.0) Red Cell Distribution Width 12.3 % (11.6-14.8) Platelet Count 388 K/UL (150-450) Mean Platelet Volume 5.7 FL (6.5-10.1) L Neutrophils (%) (Auto) 61.8 % (45.0-75.0) Lymphocytes (%) (Auto) 31.7 % (20.0-45.0) Monocytes (%) (Auto) 4.9 % (1.0-10.0) Eosinophils (%) (Auto) 0.6 % (0.0-3.0) Basophils (%) (Auto) 0.9 % (0.0-2.0) Sodium Level 137 MMOL/L (136-145) Potassium Level 3.9 MMOL/L (3.5-5.1) Chloride Level 102 MMOL/L (98-107) Carbon Dioxide Level 28 MMOL/L (21-32) Anion Gap 7 mmol/L (5-15) Blood Urea Nitrogen 12 mg/dL (7-18) Creatinine 0.8 MG/DL (0.55-1.30) Estimat Glomerular Filtration Rate > 60 mL/min (>60) Glucose Level 89 MG/DL (74-106) Calcium Level 8.5 MG/DL (8.5-10.1) Phosphorus Level 4.6 MG/DL (2.5-4.9) Magnesium Level 2.0 MG/DL (1.8-2.4) Total Bilirubin 0.8 MG/DL (0.2-1.0) Aspartate Amino Transf (AST/SGOT) 68 U/L (15-37) H Alanine Aminotransferase (ALT/SGPT) 180 U/L (12-78) H Alkaline Phosphatase 61 U/L (46-116) Total Protein 7.2 G/DL (6.4-8.2) Albumin 3.2 G/DL (3.4-5.0) L Globulin 4.0 g/dL Albumin/Globulin Ratio 0.8 (1.0-2.7) L Lipase 1100 U/L (73-393) H Objective HEAD AND NECK: Showed no JVD. LUNGS: Coarse rhonchi. CARDIOVASCULAR: Shows regular S1 and S2 with no gallop. ABDOMEN: Soft. EXTREMITIES: No pitting edema. Jacques Hardwick MD Aug 15, 2020 19:43
[2020-08-15 20:00] VITALS: BP 112/69
[2020-08-16] VITALS: BP 115/55
[2020-08-16 04:00] VITALS: BP 110/66
[2020-08-16 05:06] LABS: ALANINE AMINOTRANSFERASE 296 U/L (12-78); ALBUMIN 3.2 G/DL (3.4-5.0); ALBUMIN/GLOBULIN RATIO 0.8 (1.0-2.7); ALKALINE PHOSPHATASE 64 U/L (46-116); AMYLASE 155 U/L (25-115); ANION GAP 5 mmol/L (5-15); ASPARTATE AMINO TRANSFERASE 80 U/L (15-37); BILIRUBIN,TOTAL 0.7 MG/DL (0.2-1.0); BLOOD UREA NITROGEN 16 mg/dL (7-18); CALCIUM 8.8 MG/DL (8.5-10.1); CARBON DIOXIDE 28 MMOL/L (21-32); CHLORIDE 103 MMOL/L (98-107); CHOLESTEROL 114 MG/DL (< 200); CREATININE 0.8 MG/DL (0.55-1.30); HDL CHOLESTEROL 24 MG/DL (40-60); POTASSIUM 4.2 MMOL/L (3.5-5.1); SODIUM 136 MMOL/L (136-145); TRIGLYCERIDES 146 MG/DL (30-150)
[2020-08-16 07:11] LABS: BASOPHILS % (AUTO) 0.6 % (0.0-2.0); EOSINOPHILS % (AUTO) 0.5 % (0.0-3.0); HEMATOCRIT 46.5 % (42.0-52.0); HEMOGLOBIN 15.5 G/DL (14.2-18.0); LYMPHOCYTES % (AUTO) 19.7 % (20.0-45.0); MEAN CORPUSCULAR VOLUME 95 FL (80-99); MONOCYTES % (AUTO) 4.4 % (1.0-10.0); NEUTROPHILS % (AUTO) 74.7 % (45.0-75.0); PLATELET COUNT 338 K/UL (150-450); RED CELL DISTRIBUTION WIDTH 12.6 % (11.6-14.8); WHITE BLOOD COUNT 12.7 K/UL (4.8-10.8)
[2020-08-16 08:00] VITALS: BP 105/50
[2020-08-16] MEDS: dexAMETHasone 10mg/ml Inj IV SCH (08:18)
[2020-08-16] MEDS: Enoxaparin 120 mg inj SUBQ SCH ×2 (08:19→20:42)
--- NOTE | 2020-08-16 08:37 | Diagnostic Imaging Report ---
EXAM: US Abdomen Complete CLINICAL HISTORY: ABD PAIN TECHNIQUE: Real-time ultrasound of the abdomen with image documentation. COMPARISON: No relevant prior studies available. FINDINGS: Liver: There is moderate to severe fatty infiltration of the liver. The liver is normal in size. No focal lesions are identified. No intrahepatic bile duct dilation. Gallbladder: Unremarkable. No gallstones. Common bile duct: Unremarkable as visualized. No stones. No dilation. Pancreas: Unremarkable as visualized. Kidneys: Unremarkable. No stones. No solid mass. No hydronephrosis. Spleen: Unremarkable. No splenomegaly. Aorta: Unremarkable. No aneurysm. Inferior vena cava: Unremarkable. IMPRESSION: There is moderate to severe fatty infiltration of the liver. The liver is normal in size. No focal lesions are identified.
--- NOTE | 2020-08-16 09:48 | Pulmonology Progress Note ---
Subjective ROS Limited/Unobtainable: No Interval Events: None new HEENT: Repors: no symptoms Respiratory: Reports: dry cough, shortness of breath Cardiovascular: Reports: no symptoms Gastrointestinal/Abdominal: Denies: nausea, vomiting, diarrhea Psychiatric: Denies: depression Skin: Denies: rash Musculoskeletal: Denies: pain Allergies: Coded Allergies: No Known Allergies (Unverified , 08/06/20) Objective Last 24 Hour Vital Signs Date Time Temp Pulse Resp B/P (MAP) Pulse Ox O2 Delivery O2 Flow Rate FiO2 08/16/20 08:00 98.2 48 16 105/50 (68) 98 08/16/20 04:00 44 08/16/20 04:00 97.1 56 17 110/66 (81) 94 08/16/20 00:00 97.5 49 18 115/55 (75) 94 08/16/20 00:00 39 08/15/20 21:00 Nasal Cannula 4.0 08/15/20 20:00 98.6 59 22 112/69 (83) 100 08/15/20 20:00 54 08/15/20 19:53 95 Venturi Mask 6.0 35 08/15/20 16:00 40 08/15/20 16:00 97.9 43 20 109/62 (78) 94 08/15/20 12:00 97.4 61 20 113/67 (82) 95 08/15/20 12:00 56 Intake and Output 08/15/20 08/16/20 19:00 07:00 Intake Total 500 ml Balance 500 ml Intake Oral 500 ml # Voids 2 # Bowel Movements 1 1 Objective 08/16 now on 3L NC saturating at 98% 08/14 remains on 6L Venturi mask, saturating well; pt reports feeling better 08/13 remains on 6L Venturi mask 08/12 now on 6L Venturi mask 08/09 no change 08/08 pt remains to be on NRB 15L 08/07 now on NRB 15L saturating at 93-94% General Appearance: WD/WN, no acute distress HEENT: normocephalic, atraumatic Respiratory: chest wall non-tender, crackles/rales Cardiovascular: normal rate, regular rhythm Abdomen: soft, non tender Laboratory Tests 08/16/20 04:00: Sodium Level 136, Potassium Level 4.2, Chloride Level 103, Carbon Dioxide Level 28, Anion Gap 5, Blood Urea Nitrogen 16, Creatinine 0.8, Estimat Glomerular Filtration Rate > 60, Glucose Level 91, Calcium Level 8.8, Total Bilirubin 0.7, Aspartate Amino Transf (AST/SGOT) 80H, Alanine Aminotransferase (ALT/SGPT) 296H, Alkaline Phosphatase 64, Total Protein 7.1, Albumin 3.2L, Globulin 3.9, Albumin/Globulin Ratio 0.8L, Triglycerides Level 146, Cholesterol Level 114, LDL Cholesterol 71, HDL Cholesterol 24L, Cholesterol/HDL Ratio 4.8H, Amylase Level 155H, Lipase 950H 08/16/20 05:54: White Blood Count 12.7H, Red Blood Count 4.90, Hemoglobin 15.5, Hematocrit 46.5, Mean Corpuscular Volume 95, Mean Corpuscular Hemoglobin 31.5H, Mean Corpuscular Hemoglobin Concent 33.2, Red Cell Distribution Width 12.6, Platelet Count 338, Mean Platelet Volume 6.2L, Neutrophils (%) (Auto) 74.7, Lymphocytes (%) (Auto) 19.7L, Monocytes (%) (Auto) 4.4, Eosinophils (%) (Auto) 0.5, Basophils (%) (Auto) 0.6 Current Medications Medications (Trade) Dose Ordered Sig/Porter Route PRN Reason Start Time Stop Time Status Last Admin Dose Admin Acetaminophen (Tylenol) 650 mg Q4H PRN ORAL FEVER >100.5 08/08/20 11:52 09/07/20 11:51 08/10/20 08:51 Albuterol Sulfate (Proventil MDI) 2 puff Q4H PRN INH Shortness of Breath 08/14/20 06:30 11/12/20 06:29 Dextrose (Dextrose 50%) 25 ml Q30M PRN IV Hypoglycemia 08/06/20 16:45 11/04/20 16:44 Dextrose (Dextrose 50%) 50 ml Q30M PRN IV Hypoglycemia 08/06/20 16:45 11/04/20 16:44 Enoxaparin Sodium (Lovenox) 120 mg EVERY 12 HOURS SUBQ 08/13/20 21:00 11/04/20 20:59 08/16/20 08:19 Guaifenesin (Robitussin) 200 mg Q4H PRN ORAL For Cough 08/06/20 18:30 11/04/20 18:29 08/09/20 05:37 Pantoprazole (Protonix) 40 mg DAILY ORAL 08/07/20 09:00 09/06/20 08:59 08/16/20 08:18 Assessment/Plan Assessment/Plan 1. COVID-19 pneumonia with fever - now on 3L NC saturating at 98%; wean off as tolerated - now completed dexamethasone (08/07-08/16) - s/p broad-spectrum Abx - s/p remdesivir - CXR 08/08 shows worsening b/l infiltrates - CXR 08/13 slight improvement 2. Pancreatitis.; elevated LFTs - trend lipase - Abd US 08/15 shows fatty liver disease 3. Hypoxemia. - Cont supplemental oxygen - keep saO2 >92%; titrate down as tolerated 4. Hyperglycemia., likely secondary to steroids - monitor 5. Elevated inflammatory markers. - DVT ppx - on lovenox 6. Bradycardia; asymptomatic - 2D echo LVEF 65% - Thyroid function test : wnl - management for cardio -> no further intervention per cardio We will follow carefully. The care for this patient was discussed with my supervising physician Time spent for this case was approximately 31 minutes The patient was seen and examined at bedside and all new and available data was reviewed in the patients chart. I agree with the above findings, impression, and plan. (Patient was seen earlier today. Signature timestamp does not reflect patient encounter time) Austyn Lopez MD Aug 16, 2020 09:48 Rei Salamanca MD Aug 16, 2020 15:01
[2020-08-16 12:00] VITALS: BP 113/58
--- NOTE | 2020-08-16 14:25 | Cardiac Electrophysiology PN ---
Assessment/Plan Assessment/Plan 1. Sinus Bradycardia with HR down to 30s. Not hypothyroid. Only 34 year old. Likely due to Covid 12 lead ECG showed HR 41 off any TRINH valeri Watch the patient on telemetry. Echocardiogram EF 65%. Hopefully avoid pacer 2. COVID pneumonia with elevated inflammatory markers, on VM 6 L. On Remdesevir, Dexa and iv Abx 3. Elevated ferritin of more than 1000, LDH of more than 500. 4. Pancreatitis. Lipase of more than 500. MARICARMEN RN Subjective Subjective On 6 liter VM. Alert in NAD. HR tarsha down to 33s last night again and HR 35 during day with 3 second pause at 5.30 am. 12 lead ECG SB 41 In Covid isolation. EF 65% Objective Last 24 Hour Vital Signs Date Time Temp Pulse Resp B/P (MAP) Pulse Ox O2 Delivery O2 Flow Rate FiO2 08/16/20 12:00 98.4 68 16 113/58 (76) 89 08/16/20 09:00 Nasal Cannula 3.0 08/16/20 08:00 75 08/16/20 08:00 98.2 48 16 105/50 (68) 98 08/16/20 04:00 44 08/16/20 04:00 97.1 56 17 110/66 (81) 94 08/16/20 00:00 97.5 49 18 115/55 (75) 94 08/16/20 00:00 39 08/15/20 21:00 Nasal Cannula 4.0 08/15/20 20:00 98.6 59 22 112/69 (83) 100 08/15/20 20:00 54 08/15/20 19:53 95 Venturi Mask 6.0 35 08/15/20 16:00 40 08/15/20 16:00 97.9 43 20 109/62 (78) 94 Intake and Output 08/15/20 08/16/20 19:00 07:00 Intake Total 500 ml Balance 500 ml Intake Oral 500 ml # Voids 2 # Bowel Movements 1 1 Laboratory Tests Test 08/16/20 04:00 08/16/20 05:54 Sodium Level 136 MMOL/L (136-145) Potassium Level 4.2 MMOL/L (3.5-5.1) Chloride Level 103 MMOL/L (98-107) Carbon Dioxide Level 28 MMOL/L (21-32) Anion Gap 5 mmol/L (5-15) Blood Urea Nitrogen 16 mg/dL (7-18) Creatinine 0.8 MG/DL (0.55-1.30) Estimat Glomerular Filtration Rate > 60 mL/min (>60) Glucose Level 91 MG/DL (74-106) Calcium Level 8.8 MG/DL (8.5-10.1) Total Bilirubin 0.7 MG/DL (0.2-1.0) Aspartate Amino Transf (AST/SGOT) 80 U/L (15-37) H Alanine Aminotransferase (ALT/SGPT) 296 U/L (12-78) H Alkaline Phosphatase 64 U/L (46-116) Total Protein 7.1 G/DL (6.4-8.2) Albumin 3.2 G/DL (3.4-5.0) L Globulin 3.9 g/dL Albumin/Globulin Ratio 0.8 (1.0-2.7) L Triglycerides Level 146 MG/DL (30-150) Cholesterol Level 114 MG/DL (< 200) LDL Cholesterol 71 mg/dL (<100) HDL Cholesterol 24 MG/DL (40-60) L Cholesterol/HDL Ratio 4.8 (3.3-4.4) H Amylase Level 155 U/L (25-115) H Lipase 950 U/L (73-393) H White Blood Count 12.7 K/UL (4.8-10.8) H Red Blood Count 4.90 M/UL (4.70-6.10) Hemoglobin 15.5 G/DL (14.2-18.0) Hematocrit 46.5 % (42.0-52.0) Mean Corpuscular Volume 95 FL (80-99) Mean Corpuscular Hemoglobin 31.5 PG (27.0-31.0) H Mean Corpuscular Hemoglobin Concent 33.2 G/DL (32.0-36.0) Red Cell Distribution Width 12.6 % (11.6-14.8) Platelet Count 338 K/UL (150-450) Mean Platelet Volume 6.2 FL (6.5-10.1) L Neutrophils (%) (Auto) 74.7 % (45.0-75.0) Lymphocytes (%) (Auto) 19.7 % (20.0-45.0) L Monocytes (%) (Auto) 4.4 % (1.0-10.0) Eosinophils (%) (Auto) 0.5 % (0.0-3.0) Basophils (%) (Auto) 0.6 % (0.0-2.0) Objective HEAD AND NECK: Showed no JVD. LUNGS: Coarse rhonchi. CARDIOVASCULAR: Shows regular S1 and S2 with no gallop. ABDOMEN: Soft. EXTREMITIES: No pitting edema. Jacques Hardwick MD Aug 16, 2020 14:25
[2020-08-16 16:00] VITALS: BP 108/61
--- NOTE | 2020-08-16 18:13 | General Progress Note ---
Subjective Date patient seen: Aug 16, 2020 Allergies: Coded Allergies: No Known Allergies (Unverified , 08/06/20) Subjective Chart reviewed, patient admitted for Covid pneumonia. No acute events overnight per nursing. Patient with about a 3 sec pause overnight. Asymptomatic. Cardiology aware. NO chest pain, palpitations, SOB, syncope or near syncope. Review of systems: Constitutional: Denies: chills, diaphoresis, fever, malaise, weakness, HEENT: Denies: eye pain, blurred vision, double vision, ear pain, nose pain, throat pain, Cardiovascular: Denies: chest pain, edema, lightheadedness, palpitations Respiratory: See HPI Gastrointestinal/Abdominal: Denies: abdominal pain, black stools, blood in stool, constipation, diarrhea, nausea, poor fluid intake vomiting, other Genitourinary: Denies: burning, discharge, frequency, Neurologic/Psychiatric: Denies: headache, numbness, paresthesia, new weakness, other Endocrine: Denies: excessive sweating, flushing, intolerance to cold, MSK: denies joint pains, swelling, stiffness Hematologic/Lymphatic: Denies: anemia, easy bleeding, easy bruising, Psych: no anxiety, depression, SI or HI Objective Last 24 Hour Vital Signs Date Time Temp Pulse Resp B/P (MAP) Pulse Ox O2 Delivery O2 Flow Rate FiO2 08/16/20 16:00 98.7 59 16 108/61 (77) 96 08/16/20 16:00 72 08/16/20 12:00 80 08/16/20 12:00 98.4 68 16 113/58 (76) 89 08/16/20 09:00 Nasal Cannula 3.0 08/16/20 08:00 75 08/16/20 08:00 98.2 48 16 105/50 (68) 98 08/16/20 04:00 44 08/16/20 04:00 97.1 56 17 110/66 (81) 94 08/16/20 00:00 97.5 49 18 115/55 (75) 94 08/16/20 00:00 39 08/15/20 21:00 Nasal Cannula 4.0 08/15/20 20:00 98.6 59 22 112/69 (83) 100 08/15/20 20:00 54 08/15/20 19:53 95 Venturi Mask 6.0 35 Intake and Output 12/31/20 1/1/21 19:00 07:00 Intake Total 500 ml Balance 500 ml Intake Oral 500 ml # Voids 2 # Bowel Movements 1 1 Laboratory Tests 08/16/20 04:00: Sodium Level 136, Potassium Level 4.2, Chloride Level 103, Carbon Dioxide Level 28, Anion Gap 5, Blood Urea Nitrogen 16, Creatinine 0.8, Estimat Glomerular Filtration Rate > 60, Glucose Level 91, Calcium Level 8.8, Total Bilirubin 0.7, Aspartate Amino Transf (AST/SGOT) 80H, Alanine Aminotransferase (ALT/SGPT) 296H, Alkaline Phosphatase 64, Total Protein 7.1, Albumin 3.2L, Globulin 3.9, Albumin/Globulin Ratio 0.8L, Triglycerides Level 146, Cholesterol Level 114, LDL Cholesterol 71, HDL Cholesterol 24L, Cholesterol/HDL Ratio 4.8H, Amylase Level 155H, Lipase 950H 08/16/20 05:54: White Blood Count 12.7H, Red Blood Count 4.90, Hemoglobin 15.5, Hematocrit 46.5, Mean Corpuscular Volume 95, Mean Corpuscular Hemoglobin 31.5H, Mean Corpuscular Hemoglobin Concent 33.2, Red Cell Distribution Width 12.6, Platelet Count 338, Mean Platelet Volume 6.2L, Neutrophils (%) (Auto) 74.7, Lymphocytes (%) (Auto) 19.7L, Monocytes (%) (Auto) 4.4, Eosinophils (%) (Auto) 0.5, Basophils (%) (Auto) 0.6 Height (Feet): 5 Height (Inches): 11.00 Weight (Pounds): 255 Objective General: WDWN male in NAD, A&O x 4. ON nasal cannula now HEENT: Normocephalic cephalic atraumatic, pupils equal round reactive to light and accommodation, nares patent and no symmetrical, no tonsillar exudates, mucous membranes moist CV: Regular rate regular rhythm, no murmurs, rubs, or gallops Pulm: Lungs clear to auscultation bilaterally. No wheezes, rhonchi, or rales GI: Soft, nontender, nondistended, bowel sounds present Neuro: CN 2-12 intact bilaterally, no focal signs. Ext: No lower extremity edema bilaterally Skin: no rashes lesions or ulcers Msk: Joints symmetrical in upper extremity and lower extremity bilaterally, no joint swelling. Lymph: No lymphadenopathy in upper extremity and lower extremity Assessment/Plan Assessment/Plan: #COVID-19 Pneumonia #Acute hypoxemic respiratory failure - gradual improvement today - currently on supplemental oxygen - elevated inflammatory markers, ferritin - dexamethasone, remdesivir, per ID recs - antibiotics per ID recs - Consult pulmonology Dr. Salamanca - Consult ID Dr. Gann - Advance care planning note documented - PT mobility evaluation #pancreatitis > Asymptomatic > COVID related? - unclear etiology - GI consult: Dr. Kruger - trend lipase : downtrending - IV fluids - abdominal imaging per GI - abdominal ultrasound showing fatty liver - diet per GI #Sinus pause #Bradycardia Asymptomatic - TTE - noted - TSH WNL - Consult cardiology Dr. Hardwick - > no further interventions FENPPX DVTPPX: lovenox Fluids: none Diet: per GI Code status: Full Dispo: home with home health Reason for Continued Hospitalization: pancreatitis, acute resp failure Fluids: IVF Diet: regular DVT ppx: heparin Code: FULL MIPS ([employer] Incentive Payment System) Applicable CPT: 83151, 42024 CHECK ALL THAT ARE MET: [] Measure #5 (CHF): All ages. Prescribe TAHNG/ARB upon discharge for patients with left ventricular systolic dysfunction. If not, the reason is clearly documented in the medical chart [] Measure #8 (CHF): All ages. Prescribe a beta valeri upon discharge for patients with left ventricular systolic dysfunction. If not, the reason is clearly documented in the medical chart. [x] Measure #47: Advance care plan or surrogate decision maker documented in the medical record. [x] Measure #130 The provider has documented, updated, or reviewed the patients current medication list and has documented it in the patients note. [] Measure #374 (All): Send report to referring provider. [] Measure #407(Sepsis due to MSSA bacteremia): Age 18+ Patient treated with a beta-lactam antibiotic (Nafcillin, Oxacillin or Cefazolin) as definitive therapy. MEDICAL COMPLEXITYHigh complexity medical decision making (need 2/3 categories)Problem - need 4 points [x]Acute/new problem with new plan for workup (4 points, 1 max) [] Acute/new problem without additional workup (3 points, 1 max) [x] Unstable chronic problem actively being managed (2 point each, 2 max) [x] Stable chronic problem actively being managed (1 point each, 2 max) [] Self-limited/transient process (constipation, muscle ache, etc) (1 point each, 2 max) Data - need 4 points [x] Reviewed labs/imaging studies (1 points, 2 max) [x] Independent review of imaging (EKG, xrays, etc) (2 points, 2 max) [x] Discussed case with consult/other MD/RN (2 points, 2 max) High Risk - qualify if have one of the following: [x] Severe exacerbation of acute problem, acute mental status change, IV narcotics, monitoring drug levels (vancomycin, INR, tacrolimus etc) I spent 38 minutes on this patient's case, and 20 mins was dedicated to counseling and/or care coordination. Discussed with GI, ID, Pulm, cardiology, RN Time of note may not reflect time of encounter Jordy Alba D.O. Aug 16, 2020 18:13
--- NOTE | 2020-08-16 18:58 | Infectious Diseases Prog Note ---
Assessment/Plan Assessment/Plan ASSESSMENT AND PLAN: 1. covid-19 virus infection with pna, ? CAP, hypoxia, fevers - s/p dexamethasone - s/p remdesivir - s/p ceftriaxone and azithromycin - leukocytosis secondary to recent steroids - monitor hypoxia and labs - clinically improved, chest x-ray improved - stable ID standpoint 3. No known drug allergies. 4. Social history is negative. 5. Family history is noncontributory. 6. MAR is noted. 7. Case is discussed with RN. 8. Case is communicated with care primary care team. Subjective Constitutional: Reports: fatigue - less HEENT: Reports: congestion - less Respiratory: Reports: shortness of breath - less Cardiovascular: Denies: chest pain Gastrointestinal/Abdominal: Denies: nausea, vomiting, diarrhea Genitourinary: Denies: dysuria Neurologic: Denies: headache Psychiatric: Denies: depression Skin: Denies: rash Hematologic: Denies: bleeding Musculoskeletal: Denies: pain Allergies: Coded Allergies: No Known Allergies (Unverified , 08/06/20) Objective Last 24 Hour Vital Signs Date Time Temp Pulse Resp B/P (MAP) Pulse Ox O2 Delivery O2 Flow Rate FiO2 08/16/20 16:00 98.7 59 16 108/61 (77) 96 08/16/20 16:00 72 08/16/20 12:00 80 08/16/20 12:00 98.4 68 16 113/58 (76) 89 08/16/20 09:00 Nasal Cannula 3.0 08/16/20 08:00 75 08/16/20 08:00 98.2 48 16 105/50 (68) 98 08/16/20 04:00 44 08/16/20 04:00 97.1 56 17 110/66 (81) 94 08/16/20 00:00 97.5 49 18 115/55 (75) 94 08/16/20 00:00 39 08/15/20 21:00 Nasal Cannula 4.0 08/15/20 20:00 98.6 59 22 112/69 (83) 100 08/15/20 20:00 54 08/15/20 19:53 95 Venturi Mask 6.0 35 Height (Feet): 5 Height (Inches): 11.00 Weight (Pounds): 255 General Appearance: no acute distress HEENT: normocephalic, atraumatic, anicteric, mucous membranes moist Respiratory/Chest: crackles/rales, rhonchi - bilaterally Cardiovascular: normal rate, regular rhythm Abdomen: normal bowel sounds, soft, non tender, no organomegaly, non distended Genitourinary: other - no estes Extremities: no cyanosis Skin: no rash Neurologic/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 Impression: Worsening bilateral infiltrates, over 2 days Chest x-ray - 08/13/20 - Procedure: XRAY Chest 1v Indication: Shortness of breath Technique: XRAY Chest 1v Comparison: 08/08/2020 Findings: Extensive bilateral infiltrates are again seen with slightly improved aeration of the right lung compared to the prior exam. No significant pleural effusion. No pneumothorax. Heart size and osseous structures are stable. Impression: Extensive bilateral infiltrates with slight improved aeration of the right lung compared to prior exam. Laboratory Tests Test 08/16/20 04:00 08/16/20 05:54 Sodium Level 136 MMOL/L (136-145) Potassium Level 4.2 MMOL/L (3.5-5.1) Chloride Level 103 MMOL/L (98-107) Carbon Dioxide Level 28 MMOL/L (21-32) Anion Gap 5 mmol/L (5-15) Blood Urea Nitrogen 16 mg/dL (7-18) Creatinine 0.8 MG/DL (0.55-1.30) Estimat Glomerular Filtration Rate > 60 mL/min (>60) Glucose Level 91 MG/DL (74-106) Calcium Level 8.8 MG/DL (8.5-10.1) Total Bilirubin 0.7 MG/DL (0.2-1.0) Aspartate Amino Transf (AST/SGOT) 80 U/L (15-37) H Alanine Aminotransferase (ALT/SGPT) 296 U/L (12-78) H Alkaline Phosphatase 64 U/L (46-116) Total Protein 7.1 G/DL (6.4-8.2) Albumin 3.2 G/DL (3.4-5.0) L Globulin 3.9 g/dL Albumin/Globulin Ratio 0.8 (1.0-2.7) L Triglycerides Level 146 MG/DL (30-150) Cholesterol Level 114 MG/DL (< 200) LDL Cholesterol 71 mg/dL (<100) HDL Cholesterol 24 MG/DL (40-60) L Cholesterol/HDL Ratio 4.8 (3.3-4.4) H Amylase Level 155 U/L (25-115) H Lipase 950 U/L (73-393) H White Blood Count 12.7 K/UL (4.8-10.8) H Red Blood Count 4.90 M/UL (4.70-6.10) Hemoglobin 15.5 G/DL (14.2-18.0) Hematocrit 46.5 % (42.0-52.0) Mean Corpuscular Volume 95 FL (80-99) Mean Corpuscular Hemoglobin 31.5 PG (27.0-31.0) H Mean Corpuscular Hemoglobin Concent 33.2 G/DL (32.0-36.0) Red Cell Distribution Width 12.6 % (11.6-14.8) Platelet Count 338 K/UL (150-450) Mean Platelet Volume 6.2 FL (6.5-10.1) L Neutrophils (%) (Auto) 74.7 % (45.0-75.0) Lymphocytes (%) (Auto) 19.7 % (20.0-45.0) L Monocytes (%) (Auto) 4.4 % (1.0-10.0) Eosinophils (%) (Auto) 0.5 % (0.0-3.0) Basophils (%) (Auto) 0.6 % (0.0-2.0) Current Medications Medications (Trade) Dose Ordered Sig/Porter Route PRN Reason Start Time Stop Time Status Last Admin Dose Admin Acetaminophen (Tylenol) 650 mg Q4H PRN ORAL FEVER >100.5 08/08/20 11:52 09/07/20 11:51 08/10/20 08:51 Albuterol Sulfate (Proventil MDI) 2 puff Q4H PRN INH Shortness of Breath 08/14/20 06:30 11/12/20 06:29 Dextrose (Dextrose 50%) 25 ml Q30M PRN IV Hypoglycemia 08/06/20 16:45 11/04/20 16:44 Dextrose (Dextrose 50%) 50 ml Q30M PRN IV Hypoglycemia 08/06/20 16:45 11/04/20 16:44 Enoxaparin Sodium (Lovenox) 120 mg EVERY 12 HOURS SUBQ 08/13/20 21:00 11/04/20 20:59 08/16/20 08:19 Guaifenesin (Robitussin) 200 mg Q4H PRN ORAL For Cough 08/06/20 18:30 11/04/20 18:29 08/09/20 05:37 Pantoprazole (Protonix) 40 mg DAILY ORAL 08/07/20 09:00 09/06/20 08:59 08/16/20 08:18 Anam Arcos MD Aug 16, 2020 18:58
[2020-08-16 20:00] VITALS: BP 112/57
--- NOTE | 2020-08-16 20:53 | General Progress Note ---
Subjective Allergies: Coded Allergies: No Known Allergies (Unverified , 08/06/20) Subjective feels OK no abdominal complaints tolerating PO d/w RN Objective Last 24 Hour Vital Signs Date Time Temp Pulse Resp B/P (MAP) Pulse Ox O2 Delivery O2 Flow Rate FiO2 08/16/20 16:00 98.7 59 16 108/61 (77) 96 08/16/20 16:00 72 08/16/20 12:00 80 08/16/20 12:00 98.4 68 16 113/58 (76) 89 08/16/20 09:00 Nasal Cannula 3.0 08/16/20 08:00 75 08/16/20 08:00 98.2 48 16 105/50 (68) 98 08/16/20 04:00 44 08/16/20 04:00 97.1 56 17 110/66 (81) 94 08/16/20 00:00 97.5 49 18 115/55 (75) 94 08/16/20 00:00 39 08/15/20 21:00 Nasal Cannula 4.0 Intake and Output 08/15/20 08/16/20 19:00 07:00 Intake Total 500 ml Balance 500 ml Intake Oral 500 ml # Voids 2 # Bowel Movements 1 1 Laboratory Tests 08/16/20 04:00: Sodium Level 136, Potassium Level 4.2, Chloride Level 103, Carbon Dioxide Level 28, Anion Gap 5, Blood Urea Nitrogen 16, Creatinine 0.8, Estimat Glomerular Filtration Rate > 60, Glucose Level 91, Calcium Level 8.8, Total Bilirubin 0.7, Aspartate Amino Transf (AST/SGOT) 80H, Alanine Aminotransferase (ALT/SGPT) 296H, Alkaline Phosphatase 64, Total Protein 7.1, Albumin 3.2L, Globulin 3.9, Albumin/Globulin Ratio 0.8L, Triglycerides Level 146, Cholesterol Level 114, LDL Cholesterol 71, HDL Cholesterol 24L, Cholesterol/HDL Ratio 4.8H, Amylase Level 155H, Lipase 950H 08/16/20 05:54: White Blood Count 12.7H, Red Blood Count 4.90, Hemoglobin 15.5, Hematocrit 46.5, Mean Corpuscular Volume 95, Mean Corpuscular Hemoglobin 31.5H, Mean Corpuscular Hemoglobin Concent 33.2, Red Cell Distribution Width 12.6, Platelet Count 338, Mean Platelet Volume 6.2L, Neutrophils (%) (Auto) 74.7, Lymphocytes (%) (Auto) 19.7L, Monocytes (%) (Auto) 4.4, Eosinophils (%) (Auto) 0.5, Basophils (%) (Auto) 0.6 Height (Feet): 5 Height (Inches): 11.00 Weight (Pounds): 255 Objective WDWN NCAT supple CTA RR abd soft ND no edema nonfocal Assessment/Plan Assessment/Plan: Assessment - COVID infection - elevated lipase, improving - abnormal LFT - COVID and CORONA Recommendations - po as tolerated - follow labs and exam Jaimee Nunes MD Aug 16, 2020 20:53
[2020-08-17] VITALS: BP 109/68
[2020-08-17 04:00] VITALS: BP 106/63
[2020-08-17 05:56] LABS: BASOPHILS % (AUTO) 0.8 % (0.0-2.0); EOSINOPHILS % (AUTO) 0.6 % (0.0-3.0); HEMATOCRIT 43.6 % (42.0-52.0); HEMOGLOBIN 15.2 G/DL (14.2-18.0); LYMPHOCYTES % (AUTO) 28.7 % (20.0-45.0); MEAN CORPUSCULAR VOLUME 91 FL (80-99); NEUTROPHILS % (AUTO) 64.8 % (45.0-75.0); PLATELET COUNT 341 K/UL (150-450); RED CELL DISTRIBUTION WIDTH 12.8 % (11.6-14.8); WHITE BLOOD COUNT 9.5 K/UL (4.8-10.8)
[2020-08-17 06:25] LABS: ALANINE AMINOTRANSFERASE 375 U/L (12-78); ALBUMIN 3.3 G/DL (3.4-5.0); ALBUMIN/GLOBULIN RATIO 0.8 (1.0-2.7); ALKALINE PHOSPHATASE 73 U/L (46-116); ANION GAP 5 mmol/L (5-15); ASPARTATE AMINO TRANSFERASE 82 U/L (15-37); BILIRUBIN,TOTAL 0.7 MG/DL (0.2-1.0); BLOOD UREA NITROGEN 16 mg/dL (7-18); CALCIUM 9.2 MG/DL (8.5-10.1); CARBON DIOXIDE 29 MMOL/L (21-32); CHLORIDE 101 MMOL/L (98-107); CREATININE 0.9 MG/DL (0.55-1.30); PHOSPHORUS 4.7 MG/DL (2.5-4.9); POTASSIUM 4.2 MMOL/L (3.5-5.1); SODIUM 135 MMOL/L (136-145)
[2020-08-17 08:00] VITALS: BP 94/63
[2020-08-17] MEDS: Enoxaparin 120 mg inj SUBQ SCH (08:50)
[2020-08-17] MEDS ORDERED: 1/2 NS 1000ml IV ONE (09:51)
--- NOTE | 2020-08-17 11:31 | Pulmonology Progress Note ---
Subjective ROS Limited/Unobtainable: No Interval Events: None new Constitutional: Reports: fatigue - less HEENT: Repors: no symptoms Respiratory: Reports: dry cough Cardiovascular: Reports: no symptoms Gastrointestinal/Abdominal: Denies: nausea, vomiting, diarrhea Psychiatric: Denies: depression Skin: Denies: rash Musculoskeletal: Denies: pain Allergies: Coded Allergies: No Known Allergies (Unverified , 08/06/20) Objective Last 24 Hour Vital Signs Date Time Temp Pulse Resp B/P (MAP) Pulse Ox O2 Delivery O2 Flow Rate FiO2 08/17/20 09:00 Nasal Cannula 2.0 08/17/20 08:00 98.1 57 16 94/63 (73) 89 08/17/20 08:00 62 08/17/20 04:00 97.9 41 19 106/63 (77) 97 08/17/20 04:00 42 08/17/20 00:00 98.6 58 19 109/68 (82) 96 08/17/20 00:00 51 08/16/20 21:00 Nasal Cannula 2.0 08/16/20 20:00 48 08/16/20 20:00 97.6 57 19 112/57 (75) 96 08/16/20 16:00 98.7 59 16 108/61 (77) 96 08/16/20 16:00 72 08/16/20 12:00 80 08/16/20 12:00 98.4 68 16 113/58 (76) 89 Intake and Output 08/16/20 08/17/20 19:00 07:00 Intake Total 700 ml 210 ml Balance 700 ml 210 ml Intake Oral 700 ml 210 ml # Bowel Movements 1 Objective 08/17 currently saturating at 95% on 2L NC 08/16 now on 3L NC saturating at 98% 08/14 remains on 6L Venturi mask, saturating well; pt reports feeling better 08/13 remains on 6L Venturi mask 08/12 now on 6L Venturi mask 08/09 no change 08/08 pt remains to be on NRB 15L 08/07 now on NRB 15L saturating at 93-94% General Appearance: WD/WN, no acute distress HEENT: normocephalic, atraumatic Respiratory: chest wall non-tender, crackles/rales Cardiovascular: normal rate, regular rhythm Abdomen: soft, non tender Laboratory Tests 08/17/20 05:00: White Blood Count 9.5, Red Blood Count 4.80, Hemoglobin 15.2, Hematocrit 43.6, Mean Corpuscular Volume 91, Mean Corpuscular Hemoglobin 31.6H, Mean Corpuscular Hemoglobin Concent 34.8, Red Cell Distribution Width 12.8, Platelet Count 341, Mean Platelet Volume 6.4L, Neutrophils (%) (Auto) 64.8, Lymphocytes (%) (Auto) 28.7, Monocytes (%) (Auto) 5.0, Eosinophils (%) (Auto) 0.6, Basophils (%) (Auto) 0.8, Sodium Level 135L, Potassium Level 4.2, Chloride Level 101, Carbon Dioxide Level 29, Anion Gap 5, Blood Urea Nitrogen 16, Creatinine 0.9, Estimat Glomerular Filtration Rate > 60, Glucose Level 104, Calcium Level 9.2, Phosphorus Level 4.7, Magnesium Level 2.1, Total Bilirubin 0.7, Aspartate Amino Transf (AST/SGOT) 82H, Alanine Aminotransferase (ALT/SGPT) 375H, Alkaline Phosphatase 73, Total Protein 7.3, Albumin 3.3L, Globulin 4.0, Albumin/Globulin Ratio 0.8L, Lipase 925H Current Medications Medications (Trade) Dose Ordered Sig/Porter Route PRN Reason Start Time Stop Time Status Last Admin Dose Admin Acetaminophen (Tylenol) 650 mg Q4H PRN ORAL FEVER >100.5 08/08/20 11:52 09/07/20 11:51 08/10/20 08:51 Albuterol Sulfate (Proventil MDI) 2 puff Q4H PRN INH Shortness of Breath 08/14/20 06:30 11/12/20 06:29 Dextrose (Dextrose 50%) 25 ml Q30M PRN IV Hypoglycemia 08/06/20 16:45 11/04/20 16:44 Dextrose (Dextrose 50%) 50 ml Q30M PRN IV Hypoglycemia 08/06/20 16:45 11/04/20 16:44 Enoxaparin Sodium (Lovenox) 120 mg EVERY 12 HOURS SUBQ 08/13/20 21:00 11/04/20 20:59 08/17/20 08:50 Guaifenesin (Robitussin) 200 mg Q4H PRN ORAL For Cough 08/06/20 18:30 11/04/20 18:29 08/09/20 05:37 Pantoprazole (Protonix) 40 mg DAILY ORAL 08/07/20 09:00 09/06/20 08:59 08/17/20 08:50 Assessment/Plan Assessment/Plan 1. COVID-19 pneumonia with fever - now on 3L NC saturating at 95%; wean off as tolerated - s/p dexamethasone (08/07-08/16) - s/p broad-spectrum Abx - s/p remdesivir - CXR 08/08 shows worsening b/l infiltrates - CXR 08/13 slight improvement 2. Pancreatitis.; elevated LFTs - trend lipase - Abd US 08/15 shows fatty liver disease - possibly from remdesivir - GI following 3. Hypoxemia. - Cont supplemental oxygen - keep saO2 >92%; titrate down as tolerated 4. Hyperglycemia., likely secondary to steroids - monitor 5. Elevated inflammatory markers. - DVT ppx - on lovenox 6. Bradycardia; asymptomatic - 2D echo LVEF 65% - Thyroid function test : wnl - management for cardio -> no further intervention per cardio We will follow carefully. The care for this patient was discussed with my supervising physician Time spent for this case was approximately 31 minutes Austyn Calixto Aug 17, 2020 11:31
[2020-08-17 12:00] VITALS: BP 108/60
[2020-08-17 16:00] VITALS: BP 93/54
--- NOTE | 2020-08-17 17:05 | General Progress Note ---
Subjective Allergies: Coded Allergies: No Known Allergies (Unverified , 08/06/20) Subjective d/w RN no abdominal complaints tolerating PO labs noted Objective Last 24 Hour Vital Signs Date Time Temp Pulse Resp B/P (MAP) Pulse Ox O2 Delivery O2 Flow Rate FiO2 08/17/20 12:00 98.1 45 18 108/60 (76) 95 08/17/20 12:00 46 08/17/20 09:00 Nasal Cannula 2.0 08/17/20 08:00 98.1 57 16 94/63 (73) 89 08/17/20 08:00 62 08/17/20 04:00 97.9 41 19 106/63 (77) 97 08/17/20 04:00 42 08/17/20 00:00 98.6 58 19 109/68 (82) 96 08/17/20 00:00 51 08/16/20 21:00 Nasal Cannula 2.0 08/16/20 20:00 48 08/16/20 20:00 97.6 57 19 112/57 (75) 96 Intake and Output 08/16/20 08/17/20 19:00 07:00 Intake Total 700 ml 210 ml Balance 700 ml 210 ml Intake Oral 700 ml 210 ml # Bowel Movements 1 1 Laboratory Tests 08/17/20 05:00: White Blood Count 9.5, Red Blood Count 4.80, Hemoglobin 15.2, Hematocrit 43.6, Mean Corpuscular Volume 91, Mean Corpuscular Hemoglobin 31.6H, Mean Corpuscular Hemoglobin Concent 34.8, Red Cell Distribution Width 12.8, Platelet Count 341, Mean Platelet Volume 6.4L, Neutrophils (%) (Auto) 64.8, Lymphocytes (%) (Auto) 28.7, Monocytes (%) (Auto) 5.0, Eosinophils (%) (Auto) 0.6, Basophils (%) (Auto) 0.8, Sodium Level 135L, Potassium Level 4.2, Chloride Level 101, Carbon Dioxide Level 29, Anion Gap 5, Blood Urea Nitrogen 16, Creatinine 0.9, Estimat Glomerular Filtration Rate > 60, Glucose Level 104, Calcium Level 9.2, Phosphorus Level 4.7, Magnesium Level 2.1, Total Bilirubin 0.7, Aspartate Amino Transf (AST/SGOT) 82H, Alanine Aminotransferase (ALT/SGPT) 375H, Alkaline Phosphatase 73, Total Protein 7.3, Albumin 3.3L, Globulin 4.0, Albumin/Globulin Ratio 0.8L, Lipase 925H Height (Feet): 5 Height (Inches): 11.00 Weight (Pounds): 255 Objective Exam limited due to COVID isolation Assessment/Plan Assessment/Plan: Assessment - COVID infection - elevated lipase, improving - possibly due to COVID - abnormal LFT - COVID and [place]ONA Recommendations - po as tolerated - follow labs and exam - check hepatitis serologies Jaimee Nunes MD Aug 17, 2020 17:05
--- NOTE | 2020-08-17 19:22 | Cardiac Electrophysiology PN ---
Assessment/Plan Assessment/Plan 1. Sinus Bradycardia with HR down to 30. Not hypothyroid. Only 34 year old. Likely due to Covid 12 lead ECG showed HR 41 off any TRINH valeri Watch the patient on telemetry. Echocardiogram EF 65%. Hopefully avoid pacer 2. COVID pneumonia with elevated inflammatory markers, on VM 6 L. On Remdesevir, Dexa and iv Abx 3. Elevated ferritin of more than 1000, LDH of more than 500. 4. Pancreatitis. Lipase of more than 500. MARICARMEN RN Subjective Subjective On Room Air today . Alert in NAD. HR tarsha down to 30 when sleeping and HR 35 during day with 3 second pause at 5.30 am. In Covid isolation. EF 65% Objective Last 24 Hour Vital Signs Date Time Temp Pulse Resp B/P (MAP) Pulse Ox O2 Delivery O2 Flow Rate FiO2 08/17/20 16:00 57 08/17/20 16:00 98.1 51 20 93/54 (67) 95 08/17/20 12:00 98.1 45 18 108/60 (76) 95 08/17/20 12:00 46 08/17/20 09:00 Nasal Cannula 2.0 08/17/20 08:00 98.1 57 16 94/63 (73) 89 08/17/20 08:00 62 08/17/20 04:00 97.9 41 19 106/63 (77) 97 08/17/20 04:00 42 08/17/20 00:00 98.6 58 19 109/68 (82) 96 08/17/20 00:00 51 08/16/20 21:00 Nasal Cannula 2.0 08/16/20 20:00 48 08/16/20 20:00 97.6 57 19 112/57 (75) 96 Intake and Output 08/16/20 08/17/20 19:00 07:00 Intake Total 700 ml 210 ml Balance 700 ml 210 ml Intake Oral 700 ml 210 ml # Bowel Movements 1 1 Laboratory Tests Test 08/17/20 05:00 White Blood Count 9.5 K/UL (4.8-10.8) Red Blood Count 4.80 M/UL (4.70-6.10) Hemoglobin 15.2 G/DL (14.2-18.0) Hematocrit 43.6 % (42.0-52.0) Mean Corpuscular Volume 91 FL (80-99) Mean Corpuscular Hemoglobin 31.6 PG (27.0-31.0) H Mean Corpuscular Hemoglobin Concent 34.8 G/DL (32.0-36.0) Red Cell Distribution Width 12.8 % (11.6-14.8) Platelet Count 341 K/UL (150-450) Mean Platelet Volume 6.4 FL (6.5-10.1) L Neutrophils (%) (Auto) 64.8 % (45.0-75.0) Lymphocytes (%) (Auto) 28.7 % (20.0-45.0) Monocytes (%) (Auto) 5.0 % (1.0-10.0) Eosinophils (%) (Auto) 0.6 % (0.0-3.0) Basophils (%) (Auto) 0.8 % (0.0-2.0) Sodium Level 135 MMOL/L (136-145) L Potassium Level 4.2 MMOL/L (3.5-5.1) Chloride Level 101 MMOL/L (98-107) Carbon Dioxide Level 29 MMOL/L (21-32) Anion Gap 5 mmol/L (5-15) Blood Urea Nitrogen 16 mg/dL (7-18) Creatinine 0.9 MG/DL (0.55-1.30) Estimat Glomerular Filtration Rate > 60 mL/min (>60) Glucose Level 104 MG/DL (74-106) Calcium Level 9.2 MG/DL (8.5-10.1) Phosphorus Level 4.7 MG/DL (2.5-4.9) Magnesium Level 2.1 MG/DL (1.8-2.4) Total Bilirubin 0.7 MG/DL (0.2-1.0) Aspartate Amino Transf (AST/SGOT) 82 U/L (15-37) H Alanine Aminotransferase (ALT/SGPT) 375 U/L (12-78) H Alkaline Phosphatase 73 U/L (46-116) Total Protein 7.3 G/DL (6.4-8.2) Albumin 3.3 G/DL (3.4-5.0) L Globulin 4.0 g/dL Albumin/Globulin Ratio 0.8 (1.0-2.7) L Lipase 925 U/L (73-393) H Objective HEAD AND NECK: Showed no JVD. LUNGS: Coarse rhonchi. CARDIOVASCULAR: Shows regular S1 and S2 with no gallop. ABDOMEN: Soft. EXTREMITIES: No pitting edema. Jacques Hardwick MD Aug 17, 2020 19:22
[2020-08-17 20:00] VITALS: BP 105/62
--- NOTE | 2020-08-17 20:12 | General Progress Note ---
Subjective Allergies: Coded Allergies: No Known Allergies (Unverified , 08/06/20) Subjective No acute events overnight per nursing. Patient continues to be bradycardic down to low 30s. Asymptomatic. Happens when he is sleeping. No symptoms. Titrated down to room air. Cardiology aware. NO chest pain, palpitations, SOB, syncope or near syncope. Review of systems: Constitutional: Denies: chills, diaphoresis, fever, malaise, weakness, HEENT: Denies: eye pain, blurred vision, double vision, ear pain, nose pain, throat pain, Cardiovascular: Denies: chest pain, edema, lightheadedness, palpitations Respiratory: See HPI Gastrointestinal/Abdominal: Denies: abdominal pain, black stools, blood in stool, constipation, diarrhea, nausea, poor fluid intake vomiting, other Genitourinary: Denies: burning, discharge, frequency, Neurologic/Psychiatric: Denies: headache, numbness, paresthesia, new weakness, other Endocrine: Denies: excessive sweating, flushing, intolerance to cold, MSK: denies joint pains, swelling, stiffness Hematologic/Lymphatic: Denies: anemia, easy bleeding, easy bruising, Psych: no anxiety, depression, SI or HI Objective Last 24 Hour Vital Signs Date Time Temp Pulse Resp B/P (MAP) Pulse Ox O2 Delivery O2 Flow Rate FiO2 08/17/20 16:00 57 08/17/20 16:00 98.1 51 20 93/54 (67) 95 08/17/20 12:00 98.1 45 18 108/60 (76) 95 08/17/20 12:00 46 08/17/20 09:00 Nasal Cannula 2.0 08/17/20 08:00 98.1 57 16 94/63 (73) 89 08/17/20 08:00 62 08/17/20 04:00 97.9 41 19 106/63 (77) 97 08/17/20 04:00 42 08/17/20 00:00 98.6 58 19 109/68 (82) 96 08/17/20 00:00 51 08/16/20 21:00 Nasal Cannula 2.0 Intake and Output 08/16/20 08/17/20 19:00 07:00 Intake Total 700 ml 210 ml Balance 700 ml 210 ml Intake Oral 700 ml 210 ml # Bowel Movements 1 1 Laboratory Tests 08/17/20 05:00: White Blood Count 9.5, Red Blood Count 4.80, Hemoglobin 15.2, Hematocrit 43.6, Mean Corpuscular Volume 91, Mean Corpuscular Hemoglobin 31.6H, Mean Corpuscular Hemoglobin Concent 34.8, Red Cell Distribution Width 12.8, Platelet Count 341, Mean Platelet Volume 6.4L, Neutrophils (%) (Auto) 64.8, Lymphocytes (%) (Auto) 28.7, Monocytes (%) (Auto) 5.0, Eosinophils (%) (Auto) 0.6, Basophils (%) (Auto) 0.8, Sodium Level 135L, Potassium Level 4.2, Chloride Level 101, Carbon Dioxide Level 29, Anion Gap 5, Blood Urea Nitrogen 16, Creatinine 0.9, Estimat Glomerular Filtration Rate > 60, Glucose Level 104, Calcium Level 9.2, Phosphorus Level 4.7, Magnesium Level 2.1, Total Bilirubin 0.7, Aspartate Amino Transf (AST/SGOT) 82H, Alanine Aminotransferase (ALT/SGPT) 375H, Alkaline Phosphatase 73, Total Protein 7.3, Albumin 3.3L, Globulin 4.0, Albumin/Globulin Ratio 0.8L, Lipase 925H Height (Feet): 5 Height (Inches): 11.00 Weight (Pounds): 255 Objective General: WDWN male in NAD, A&O x 4. ON room air HEENT: Normocephalic cephalic atraumatic, pupils equal round reactive to light and accommodation, nares patent and no symmetrical, no tonsillar exudates, mucous membranes moist CV: Regular rate regular rhythm, no murmurs, rubs, or gallops Pulm: Lungs clear to auscultation bilaterally. No wheezes, rhonchi, or rales GI: Soft, nontender, nondistended, bowel sounds present Neuro: CN 2-12 intact bilaterally, no focal signs. Ext: No lower extremity edema bilaterally Skin: no rashes lesions or ulcers Msk: Joints symmetrical in upper extremity and lower extremity bilaterally, no joint swelling. Lymph: No lymphadenopathy in upper extremity and lower extremity Assessment/Plan Assessment/Plan: #COVID-19 Pneumonia #Acute hypoxemic respiratory failure - gradual improvement today - currently on supplemental oxygen - elevated inflammatory markers, ferritin - dexamethasone, remdesivir, per ID recs - antibiotics per ID recs - Consult pulmonology Dr. Salamanca - Consult ID Dr. Gann - Advance care planning note documented - PT mobility evaluation #pancreatitis > Asymptomatic > COVID related? - unclear etiology - GI consult: Dr. Kruger - trend lipase : downtrending - IV fluids per GI - abdominal ultrasound showing fatty liver, no gallstones - diet #Sinus pause #Bradycardia, Asymptomatic - TTE - noted - TSH WNL - Consult cardiology Dr. Hardwick - > no further interventions -Continue to monitor on telemetry. FENPPX DVTPPX: lovenox Fluids: none Diet: per GI Code status: Full Dispo: home with home health Reason for Continued Hospitalization: pancreatitis, acute resp failure Fluids: IVF Diet: regular DVT ppx: heparin Code: FULL MIPS (Merit-based Incentive Payment System) Applicable CPT: 44445, 55131 CHECK ALL THAT ARE MET: [] Measure #5 (CHF): All ages. Prescribe THANG/ARB upon discharge for patients with left ventricular systolic dysfunction. If not, the reason is clearly documented in the medical chart [] Measure #8 (CHF): All ages. Prescribe a beta valeri upon discharge for patients with left ventricular systolic dysfunction. If not, the reason is clearly documented in the medical chart. [x] Measure #47: Advance care plan or surrogate decision maker documented in the medical record. [x] Measure #130 The provider has documented, updated, or reviewed the patients current medication list and has documented it in the patients note. [] Measure #374 (All): Send report to referring provider. [] Measure #407(Sepsis due to MSSA bacteremia): Age 18+ Patient treated with a beta-lactam antibiotic (Nafcillin, Oxacillin or Cefazolin) as definitive therapy. MEDICAL COMPLEXITYHigh complexity medical decision making (need 2/3 categories)Problem - need 4 points [x]Acute/new problem with new plan for workup (4 points, 1 max) [] Acute/new problem without additional workup (3 points, 1 max) [x] Unstable chronic problem actively being managed (2 point each, 2 max) [x] Stable chronic problem actively being managed (1 point each, 2 max) [] Self-limited/transient process (constipation, muscle ache, etc) (1 point each, 2 max) Data - need 4 points [x] Reviewed labs/imaging studies (1 points, 2 max) [x] Independent review of imaging (EKG, xrays, etc) (2 points, 2 max) [x] Discussed case with consult/other MD/RN (2 points, 2 max) High Risk - qualify if have one of the following: [x] Severe exacerbation of acute problem, acute mental status change, IV narcotics, monitoring drug levels (vancomycin, INR, tacrolimus etc) I spent 36 minutes on this patient's case, and 22 mins was dedicated to counseling and/or care coordination. Discussed with GI, ID, Pulm, cardiology, RN Time of note may not reflect time of encounter Jordy Alba D.O. Aug 17, 2020 20:12
[2020-08-18] VITALS: BP 111/57
[2020-08-18 04:00] VITALS: BP 102/64
[2020-08-18 08:00] VITALS: BP 103/61
[2020-08-18] MEDS ORDERED: Enoxaparin 40mg Inj SUBQ SCH (09:00)
[2020-08-18 09:01] LABS: BASOPHILS % (AUTO) 1.2 % (0.0-2.0); EOSINOPHILS % (AUTO) 1.2 % (0.0-3.0); HEMATOCRIT 47.7 % (42.0-52.0); HEMOGLOBIN 15.8 G/DL (14.2-18.0); LYMPHOCYTES % (AUTO) 41.3 % (20.0-45.0); MEAN CORPUSCULAR VOLUME 94 FL (80-99); MONOCYTES % (AUTO) 4.1 % (1.0-10.0); NEUTROPHILS % (AUTO) 52.3 % (45.0-75.0); PLATELET COUNT 298 K/UL (150-450); RED CELL DISTRIBUTION WIDTH 13.1 % (11.6-14.8); WHITE BLOOD COUNT 6.9 K/UL (4.8-10.8)
[2020-08-18 09:17] LABS: ALANINE AMINOTRANSFERASE 400 U/L (12-78); ALBUMIN 3.2 G/DL (3.4-5.0); ALBUMIN/GLOBULIN RATIO 0.8 (1.0-2.7); ALKALINE PHOSPHATASE 75 U/L (46-116); ANION GAP 8 mmol/L (5-15); ASPARTATE AMINO TRANSFERASE 74 U/L (15-37); BILIRUBIN,TOTAL 0.8 MG/DL (0.2-1.0); BLOOD UREA NITROGEN 14 mg/dL (7-18); CALCIUM 8.9 MG/DL (8.5-10.1); CARBON DIOXIDE 27 MMOL/L (21-32); CHLORIDE 102 MMOL/L (98-107); CREATINE KINASE 38 U/L (26-308); POTASSIUM 3.7 MMOL/L (3.5-5.1); SODIUM 137 MMOL/L (136-145)
[2020-08-18 09:23] LABS: PHOSPHORUS 4.2 MG/DL (2.5-4.9)
[2020-08-18 12:00] VITALS: BP 120/58
--- NOTE | 2020-08-18 14:50 | General Progress Note ---
Subjective Allergies: Coded Allergies: No Known Allergies (Unverified , 08/06/20) Subjective Feels OK eating OK denies abd pain Objective Last 24 Hour Vital Signs Date Time Temp Pulse Resp B/P (MAP) Pulse Ox O2 Delivery O2 Flow Rate FiO2 08/18/20 12:00 70 08/18/20 12:00 98.1 68 22 120/58 (78) 95 08/18/20 09:36 Room Air 08/18/20 08:00 98.8 60 18 103/61 (75) 95 08/18/20 08:00 76 08/18/20 04:00 61 08/18/20 04:00 98.1 82 20 102/64 (77) 99 08/18/20 00:00 75 08/18/20 00:00 97.4 76 20 111/57 (75) 98 08/17/20 21:00 Nasal Cannula 1.0 08/17/20 20:00 67 08/17/20 20:00 98.6 55 20 105/62 (76) 98 08/17/20 16:00 57 08/17/20 16:00 98.1 51 20 93/54 (67) 95 Intake and Output 08/17/20 08/18/20 19:00 07:00 Intake Total 650 ml 700 ml Balance 650 ml 700 ml Intake Oral 650 ml 700 ml # Voids 3 1 # Bowel Movements 2 2 Laboratory Tests 08/18/20 07:45: White Blood Count 6.9, Red Blood Count 5.10, Hemoglobin 15.8, Hematocrit 47.7, Mean Corpuscular Volume 94, Mean Corpuscular Hemoglobin 31.1H, Mean Corpuscular Hemoglobin Concent 33.2, Red Cell Distribution Width 13.1, Platelet Count 298, Mean Platelet Volume 7.2, Neutrophils (%) (Auto) 52.3, Lymphocytes (%) (Auto) 41.3, Monocytes (%) (Auto) 4.1, Eosinophils (%) (Auto) 1.2, Basophils (%) (Auto) 1.2, Sodium Level 137, Potassium Level 3.7, Chloride Level 102, Carbon Dioxide Level 27, Anion Gap 8, Blood Urea Nitrogen 14, Creatinine 1.0, Estimat Glomerular Filtration Rate > 60, Glucose Level 124H, Calcium Level 8.9, Phosphorus Level 4.2, Magnesium Level 1.9, Total Bilirubin 0.8, Aspartate Amino Transf (AST/SGOT) 74H, Alanine Aminotransferase (ALT/SGPT) 400H, Alkaline Phosphatase 75, Total Creatine Kinase 38, Total Protein 7.1, Albumin 3.2L, Globulin 3.9, Albumin/Globulin Ratio 0.8L, Lipase 1242H, Hepatitis A IgM Antibody [Pending], Hepatitis B Surface Antigen [Pending], Hepatitis B Core IgM Antibody [Pending], Hepatitis C Antibody [Pending] Height (Feet): 5 Height (Inches): 11.00 Weight (Pounds): 255 Objective WDWN man No distress just ate lunch NCAT supple CTA RRR abd soft ND NT no edema nonfocal Assessment/Plan Assessment/Plan: Assessment - COVID infection - asymptomtic elevated lipase, improving - possibly due to COVID - abnormal LFT - COVID and [place] Recommendations - po as tolerated - follow labs and exam - check hepatitis serologies - pending - can consider MRCP at late date Jaimee Nunes MD Aug 18, 2020 14:50
--- NOTE | 2020-08-18 15:26 | Pulmonology Progress Note ---
Subjective ROS Limited/Unobtainable: No Interval Events: None new Constitutional: Reports: fatigue - less HEENT: Repors: no symptoms Respiratory: Reports: dry cough Cardiovascular: Reports: no symptoms Gastrointestinal/Abdominal: Denies: nausea, vomiting, diarrhea Psychiatric: Denies: depression Skin: Denies: rash Musculoskeletal: Denies: pain Allergies: Coded Allergies: No Known Allergies (Unverified , 08/06/20) Objective Last 24 Hour Vital Signs Date Time Temp Pulse Resp B/P (MAP) Pulse Ox O2 Delivery O2 Flow Rate FiO2 08/18/20 12:00 70 08/18/20 12:00 98.1 68 22 120/58 (78) 95 08/18/20 09:36 Room Air 08/18/20 08:00 98.8 60 18 103/61 (75) 95 08/18/20 08:00 76 08/18/20 04:00 61 08/18/20 04:00 98.1 82 20 102/64 (77) 99 08/18/20 00:00 75 08/18/20 00:00 97.4 76 20 111/57 (75) 98 08/17/20 21:00 Nasal Cannula 1.0 08/17/20 20:00 67 08/17/20 20:00 98.6 55 20 105/62 (76) 98 08/17/20 16:00 57 08/17/20 16:00 98.1 51 20 93/54 (67) 95 Intake and Output 08/17/20 08/18/20 19:00 07:00 Intake Total 650 ml 700 ml Balance 650 ml 700 ml Intake Oral 650 ml 700 ml # Voids 3 1 # Bowel Movements 2 2 Objective 08/18 on room air today; bradycardia overnight, cardio aware 08/17 currently saturating at 95% on 2L NC 08/16 now on 3L NC saturating at 98% 08/14 remains on 6L Venturi mask, saturating well; pt reports feeling better 08/13 remains on 6L Venturi mask 08/12 now on 6L Venturi mask 08/09 no change 08/08 pt remains to be on NRB 15L 08/07 now on NRB 15L saturating at 93-94% General Appearance: WD/WN, no acute distress HEENT: normocephalic, atraumatic Respiratory: chest wall non-tender, crackles/rales Cardiovascular: normal rate, regular rhythm Abdomen: soft, non tender Laboratory Tests 08/18/20 07:45: White Blood Count 6.9, Red Blood Count 5.10, Hemoglobin 15.8, Hematocrit 47.7, Mean Corpuscular Volume 94, Mean Corpuscular Hemoglobin 31.1H, Mean Corpuscular Hemoglobin Concent 33.2, Red Cell Distribution Width 13.1, Platelet Count 298, Mean Platelet Volume 7.2, Neutrophils (%) (Auto) 52.3, Lymphocytes (%) (Auto) 41.3, Monocytes (%) (Auto) 4.1, Eosinophils (%) (Auto) 1.2, Basophils (%) (Auto) 1.2, Sodium Level 137, Potassium Level 3.7, Chloride Level 102, Carbon Dioxide Level 27, Anion Gap 8, Blood Urea Nitrogen 14, Creatinine 1.0, Estimat Glomerular Filtration Rate > 60, Glucose Level 124H, Calcium Level 8.9, Phosphorus Level 4.2, Magnesium Level 1.9, Total Bilirubin 0.8, Aspartate Amino Transf (AST/SGOT) 74H, Alanine Aminotransferase (ALT/SGPT) 400H, Alkaline Phosphatase 75, Total Creatine Kinase 38, Total Protein 7.1, Albumin 3.2L, Globulin 3.9, Albumin/Globulin Ratio 0.8L, Lipase 1242H, Hepatitis A IgM Antibody [Pending], Hepatitis B Surface Antigen [Pending], Hepatitis B Core IgM Antibody [Pending], Hepatitis C Antibody [Pending] Current Medications Medications (Trade) Dose Ordered Sig/Porter Route PRN Reason Start Time Stop Time Status Last Admin Dose Admin Acetaminophen (Tylenol) 650 mg Q4H PRN ORAL FEVER >100.5 08/08/20 11:52 09/07/20 11:51 08/10/20 08:51 Albuterol Sulfate (Proventil MDI) 2 puff Q4H PRN INH Shortness of Breath 08/14/20 06:30 11/12/20 06:29 Dextrose (Dextrose 50%) 25 ml Q30M PRN IV Hypoglycemia 08/06/20 16:45 11/04/20 16:44 Dextrose (Dextrose 50%) 50 ml Q30M PRN IV Hypoglycemia 08/06/20 16:45 11/04/20 16:44 Enoxaparin Sodium (Lovenox) 40 mg DAILY SUBQ 08/18/20 09:00 11/16/20 08:59 08/18/20 09:01 Guaifenesin (Robitussin) 200 mg Q4H PRN ORAL For Cough 08/06/20 18:30 11/04/20 18:29 08/09/20 05:37 Pantoprazole (Protonix) 40 mg DAILY ORAL 08/07/20 09:00 09/06/20 08:59 08/18/20 09:00 Assessment/Plan Assessment/Plan 1. COVID-19 pneumonia with fever - remained saturating well on RA since yesterday - s/p dexamethasone (08/07-08/16) - s/p broad-spectrum Abx - s/p remdesivir - CXR 08/08 shows worsening b/l infiltrates - CXR 08/13 slight improvement 2. Pancreatitis.; elevated LFTs - trend lipase - Abd US 08/15 shows fatty liver disease - possibly from remdesivir - GI following 3. Hypoxemia.; improved 4. Hyperglycemia., likely secondary to steroids - monitor 5. Elevated inflammatory markers. - DVT ppx - on lovenox 6. Bradycardia; asymptomatic - 2D echo LVEF 65% - Thyroid function test : wnl - management for cardio -> no further intervention per cardio The care for this patient was discussed with my supervising physician Time spent for this case was approximately 31 minutes Austyn Calixto Aug 18, 2020 15:26
[2020-08-18 16:00] VITALS: BP 117/60
--- NOTE | 2020-08-18 17:15 | General Progress Note ---
Subjective Allergies: Coded Allergies: No Known Allergies (Unverified , 08/06/20) Subjective No acute events overnight per nursing. Patient continues to be bradycardic down to low 30s. Asymptomatic. Happens when he is sleeping. No symptoms. Titrated down to room air. Cardiology aware. NO chest pain, palpitations, SOB, syncope or near syncope. Review of systems: Constitutional: Denies: chills, diaphoresis, fever, malaise, weakness, HEENT: Denies: eye pain, blurred vision, double vision, ear pain, nose pain, throat pain, Cardiovascular: Denies: chest pain, edema, lightheadedness, palpitations Respiratory: See HPI Gastrointestinal/Abdominal: Denies: abdominal pain, black stools, blood in stool, constipation, diarrhea, nausea, poor fluid intake vomiting, other Genitourinary: Denies: burning, discharge, frequency, Neurologic/Psychiatric: Denies: headache, numbness, paresthesia, new weakness, other Endocrine: Denies: excessive sweating, flushing, intolerance to cold, MSK: denies joint pains, swelling, stiffness Hematologic/Lymphatic: Denies: anemia, easy bleeding, easy bruising, Psych: no anxiety, depression, SI or HI Objective Last 24 Hour Vital Signs Date Time Temp Pulse Resp B/P (MAP) Pulse Ox O2 Delivery O2 Flow Rate FiO2 08/18/20 16:00 97.5 79 22 117/60 (79) 93 08/18/20 16:00 65 08/18/20 12:00 70 08/18/20 12:00 98.1 68 22 120/58 (78) 95 08/18/20 09:36 Room Air 08/18/20 08:00 98.8 60 18 103/61 (75) 95 08/18/20 08:00 76 08/18/20 04:00 61 08/18/20 04:00 98.1 82 20 102/64 (77) 99 08/18/20 00:00 75 08/18/20 00:00 97.4 76 20 111/57 (75) 98 08/17/20 21:00 Nasal Cannula 1.0 08/17/20 20:00 67 08/17/20 20:00 98.6 55 20 105/62 (76) 98 Intake and Output 08/17/20 08/18/20 19:00 07:00 Intake Total 650 ml 700 ml Balance 650 ml 700 ml Intake Oral 650 ml 700 ml # Voids 3 1 # Bowel Movements 2 2 Laboratory Tests 08/18/20 07:45: White Blood Count 6.9, Red Blood Count 5.10, Hemoglobin 15.8, Hematocrit 47.7, Mean Corpuscular Volume 94, Mean Corpuscular Hemoglobin 31.1H, Mean Corpuscular Hemoglobin Concent 33.2, Red Cell Distribution Width 13.1, Platelet Count 298, Mean Platelet Volume 7.2, Neutrophils (%) (Auto) 52.3, Lymphocytes (%) (Auto) 41.3, Monocytes (%) (Auto) 4.1, Eosinophils (%) (Auto) 1.2, Basophils (%) (Auto) 1.2, Sodium Level 137, Potassium Level 3.7, Chloride Level 102, Carbon Dioxide Level 27, Anion Gap 8, Blood Urea Nitrogen 14, Creatinine 1.0, Estimat Glomerular Filtration Rate > 60, Glucose Level 124H, Calcium Level 8.9, Phosphorus Level 4.2, Magnesium Level 1.9, Total Bilirubin 0.8, Aspartate Amino Transf (AST/SGOT) 74H, Alanine Aminotransferase (ALT/SGPT) 400H, Alkaline Phosphatase 75, Total Creatine Kinase 38, Total Protein 7.1, Albumin 3.2L, Globulin 3.9, Albumin/Globulin Ratio 0.8L, Lipase 1242H, Hepatitis A IgM Antibody [Pending], Hepatitis B Surface Antigen [Pending], Hepatitis B Core IgM Antibody [Pending], Hepatitis C Antibody [Pending] Height (Feet): 5 Height (Inches): 11.00 Weight (Pounds): 255 Objective General: WDWN male in NAD, A&O x 4. ON room air HEENT: Normocephalic cephalic atraumatic, pupils equal round reactive to light and accommodation, nares patent and no symmetrical, no tonsillar exudates, mucous membranes moist CV: Regular rate regular rhythm, no murmurs, rubs, or gallops Pulm: Lungs clear to auscultation bilaterally. No wheezes, rhonchi, or rales GI: Soft, nontender, nondistended, bowel sounds present Neuro: CN 2-12 intact bilaterally, no focal signs. Ext: No lower extremity edema bilaterally Skin: no rashes lesions or ulcers Msk: Joints symmetrical in upper extremity and lower extremity bilaterally, no joint swelling. Lymph: No lymphadenopathy in upper extremity and lower extremity Assessment/Plan Assessment/Plan: #COVID-19 Pneumonia #Acute hypoxemic respiratory failure - gradual improvement today - currently on supplemental oxygen - elevated inflammatory markers, ferritin - dexamethasone, remdesivir, per ID recs - antibiotics per ID recs - Consult pulmonology Dr. Salamanca - Consult ID Dr. Gann - Advance care planning note documented - PT mobility evaluation #pancreatitis > Asymptomatic > COVID related? - unclear etiology - GI consult: Dr. Kruegr - trend lipase : downtrending - IV fluids per GI - abdominal ultrasound showing fatty liver, no gallstones - diet #Sinus pause #Bradycardia, Asymptomatic - TTE - noted - TSH WNL - Consult cardiology Dr. Hardwick - > no further interventions -Continue to monitor on telemetry. FENPPX DVTPPX: lovenox Fluids: none Diet: per GI Code status: Full Dispo: home with home health Reason for Continued Hospitalization: pancreatitis, acute resp failure Fluids: IVF Diet: regular DVT ppx: heparin Code: FULL MIPS (Merit-based Incentive Payment System) Applicable CPT: 28461, 50049 CHECK ALL THAT ARE MET: [] Measure #5 (CHF): All ages. Prescribe THANG/ARB upon discharge for patients with left ventricular systolic dysfunction. If not, the reason is clearly documented in the medical chart [] Measure #8 (CHF): All ages. Prescribe a beta valeri upon discharge for patients with left ventricular systolic dysfunction. If not, the reason is clearly documented in the medical chart. [x] Measure #47: Advance care plan or surrogate decision maker documented in the medical record. [x] Measure #130 The provider has documented, updated, or reviewed the patients current medication list and has documented it in the patients note. [] Measure #374 (All): Send report to referring provider. [] Measure #407(Sepsis due to MSSA bacteremia): Age 18+ Patient treated with a beta-lactam antibiotic (Nafcillin, Oxacillin or Cefazolin) as definitive therapy. MEDICAL COMPLEXITYHigh complexity medical decision making (need 2/3 categories)Problem - need 4 points [x]Acute/new problem with new plan for workup (4 points, 1 max) [] Acute/new problem without additional workup (3 points, 1 max) [x] Unstable chronic problem actively being managed (2 point each, 2 max) [x] Stable chronic problem actively being managed (1 point each, 2 max) [] Self-limited/transient process (constipation, muscle ache, etc) (1 point each, 2 max) Data - need 4 points [x] Reviewed labs/imaging studies (1 points, 2 max) [x] Independent review of imaging (EKG, xrays, etc) (2 points, 2 max) [x] Discussed case with consult/other MD/RN (2 points, 2 max) High Risk - qualify if have one of the following: [x] Severe exacerbation of acute problem, acute mental status change, IV narcotics, monitoring drug levels (vancomycin, INR, tacrolimus etc) I spent 36 minutes on this patient's case, and 22 mins was dedicated to counseling and/or care coordination. Discussed with GI, ID, Pulm, cardiology, RN Time of note may not reflect time of encounter Jordy Alba D.O. Aug 18, 2020 17:15
--- NOTE | 2020-08-18 17:26 | General Progress Note ---
Subjective Date patient seen: Aug 18, 2020 Allergies: Coded Allergies: No Known Allergies (Unverified , 08/06/20) Subjective No acute events overnight per nursing. Patient continues to be bradycardic to high 20s, low 30s while sleeping. Asymptomatic. Cardiology aware. NO chest pain, palpitations, SOB, syncope or near syncope. LIpase uptrending. No abdominal pain, nausea or vomiting. Review of systems: Constitutional: Denies: chills, diaphoresis, fever, malaise, weakness, HEENT: Denies: eye pain, blurred vision, double vision, ear pain, nose pain, throat pain, Cardiovascular: Denies: chest pain, edema, lightheadedness, palpitations Respiratory: See HPI Gastrointestinal/Abdominal: Denies: abdominal pain, black stools, blood in stool, constipation, diarrhea, nausea, poor fluid intake vomiting, other Genitourinary: Denies: burning, discharge, frequency, Neurologic/Psychiatric: Denies: headache, numbness, paresthesia, new weakness, other Endocrine: Denies: excessive sweating, flushing, intolerance to cold, MSK: denies joint pains, swelling, stiffness Hematologic/Lymphatic: Denies: anemia, easy bleeding, easy bruising, Psych: no anxiety, depression, SI or HI Objective Last 24 Hour Vital Signs Date Time Temp Pulse Resp B/P (MAP) Pulse Ox O2 Delivery O2 Flow Rate FiO2 08/18/20 16:00 97.5 79 22 117/60 (79) 93 08/18/20 16:00 65 08/18/20 12:00 70 08/18/20 12:00 98.1 68 22 120/58 (78) 95 08/18/20 09:36 Room Air 08/18/20 08:00 98.8 60 18 103/61 (75) 95 08/18/20 08:00 76 08/18/20 07:00 95 Room Air 21 08/18/20 04:00 61 08/18/20 04:00 98.1 82 20 102/64 (77) 99 08/18/20 00:00 75 08/18/20 00:00 97.4 76 20 111/57 (75) 98 08/17/20 21:00 Nasal Cannula 1.0 08/17/20 20:00 67 08/17/20 20:00 98.6 55 20 105/62 (76) 98 Intake and Output 08/17/20 08/18/20 19:00 07:00 Intake Total 650 ml 700 ml Balance 650 ml 700 ml Intake Oral 650 ml 700 ml # Voids 3 1 # Bowel Movements 2 2 Laboratory Tests 08/18/20 07:45: White Blood Count 6.9, Red Blood Count 5.10, Hemoglobin 15.8, Hematocrit 47.7, Mean Corpuscular Volume 94, Mean Corpuscular Hemoglobin 31.1H, Mean Corpuscular Hemoglobin Concent 33.2, Red Cell Distribution Width 13.1, Platelet Count 298, Mean Platelet Volume 7.2, Neutrophils (%) (Auto) 52.3, Lymphocytes (%) (Auto) 41.3, Monocytes (%) (Auto) 4.1, Eosinophils (%) (Auto) 1.2, Basophils (%) (Auto) 1.2, Sodium Level 137, Potassium Level 3.7, Chloride Level 102, Carbon Dioxide Level 27, Anion Gap 8, Blood Urea Nitrogen 14, Creatinine 1.0, Estimat Glomerular Filtration Rate > 60, Glucose Level 124H, Calcium Level 8.9, Phosphorus Level 4.2, Magnesium Level 1.9, Total Bilirubin 0.8, Aspartate Amino Transf (AST/SGOT) 74H, Alanine Aminotransferase (ALT/SGPT) 400H, Alkaline Phosphatase 75, Total Creatine Kinase 38, Total Protein 7.1, Albumin 3.2L, Globulin 3.9, Albumin/Globulin Ratio 0.8L, Lipase 1242H, Hepatitis A IgM Antibody [Pending], Hepatitis B Surface Antigen [Pending], Hepatitis B Core IgM Antibody [Pending], Hepatitis C Antibody [Pending] Height (Feet): 5 Height (Inches): 11.00 Weight (Pounds): 255 Objective General: WDWN male in NAD, A&O x 4. ON room air HEENT: Normocephalic cephalic atraumatic, pupils equal round reactive to light and accommodation, nares patent and no symmetrical, no tonsillar exudates, mucous membranes moist CV: Regular rate regular rhythm, no murmurs, rubs, or gallops Pulm: Lungs clear to auscultation bilaterally. No wheezes, rhonchi, or rales GI: Soft, nontender, nondistended, bowel sounds present Neuro: CN 2-12 intact bilaterally, no focal signs. Ext: No lower extremity edema bilaterally Skin: no rashes lesions or ulcers Msk: Joints symmetrical in upper extremity and lower extremity bilaterally, no joint swelling. Lymph: No lymphadenopathy in upper extremity and lower extremity Assessment/Plan Assessment/Plan: #COVID-19 Pneumonia #Acute hypoxemic respiratory failure - gradual improvement today - currently on supplemental oxygen - elevated inflammatory markers, ferritin - s/p dexamethasone, remdesivir, per ID recs - antibiotics per ID recs - Consult pulmonology Dr. Salamanca - Consult ID Dr. Gann - Advance care planning note documented - PT mobility evaluation #pancreatitis > Asymptomatic > COVID related? > Lipase uptrending - unclear etiology - GI consult: Dr. Kruger/Dr. Nunes - trend lipase : now uptrending - IV fluids per GI - abdominal ultrasound showing fatty liver, no gallstones - diet #Sinus pause #Bradycardia, Asymptomatic - TTE - noted - TSH WNL - Consult cardiology Dr. Hardwick - > no further interventions - > not stable for d/c yet -Continue to monitor on telemetry. FENPPX DVTPPX: lovenox Fluids: none Diet: per GI Code status: Full Dispo: home with home health Reason for Continued Hospitalization: pancreatitis, acute resp failure Fluids: IVF Diet: regular DVT ppx: lovenox Code: FULL MIPS ([employer]it-based Incentive Payment System) Applicable CPT: 76033, 45050 CHECK ALL THAT ARE MET: [] Measure #5 (CHF): All ages. Prescribe THANG/ARB upon discharge for patients with left ventricular systolic dysfunction. If not, the reason is clearly documented in the medical chart [] Measure #8 (CHF): All ages. Prescribe a beta valeri upon discharge for patients with left ventricular systolic dysfunction. If not, the reason is clearly documented in the medical chart. [x] Measure #47: Advance care plan or surrogate decision maker documented in the medical record. [x] Measure #130 The provider has documented, updated, or reviewed the p atients current medication list and has documented it in the patients note. [] Measure #374 (All): Send report to referring provider. [] Measure #407(Sepsis due to MSSA bacteremia): Age 18+ Patient treated with a beta-lactam antibiotic (Nafcillin, Oxacillin or Cefazolin) as definitive therapy. MEDICAL COMPLEXITYHigh complexity medical decision making (need 2/3 categories)Problem - need 4 points [x]Acute/new problem with new plan for workup (4 points, 1 max) [] Acute/new problem without additional workup (3 points, 1 max) [x] Unstable chronic problem actively being managed (2 point each, 2 max) [x] Stable chronic problem actively being managed (1 point each, 2 max) [] Self-limited/transient process (constipation, muscle ache, etc) (1 point each , 2 max) Data - need 4 points [x] Reviewed labs/imaging studies (1 points, 2 max) [x] Independent review of imaging (EKG, xrays, etc) (2 points, 2 max) [x] Discussed case with consult/other MD/RN (2 points, 2 max) High Risk - qualify if have one of the following: [x] Severe exacerbation of acute problem, acute mental status change, IV narcotics, monitoring drug levels (vancomycin, INR, tacrolimus etc) I spent 38 minutes on this patient's case, and 23 mins was dedicated to counseling and/or care coordination. Discussed with GI, ID, Pulm, cardiology, RN Time of note may not reflect time of encounter Jordy Alba D.O. Aug 18, 2020 17:26
--- NOTE | 2020-08-18 17:37 | Cardiac Electrophysiology PN ---
Assessment/Plan Assessment/Plan 1. Sinus Bradycardia with HR down to 30. Not hypothyroid. Only 34 year old. Likely due to Covid 12 lead ECG showed HR 41 off any TRINH valeri Watch the patient on telemetry as keep having HR 30s while awake Echocardiogram EF 65%. Hopefully avoid pacer 2. COVID pneumonia with elevated inflammatory markers, on VM 6 L. On Remdesevir, Dexa and iv Abx 3. Elevated ferritin of more than 1000, LDH of more than 500. 4. Pancreatitis. Lipase of more than 500. MARICARMEN RN Subjective Subjective On Room Air today . Alert in NAD. HR tarsha down to 35 today at 10.45 am while awake. Had 3 second pause on 08/16/20 In Covid isolation. EF 65% Objective Last 24 Hour Vital Signs Date Time Temp Pulse Resp B/P (MAP) Pulse Ox O2 Delivery O2 Flow Rate FiO2 08/18/20 16:00 97.5 79 22 117/60 (79) 93 08/18/20 16:00 65 08/18/20 12:00 70 08/18/20 12:00 98.1 68 22 120/58 (78) 95 08/18/20 09:36 Room Air 08/18/20 08:00 98.8 60 18 103/61 (75) 95 08/18/20 08:00 76 08/18/20 07:00 95 Room Air 21 08/18/20 04:00 61 08/18/20 04:00 98.1 82 20 102/64 (77) 99 08/18/20 00:00 75 08/18/20 00:00 97.4 76 20 111/57 (75) 98 08/17/20 21:00 Nasal Cannula 1.0 08/17/20 20:00 67 08/17/20 20:00 98.6 55 20 105/62 (76) 98 Intake and Output 08/17/20 08/18/20 19:00 07:00 Intake Total 650 ml 700 ml Balance 650 ml 700 ml Intake Oral 650 ml 700 ml # Voids 3 1 # Bowel Movements 2 2 Laboratory Tests Test 08/18/20 07:45 White Blood Count 6.9 K/UL (4.8-10.8) Red Blood Count 5.10 M/UL (4.70-6.10) Hemoglobin 15.8 G/DL (14.2-18.0) Hematocrit 47.7 % (42.0-52.0) Mean Corpuscular Volume 94 FL (80-99) Mean Corpuscular Hemoglobin 31.1 PG (27.0-31.0) H Mean Corpuscular Hemoglobin Concent 33.2 G/DL (32.0-36.0) Red Cell Distribution Width 13.1 % (11.6-14.8) Platelet Count 298 K/UL (150-450) Mean Platelet Volume 7.2 FL (6.5-10.1) Neutrophils (%) (Auto) 52.3 % (45.0-75.0) Lymphocytes (%) (Auto) 41.3 % (20.0-45.0) Monocytes (%) (Auto) 4.1 % (1.0-10.0) Eosinophils (%) (Auto) 1.2 % (0.0-3.0) Basophils (%) (Auto) 1.2 % (0.0-2.0) Sodium Level 137 MMOL/L (136-145) Potassium Level 3.7 MMOL/L (3.5-5.1) Chloride Level 102 MMOL/L (98-107) Carbon Dioxide Level 27 MMOL/L (21-32) Anion Gap 8 mmol/L (5-15) Blood Urea Nitrogen 14 mg/dL (7-18) Creatinine 1.0 MG/DL (0.55-1.30) Estimat Glomerular Filtration Rate > 60 mL/min (>60) Glucose Level 124 MG/DL (74-106) H Calcium Level 8.9 MG/DL (8.5-10.1) Phosphorus Level 4.2 MG/DL (2.5-4.9) Magnesium Level 1.9 MG/DL (1.8-2.4) Total Bilirubin 0.8 MG/DL (0.2-1.0) Aspartate Amino Transf (AST/SGOT) 74 U/L (15-37) H Alanine Aminotransferase (ALT/SGPT) 400 U/L (12-78) H Alkaline Phosphatase 75 U/L (46-116) Total Creatine Kinase 38 U/L (26-308) Total Protein 7.1 G/DL (6.4-8.2) Albumin 3.2 G/DL (3.4-5.0) L Globulin 3.9 g/dL Albumin/Globulin Ratio 0.8 (1.0-2.7) L Lipase 1242 U/L (73-393) H Hepatitis A IgM Antibody Pending Hepatitis B Surface Antigen Pending Hepatitis B Core IgM Antibody Pending Hepatitis C Antibody Pending Objective HEAD AND NECK: Showed no JVD. LUNGS: Coarse rhonchi. CARDIOVASCULAR: Shows regular S1 and S2 with no gallop. ABDOMEN: Soft. EXTREMITIES: No pitting edema. Jacques Hardwick MD Aug 18, 2020 17:37
[2020-08-18 20:00] VITALS: BP 125/68
--- NOTE | 2020-08-18 23:36 | Infectious Diseases Prog Note ---
Assessment/Plan Assessment/Plan ASSESSMENT AND PLAN: 1. covid-19 virus infection with pna, ? CAP, hypoxia, fevers - s/p dexamethasone - s/p remdesivir - s/p ceftriaxone and azithromycin - leukocytosis secondary to recent steroids - monitor hypoxia and labs - clinically improved, chest x-ray improved - stable ID standpoint - will sign off, please call if any questions - thank you 3. No known drug allergies. 4. Social history is negative. 5. Family history is noncontributory. 6. MAR is noted. 7. Case is discussed with RN. 8. Case is communicated with care primary care team. Subjective Constitutional: Reports: fatigue; Denies: fever HEENT: Denies: congestion Respiratory: Denies: shortness of breath Cardiovascular: Denies: chest pain Gastrointestinal/Abdominal: Denies: nausea, vomiting, diarrhea Genitourinary: Reports: other - no estes Neurologic: Denies: headache Psychiatric: Denies: depression Skin: Denies: rash Hematologic: Denies: bleeding Musculoskeletal: Denies: pain Allergies: Coded Allergies: No Known Allergies (Unverified , 08/06/20) Objective Last 24 Hour Vital Signs Date Time Temp Pulse Resp B/P (MAP) Pulse Ox O2 Delivery O2 Flow Rate FiO2 08/18/20 21:00 Room Air 08/18/20 20:00 99.0 80 20 125/68 (87) 93 08/18/20 20:00 73 08/18/20 19:00 93 Room Air 21 08/18/20 16:00 97.5 79 22 117/60 (79) 93 08/18/20 16:00 65 08/18/20 12:00 70 08/18/20 12:00 98.1 68 22 120/58 (78) 95 08/18/20 09:36 Room Air 08/18/20 08:00 98.8 60 18 103/61 (75) 95 08/18/20 08:00 76 08/18/20 07:00 95 Room Air 21 08/18/20 04:00 61 08/18/20 04:00 98.1 82 20 102/64 (77) 99 08/18/20 00:00 75 08/18/20 00:00 97.4 76 20 111/57 (75) 98 Height (Feet): 5 Height (Inches): 11.00 Weight (Pounds): 255 General Appearance: no acute distress HEENT: normocephalic, atraumatic, anicteric Respiratory/Chest: crackles/rales, rhonchi - bilaterally Cardiovascular: normal rate, regular rhythm, no gallop/murmur, no JVD Abdomen: normal bowel sounds, soft, non tender, no organomegaly, non distended Genitourinary: other - no estes Extremities: no cyanosis Skin: no rash 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 Impression: Worsening bilateral infiltrates, over 2 days Chest x-ray - 08/13/20 - Procedure: XRAY Chest 1v Indication: Shortness of breath Technique: XRAY Chest 1v Comparison: 08/08/2020 Findings: Extensive bilateral infiltrates are again seen with slightly improved aeration of the right lung compared to the prior exam. No significant pleural effusion. No pneumothorax. Heart size and osseous structures are stable. Impression: Extensive bilateral infiltrates with slight improved aeration of the right lung compared to prior exam. Microbiology Date/Time Source Procedure Growth Status 08/06/20 11:01 Blood Blood Culture - Final NO GROWTH AFTER 5 DAYS Complete 08/06/20 11:00 Nasopharynx SARS-CoV-2 RdRp Gene Assay - Final Complete Laboratory Tests Test 08/18/20 07:45 White Blood Count 6.9 K/UL (4.8-10.8) Red Blood Count 5.10 M/UL (4.70-6.10) Hemoglobin 15.8 G/DL (14.2-18.0) Hematocrit 47.7 % (42.0-52.0) Mean Corpuscular Volume 94 FL (80-99) Mean Corpuscular Hemoglobin 31.1 PG (27.0-31.0) H Mean Corpuscular Hemoglobin Concent 33.2 G/DL (32.0-36.0) Red Cell Distribution Width 13.1 % (11.6-14.8) Platelet Count 298 K/UL (150-450) Mean Platelet Volume 7.2 FL (6.5-10.1) Neutrophils (%) (Auto) 52.3 % (45.0-75.0) Lymphocytes (%) (Auto) 41.3 % (20.0-45.0) Monocytes (%) (Auto) 4.1 % (1.0-10.0) Eosinophils (%) (Auto) 1.2 % (0.0-3.0) Basophils (%) (Auto) 1.2 % (0.0-2.0) Sodium Level 137 MMOL/L (136-145) Potassium Level 3.7 MMOL/L (3.5-5.1) Chloride Level 102 MMOL/L (98-107) Carbon Dioxide Level 27 MMOL/L (21-32) Anion Gap 8 mmol/L (5-15) Blood Urea Nitrogen 14 mg/dL (7-18) Creatinine 1.0 MG/DL (0.55-1.30) Estimat Glomerular Filtration Rate > 60 mL/min (>60) Glucose Level 124 MG/DL (74-106) H Calcium Level 8.9 MG/DL (8.5-10.1) Phosphorus Level 4.2 MG/DL (2.5-4.9) Magnesium Level 1.9 MG/DL (1.8-2.4) Total Bilirubin 0.8 MG/DL (0.2-1.0) Aspartate Amino Transf (AST/SGOT) 74 U/L (15-37) H Alanine Aminotransferase (ALT/SGPT) 400 U/L (12-78) H Alkaline Phosphatase 75 U/L (46-116) Total Creatine Kinase 38 U/L (26-308) Total Protein 7.1 G/DL (6.4-8.2) Albumin 3.2 G/DL (3.4-5.0) L Globulin 3.9 g/dL Albumin/Globulin Ratio 0.8 (1.0-2.7) L Lipase 1242 U/L (73-393) H Hepatitis A IgM Antibody Pending Hepatitis B Surface Antigen Pending Hepatitis B Core IgM Antibody Pending Hepatitis C Antibody Pending Current Medications Medications (Trade) Dose Ordered Sig/Porter Route PRN Reason Start Time Stop Time Status Last Admin Dose Admin Acetaminophen (Tylenol) 650 mg Q4H PRN ORAL FEVER >100.5 08/08/20 11:52 09/07/20 11:51 08/10/20 08:51 Albuterol Sulfate (Proventil MDI) 2 puff Q4H PRN INH Shortness of Breath 08/14/20 06:30 11/12/20 06:29 Dextrose (Dextrose 50%) 25 ml Q30M PRN IV Hypoglycemia 08/06/20 16:45 11/04/20 16:44 Dextrose (Dextrose 50%) 50 ml Q30M PRN IV Hypoglycemia 08/06/20 16:45 11/04/20 16:44 Enoxaparin Sodium (Lovenox) 40 mg DAILY SUBQ 08/18/20 09:00 11/16/20 08:59 08/18/20 09:01 Guaifenesin (Robitussin) 200 mg Q4H PRN ORAL For Cough 08/06/20 18:30 11/04/20 18:29 08/09/20 05:37 Pantoprazole (Protonix) 40 mg DAILY ORAL 08/07/20 09:00 09/06/20 08:59 08/18/20 09:00 Anam Arcos MD Aug 18, 2020 23:35
[2020-08-19] VITALS: BP 121/78
[2020-08-19 04:00] VITALS: BP 123/80
[2020-08-19 06:42] LABS: BASOPHILS % (AUTO) 0.8 % (0.0-2.0); EOSINOPHILS % (AUTO) 1.8 % (0.0-3.0); HEMATOCRIT 48.8 % (42.0-52.0); HEMOGLOBIN 16.3 G/DL (14.2-18.0); LYMPHOCYTES % (AUTO) 33.4 % (20.0-45.0); MEAN CORPUSCULAR VOLUME 93 FL (80-99); MONOCYTES % (AUTO) 5.7 % (1.0-10.0); NEUTROPHILS % (AUTO) 58.3 % (45.0-75.0); PLATELET COUNT 266 K/UL (150-450); RED BLOOD COUNT 5.24 M/UL (4.70-6.10); RED CELL DISTRIBUTION WIDTH 12.9 % (11.6-14.8); WHITE BLOOD COUNT 8.3 K/UL (4.8-10.8)
[2020-08-19 07:19] LABS: ALANINE AMINOTRANSFERASE 370 U/L (12-78); ALBUMIN 3.4 G/DL (3.4-5.0); ALBUMIN/GLOBULIN RATIO 0.9 (1.0-2.7); ALKALINE PHOSPHATASE 81 U/L (46-116); ANION GAP 6 mmol/L (5-15); ASPARTATE AMINO TRANSFERASE 60 U/L (15-37); BILIRUBIN,TOTAL 0.8 MG/DL (0.2-1.0); BLOOD UREA NITROGEN 11 mg/dL (7-18); CALCIUM 9.2 MG/DL (8.5-10.1); CARBON DIOXIDE 29 MMOL/L (21-32); CHLORIDE 101 MMOL/L (98-107); CREATININE 0.9 MG/DL (0.55-1.30); PHOSPHORUS 4.2 MG/DL (2.5-4.9); POTASSIUM 4.2 MMOL/L (3.5-5.1); SODIUM 136 MMOL/L (136-145)
[2020-08-19 08:00] VITALS: BP 128/77
[2020-08-19] MEDS ORDERED: Enoxaparin 80mg Inj SUBQ SCH (09:00)
--- NOTE | 2020-08-19 10:16 | Pulmonology Progress Note ---
Subjective ROS Limited/Unobtainable: No Interval Events: None new Constitutional: Reports: fatigue - better; Denies: fever HEENT: Repors: no symptoms Respiratory: Reports: dry cough - better Cardiovascular: Reports: no symptoms Gastrointestinal/Abdominal: Denies: nausea, vomiting, diarrhea Psychiatric: Denies: depression Skin: Denies: rash Musculoskeletal: Denies: pain Allergies: Coded Allergies: No Known Allergies (Unverified , 08/06/20) Objective Last 24 Hour Vital Signs Date Time Temp Pulse Resp B/P (MAP) Pulse Ox O2 Delivery O2 Flow Rate FiO2 08/19/20 08:00 99.0 94 24 128/77 (94) 93 08/19/20 04:00 51 08/19/20 04:00 97.9 51 20 123/80 (94) 93 08/19/20 00:00 98.1 68 20 121/78 (92) 94 08/19/20 00:00 68 08/18/20 21:00 Room Air 08/18/20 20:00 99.0 80 20 125/68 (87) 93 08/18/20 20:00 73 08/18/20 19:00 93 Room Air 21 08/18/20 16:00 97.5 79 22 117/60 (79) 93 08/18/20 16:00 65 08/18/20 12:00 70 08/18/20 12:00 98.1 68 22 120/58 (78) 95 Intake and Output 08/18/20 08/19/20 19:00 07:00 Intake Total 1000 ml 800 ml Balance 1000 ml 800 ml Intake Oral 1000 ml 800 ml # Voids 3 2 # Bowel Movements 1 1 Objective 08/19 remains on room air saturating at 93% 08/18 on room air today; bradycardia overnight, cardio aware 08/17 currently saturating at 95% on 2L NC 08/16 now on 3L NC saturating at 98% 08/14 remains on 6L Venturi mask, saturating well; pt reports feeling better 08/13 remains on 6L Venturi mask 08/12 now on 6L Venturi mask 08/09 no change 08/08 pt remains to be on NRB 15L 08/07 now on NRB 15L saturating at 93-94% General Appearance: WD/WN, no acute distress HEENT: normocephalic, atraumatic Respiratory: chest wall non-tender, crackles/rales Cardiovascular: normal rate, regular rhythm Abdomen: soft, non tender Laboratory Tests 08/19/20 04:50: White Blood Count 8.3, Red Blood Count 5.24, Hemoglobin 16.3, Hematocrit 48.8, Mean Corpuscular Volume 93, Mean Corpuscular Hemoglobin 31.1H, Mean Corpuscular Hemoglobin Concent 33.4, Red Cell Distribution Width 12.9, Platelet Count 266, Mean Platelet Volume 7.1, Neutrophils (%) (Auto) 58.3, Lymphocytes (%) (Auto) 33.4, Monocytes (%) (Auto) 5.7, Eosinophils (%) (Auto) 1.8, Basophils (%) (Auto) 0.8, Sodium Level 136, Potassium Level 4.2, Chloride Level 101, Carbon Dioxide Level 29, Anion Gap 6, Blood Urea Nitrogen 11, Creatinine 0.9, Estimat Glomerular Filtration Rate > 60, Glucose Level 86, Calcium Level 9.2, Phosphorus Level 4.2, Magnesium Level 1.9, Total Bilirubin 0.8, Aspartate Amino Transf (AST/SGOT) 60H, Alanine Aminotransferase (ALT/SGPT) 370H, Alkaline Phosphatase 81, Total Protein 7.3, Albumin 3.4, Globulin 3.9, Albumin/Globulin Ratio 0.9L, Lipase 706H Current Medications Medications (Trade) Dose Ordered Sig/Porter Route PRN Reason Start Time Stop Time Status Last Admin Dose Admin Acetaminophen (Tylenol) 650 mg Q4H PRN ORAL FEVER >100.5 08/08/20 11:52 09/07/20 11:51 08/10/20 08:51 Albuterol Sulfate (Proventil MDI) 2 puff Q4H PRN INH Shortness of Breath 08/14/20 06:30 11/12/20 06:29 Dextrose (Dextrose 50%) 25 ml Q30M PRN IV Hypoglycemia 08/06/20 16:45 11/04/20 16:44 Dextrose (Dextrose 50%) 50 ml Q30M PRN IV Hypoglycemia 08/06/20 16:45 11/04/20 16:44 Enoxaparin Sodium (Lovenox) 40 mg DAILY SUBQ 08/19/20 09:00 08/19/20 12:00 08/19/20 08:46 Enoxaparin Sodium (Lovenox) 40 mg DAILY SUBQ 08/20/20 09:00 11/18/20 08:59 Guaifenesin (Robitussin) 200 mg Q4H PRN ORAL For Cough 08/06/20 18:30 11/04/20 18:29 08/09/20 05:37 Pantoprazole (Protonix) 40 mg DAILY ORAL 08/07/20 09:00 09/06/20 08:59 08/19/20 08:44 Assessment/Plan Assessment/Plan 1. COVID-19 pneumonia with fever - remains saturating well on RA - s/p dexamethasone (08/07-08/16) - s/p broad-spectrum Abx - s/p remdesivir - CXR 08/08 shows worsening b/l infiltrates - CXR 08/13 slight improvement 2. Pancreatitis.; elevated LFTs - trend lipase - Abd US 08/15 shows fatty liver disease - possibly from remdesivir - GI following 3. Hypoxemia.; improved 4. Hyperglycemia., likely secondary to steroids - monitor 5. Elevated inflammatory markers. - DVT ppx - on lovenox 6. Bradycardia; asymptomatic - 2D echo LVEF 65% - Thyroid function test : wnl - management for cardio -> no further intervention per cardio The care for this patient was discussed with my supervising physician Time spent for this case was approximately 31 minutes Austyn Calixto Aug 19, 2020 10:16
--- NOTE | 2020-08-19 10:53 | General Progress Note ---
Subjective ROS Limited/Unobtainable: Yes Allergies: Coded Allergies: No Known Allergies (Unverified , 08/06/20) Objective Last 24 Hour Vital Signs Date Time Temp Pulse Resp B/P (MAP) Pulse Ox O2 Delivery O2 Flow Rate FiO2 08/19/20 09:00 Room Air 08/19/20 08:00 99.0 94 24 128/77 (94) 93 08/19/20 08:00 68 08/19/20 04:00 51 08/19/20 04:00 97.9 51 20 123/80 (94) 93 08/19/20 00:00 98.1 68 20 121/78 (92) 94 08/19/20 00:00 68 08/18/20 21:00 Room Air 08/18/20 20:00 99.0 80 20 125/68 (87) 93 08/18/20 20:00 73 08/18/20 19:00 93 Room Air 21 08/18/20 16:00 97.5 79 22 117/60 (79) 93 08/18/20 16:00 65 08/18/20 12:00 70 08/18/20 12:00 98.1 68 22 120/58 (78) 95 Intake and Output 08/18/20 08/19/20 19:00 07:00 Intake Total 1000 ml 800 ml Balance 1000 ml 800 ml Intake Oral 1000 ml 800 ml # Voids 3 2 # Bowel Movements 1 1 Laboratory Tests 08/19/20 04:50: White Blood Count 8.3, Red Blood Count 5.24, Hemoglobin 16.3, Hematocrit 48.8, Mean Corpuscular Volume 93, Mean Corpuscular Hemoglobin 31.1H, Mean Corpuscular Hemoglobin Concent 33.4, Red Cell Distribution Width 12.9, Platelet Count 266, Mean Platelet Volume 7.1, Neutrophils (%) (Auto) 58.3, Lymphocytes (%) (Auto) 33.4, Monocytes (%) (Auto) 5.7, Eosinophils (%) (Auto) 1.8, Basophils (%) (Auto) 0.8, Sodium Level 136, Potassium Level 4.2, Chloride Level 101, Carbon Dioxide Level 29, Anion Gap 6, Blood Urea Nitrogen 11, Creatinine 0.9, Estimat Glomerular Filtration Rate > 60, Glucose Level 86, Calcium Level 9.2, Phosphorus Level 4.2, Magnesium Level 1.9, Total Bilirubin 0.8, Aspartate Amino Transf (AST/SGOT) 60H, Alanine Aminotransferase (ALT/SGPT) 370H, Alkaline Phosphatase 81, Total Protein 7.3, Albumin 3.4, Globulin 3.9, Albumin/Globulin Ratio 0.9L, Lipase 706H Height (Feet): 5 Height (Inches): 11.00 Weight (Pounds): 255 General Appearance: no apparent distress EENT: PERRL/EOMI Neck: supple Cardiovascular: normal rate Respiratory/Chest: decreased breath sounds Abdomen: normal bowel sounds, non tender, soft Extremities: non-tender Assessment/Plan Problem List: (1) Elevated lipase ICD Codes: R74.8 - Abnormal levels of other serum enzymes SNOMED: 293864817 (2) COVID-19 ICD Codes: U07.1 - COVID-19 SNOMED: 263552714 (3) Hypoxia ICD Codes: R09.02 - Hypoxemia SNOMED: 437475636 (4) Pneumonia due to COVID-19 virus ICD Codes: U07.1 - COVID-19; J12.89 - Other viral pneumonia Assessment/Plan: Assessment/Plan Assessment/Plan: Assessment - COVID infection - asymptomtic elevated lipase, improving - possibly due to COVID - abnormal LFT - COVID and [place] Recommendations - po as tolerated - follow labs and exam - check hepatitis serologies - pending - can consider MRCP at late date Karl Kruger MD Aug 19, 2020 10:53
[2020-08-19 12:00] VITALS: BP 124/80
--- NOTE | 2020-08-19 15:01 | General Progress Note ---
Subjective Date patient seen: Aug 19, 2020 Allergies: Coded Allergies: No Known Allergies (Unverified , 08/06/20) Subjective No acute events overnight per nursing. No further episodes of bradycardia overnight. However patient up to 145 sinus tachycardia on telemetry while ambulating. Asymptomatic. NO chest pain, palpitations, SOB, syncope or near syncope. LIpase downtrending, No abdominal pain, nausea or vomiting. Review of systems: Constitutional: Denies: chills, diaphoresis, fever, malaise, weakness, HEENT: Denies: eye pain, blurred vision, double vision, ear pain, nose pain, throat pain, Cardiovascular: Denies: chest pain, edema, lightheadedness, palpitations Respiratory: See HPI Gastrointestinal/Abdominal: Denies: abdominal pain, black stools, blood in stool, constipation, diarrhea, nausea, poor fluid intake vomiting, other Genitourinary: Denies: burning, discharge, frequency, Neurologic/Psychiatric: Denies: headache, numbness, paresthesia, new weakness, other Endocrine: Denies: excessive sweating, flushing, intolerance to cold, MSK: denies joint pains, swelling, stiffness Hematologic/Lymphatic: Denies: anemia, easy bleeding, easy bruising, Psych: no anxiety, depression, SI or HI Objective Last 24 Hour Vital Signs Date Time Temp Pulse Resp B/P (MAP) Pulse Ox O2 Delivery O2 Flow Rate FiO2 08/19/20 09:00 Room Air 08/19/20 08:00 99.0 94 24 128/77 (94) 93 08/19/20 08:00 68 08/19/20 04:00 51 08/19/20 04:00 97.9 51 20 123/80 (94) 93 08/19/20 00:00 98.1 68 20 121/78 (92) 94 08/19/20 00:00 68 08/18/20 21:00 Room Air 08/18/20 20:00 99.0 80 20 125/68 (87) 93 08/18/20 20:00 73 08/18/20 19:00 93 Room Air 21 08/18/20 16:00 97.5 79 22 117/60 (79) 93 08/18/20 16:00 65 Intake and Output 08/18/20 08/19/20 19:00 07:00 Intake Total 1000 ml 800 ml Balance 1000 ml 800 ml Intake Oral 1000 ml 800 ml # Voids 3 2 # Bowel Movements 1 1 Laboratory Tests 08/19/20 04:50: White Blood Count 8.3, Red Blood Count 5.24, Hemoglobin 16.3, Hematocrit 48.8, Mean Corpuscular Volume 93, Mean Corpuscular Hemoglobin 31.1H, Mean Corpuscular Hemoglobin Concent 33.4, Red Cell Distribution Width 12.9, Platelet Count 266, Mean Platelet Volume 7.1, Neutrophils (%) (Auto) 58.3, Lymphocytes (%) (Auto) 33.4, Monocytes (%) (Auto) 5.7, Eosinophils (%) (Auto) 1.8, Basophils (%) (Auto) 0.8, Sodium Level 136, Potassium Level 4.2, Chloride Level 101, Carbon Dioxide Level 29, Anion Gap 6, Blood Urea Nitrogen 11, Creatinine 0.9, Estimat Glomerular Filtration Rate > 60, Glucose Level 86, Calcium Level 9.2, Phosphorus Level 4.2, Magnesium Level 1.9, Total Bilirubin 0.8, Aspartate Amino Transf (AST/SGOT) 60H, Alanine Aminotransferase (ALT/SGPT) 370H, Alkaline Phosphatase 81, Total Protein 7.3, Albumin 3.4, Globulin 3.9, Albumin/Globulin Ratio 0.9L, Lipase 706H Height (Feet): 5 Height (Inches): 11.00 Weight (Pounds): 255 Objective General: WDWN male in NAD, A&O x 4. ON room air HEENT: Normocephalic cephalic atraumatic, pupils equal round reactive to light and accommodation, nares patent and no symmetrical, no tonsillar exudates, mucous membranes moist CV: Regular rate regular rhythm, no murmurs, rubs, or gallops Pulm: Lungs clear to auscultation bilaterally. No wheezes, rhonchi, or rales GI: Soft, nontender, nondistended, bowel sounds present Neuro: CN 2-12 intact bilaterally, no focal signs. Ext: No lower extremity edema bilaterally Skin: no rashes lesions or ulcers Msk: Joints symmetrical in upper extremity and lower extremity bilaterally, no joint swelling. Lymph: No lymphadenopathy in upper extremity and lower extremity Assessment/Plan Assessment/Plan: #COVID-19 Pneumonia #Acute hypoxemic respiratory failure - gradual improvement today - currently on supplemental oxygen - elevated inflammatory markers, ferritin - s/p dexamethasone, remdesivir, per ID recs - antibiotics per ID recs - Consult pulmonology Dr. Salamanca - Consult ID Dr. Gann - Advance care planning note documented - PT mobility evaluation #pancreatitis #transaminitis > Asymptomatic > COVID related? > Lipase uptrending - unclear etiology - GI consult: Dr. Kruger/Dr. Nunes - trend lipase : now uptrending - IV fluids per GI - abdominal ultrasound showing fatty liver, no gallstones - diet - check hepatitis serologies: pending - MRCP eventually #Sinus pause #Bradycardia, Asymptomatic #Now tachycardic to 145 with ambulation - TTE - noted - TSH WNL - Consult cardiology Dr. Hardwick - > no further interventions - > not stable for d/c yet -Continue to monitor on telemetry. FENPPX DVTPPX: lovenox Fluids: none Diet: per GI Code status: Full Dispo: home with home health Reason for Continued Hospitalization: pancreatitis, acute resp failure Fluids: IVF Diet: regular DVT ppx: lovenox Code: FULL MIPS (Merit-based Incentive Payment System) Applicable CPT: 99342, 85368 CHECK ALL THAT ARE MET: [] Measure #5 (CHF): All ages. Prescribe THANG/ARB upon discharge for patients wi th left ventricular systolic dysfunction. If not, the reason is clearly documented in the medical chart [] Measure #8 (CHF): All ages. Prescribe a beta valeri upon discharge for patients with left ventricular systolic dysfunction. If not, the reason is c learly documented in the medical chart. [x] Measure #47: Advance care plan or surrogate decision maker documented in the medical record. [x] Measure #130 The provider has documented, updated, or reviewed the patients current medication list and has documented it in the patients note. [] Measure #374 (All): Send report to referring provider. [] Measure #407(Sepsis due to MSSA bacteremia): Age 18+ Patient treated with a beta-lactam antibiotic (Nafcillin, Oxacillin or Cefazolin) as definitive therapy. MEDICAL COMPLEXITYHigh complexity medical decision making (need 2/3 categories)Problem - need 4 points [x]Acute/new problem with new plan for workup (4 points, 1 max) [] Acute/new problem without additional workup (3 points, 1 max) [x] Unstable chronic problem actively being managed (2 point each, 2 max) [x] Stable chronic problem actively being managed (1 point each, 2 max) [] Self-limited/transient process (constipation, muscle ache, etc) (1 point each, 2 max) Data - need 4 points [x] Reviewed labs/imaging studies (1 points, 2 max) [x] Independent review of imaging (EKG, xrays, etc) (2 points, 2 max) [x] Discussed case with consult/other MD/RN (2 points, 2 max) High Risk - qualify if have one of the following: [] Severe exacerbation of acute problem, acute mental status change, IV narcotics, monitoring drug levels (vancomycin, INR, tacrolimus etc) I spent 36 minutes on this patient's case, and 22 mins was dedicated to counseling and/or care coordination. Discussed with GI, ID, Pulm, cardiology, RN Time of note may not reflect time of encounter Jordy Alba D.O. Aug 19, 2020 15:01
--- NOTE | 2020-08-19 15:12 | Cardiac Electrophysiology PN ---
Assessment/Plan Assessment/Plan 1. Sinus Bradycardia with HR down to 30. Not hypothyroid. Only 34 year old. Likely due to Covid 12 lead ECG showed HR 41 off any TRINH valeri HR much better today. Echocardiogram EF 65%. 2. COVID pneumonia with elevated inflammatory markers, on VM 6 L. On Remdesevir, Dexa and iv Abx 3. Elevated ferritin of more than 1000, LDH of more than 500. 4. Pancreatitis. Lipase of more than 500. MARICARMEN RN Subjective Subjective On Room Air. Alert in NAD. HR tarsha down to 35 yesterdaty while awake. Had 3 second pause on 08/16/20 In Covid isolation. EF 65% Today HR much better and actually up to 140s with activity AST/ALT/Lipase still high Objective Last 24 Hour Vital Signs Date Time Temp Pulse Resp B/P (MAP) Pulse Ox O2 Delivery O2 Flow Rate FiO2 08/19/20 09:00 Room Air 08/19/20 08:00 99.0 94 24 128/77 (94) 93 08/19/20 08:00 68 08/19/20 04:00 51 08/19/20 04:00 97.9 51 20 123/80 (94) 93 08/19/20 00:00 98.1 68 20 121/78 (92) 94 08/19/20 00:00 68 08/18/20 21:00 Room Air 08/18/20 20:00 99.0 80 20 125/68 (87) 93 08/18/20 20:00 73 08/18/20 19:00 93 Room Air 21 08/18/20 16:00 97.5 79 22 117/60 (79) 93 08/18/20 16:00 65 Intake and Output 08/18/20 08/19/20 19:00 07:00 Intake Total 1000 ml 800 ml Balance 1000 ml 800 ml Intake Oral 1000 ml 800 ml # Voids 3 2 # Bowel Movements 1 1 Laboratory Tests Test 08/19/20 04:50 White Blood Count 8.3 K/UL (4.8-10.8) Red Blood Count 5.24 M/UL (4.70-6.10) Hemoglobin 16.3 G/DL (14.2-18.0) Hematocrit 48.8 % (42.0-52.0) Mean Corpuscular Volume 93 FL (80-99) Mean Corpuscular Hemoglobin 31.1 PG (27.0-31.0) H Mean Corpuscular Hemoglobin Concent 33.4 G/DL (32.0-36.0) Red Cell Distribution Width 12.9 % (11.6-14.8) Platelet Count 266 K/UL (150-450) Mean Platelet Volume 7.1 FL (6.5-10.1) Neutrophils (%) (Auto) 58.3 % (45.0-75.0) Lymphocytes (%) (Auto) 33.4 % (20.0-45.0) Monocytes (%) (Auto) 5.7 % (1.0-10.0) Eosinophils (%) (Auto) 1.8 % (0.0-3.0) Basophils (%) (Auto) 0.8 % (0.0-2.0) Sodium Level 136 MMOL/L (136-145) Potassium Level 4.2 MMOL/L (3.5-5.1) Chloride Level 101 MMOL/L (98-107) Carbon Dioxide Level 29 MMOL/L (21-32) Anion Gap 6 mmol/L (5-15) Blood Urea Nitrogen 11 mg/dL (7-18) Creatinine 0.9 MG/DL (0.55-1.30) Estimat Glomerular Filtration Rate > 60 mL/min (>60) Glucose Level 86 MG/DL (74-106) Calcium Level 9.2 MG/DL (8.5-10.1) Phosphorus Level 4.2 MG/DL (2.5-4.9) Magnesium Level 1.9 MG/DL (1.8-2.4) Total Bilirubin 0.8 MG/DL (0.2-1.0) Aspartate Amino Transf (AST/SGOT) 60 U/L (15-37) H Alanine Aminotransferase (ALT/SGPT) 370 U/L (12-78) H Alkaline Phosphatase 81 U/L (46-116) Total Protein 7.3 G/DL (6.4-8.2) Albumin 3.4 G/DL (3.4-5.0) Globulin 3.9 g/dL Albumin/Globulin Ratio 0.9 (1.0-2.7) L Lipase 706 U/L (73-393) H Objective HEAD AND NECK: Showed no JVD. LUNGS: Coarse rhonchi. CARDIOVASCULAR: Shows regular S1 and S2 with no gallop. ABDOMEN: Soft. EXTREMITIES: No pitting edema. Jacques Hardwick MD Aug 19, 2020 15:12
[2020-08-19 16:00] VITALS: BP 126/82
[2020-08-19 20:00] VITALS: BP 130/82
[2020-08-20] VITALS: BP 117/75
[2020-08-20 04:00] VITALS: BP 120/73
[2020-08-20 08:00] VITALS: BP 115/67
[2020-08-20 08:01] LABS: BASOPHILS % (AUTO) 0.8 % (0.0-2.0); EOSINOPHILS % (AUTO) 1.6 % (0.0-3.0); HEMATOCRIT 47.2 % (42.0-52.0); HEMOGLOBIN 16.2 G/DL (14.2-18.0); LYMPHOCYTES % (AUTO) 31.5 % (20.0-45.0); MEAN CORPUSCULAR VOLUME 91 FL (80-99); MONOCYTES % (AUTO) 6.4 % (1.0-10.0); NEUTROPHILS % (AUTO) 59.7 % (45.0-75.0); PLATELET COUNT 244 K/UL (150-450); RED BLOOD COUNT 5.17 M/UL (4.70-6.10); RED CELL DISTRIBUTION WIDTH 13.3 % (11.6-14.8); WHITE BLOOD COUNT 8.6 K/UL (4.8-10.8)
[2020-08-20 08:15] LABS: ALANINE AMINOTRANSFERASE 303 U/L (12-78); ALBUMIN 3.3 G/DL (3.4-5.0); ALBUMIN/GLOBULIN RATIO 0.9 (1.0-2.7); ALKALINE PHOSPHATASE 83 U/L (46-116); AMYLASE 101 U/L (25-115); ANION GAP 5 mmol/L (5-15); ASPARTATE AMINO TRANSFERASE 46 U/L (15-37); BILIRUBIN,TOTAL 0.9 MG/DL (0.2-1.0); BLOOD UREA NITROGEN 12 mg/dL (7-18); CARBON DIOXIDE 28 MMOL/L (21-32); CHLORIDE 103 MMOL/L (98-107); CREATININE 0.9 MG/DL (0.55-1.30); POTASSIUM 3.9 MMOL/L (3.5-5.1); SODIUM 136 MMOL/L (136-145)
[2020-08-20 08:29] LABS: PHOSPHORUS 4.2 MG/DL (2.5-4.9)
--- NOTE | 2020-08-20 08:34 | General Progress Note ---
Subjective ROS Limited/Unobtainable: Yes Allergies: Coded Allergies: No Known Allergies (Unverified , 08/06/20) Objective Last 24 Hour Vital Signs Date Time Temp Pulse Resp B/P (MAP) Pulse Ox O2 Delivery O2 Flow Rate FiO2 08/20/20 04:00 71 08/20/20 04:00 97.8 70 18 120/73 (89) 99 08/20/20 00:00 97.9 63 18 117/75 (89) 98 08/20/20 00:00 82 08/19/20 21:00 Room Air 08/19/20 20:00 97.7 60 18 130/82 (98) 99 08/19/20 20:00 96 08/19/20 19:16 100 Room Air 21 08/19/20 16:00 98.6 102 22 126/82 (97) 97 08/19/20 16:00 71 08/19/20 12:00 82 08/19/20 12:00 97.9 104 22 124/80 (95) 95 08/19/20 09:00 Room Air Intake and Output 08/19/20 08/20/20 19:00 07:00 Intake Total 1200 ml 800 ml Balance 1200 ml 800 ml Intake Oral 1200 ml 800 ml # Voids 3 3 # Bowel Movements 2 1 Laboratory Tests 08/20/20 06:02: White Blood Count 8.6, Red Blood Count 5.17, Hemoglobin 16.2, Hematocrit 47.2, Mean Corpuscular Volume 91, Mean Corpuscular Hemoglobin 31.4H, Mean Corpuscular Hemoglobin Concent 34.4, Red Cell Distribution Width 13.3, Platelet Count 244, Mean Platelet Volume 7.1, Neutrophils (%) (Auto) 59.7, Lymphocytes (%) (Auto) 31.5, Monocytes (%) (Auto) 6.4, Eosinophils (%) (Auto) 1.6, Basophils (%) (Auto) 0.8, Sodium Level 136, Potassium Level 3.9, Chloride Level 103, Carbon Dioxide Level 28, Anion Gap 5, Blood Urea Nitrogen 12, Creatinine 0.9, Estimat Glomerular Filtration Rate > 60, Glucose Level 96, Calcium Level 9.0, Phosphorus Level [Pending], Magnesium Level [Pending], Total Bilirubin 0.9, Aspartate Amino Transf (AST/SGOT) 46H, Alanine Aminotransferase (ALT/SGPT) 303H, Alkaline Phosphatase 83, Total Protein 7.1, Albumin 3.3L, Globulin 3.8, Albumin/Globulin Ratio 0.9L, Amylase Level 101, Lipase 733H Height (Feet): 5 Height (Inches): 11.00 Weight (Pounds): 255 General Appearance: no apparent distress EENT: normal ENT inspection Neck: supple Cardiovascular: normal rate Respiratory/Chest: decreased breath sounds Abdomen: normal bowel sounds, non tender, soft Extremities: non-tender Assessment/Plan Problem List: (1) Elevated lipase ICD Codes: R74.8 - Abnormal levels of other serum enzymes SNOMED: 282695097 (2) COVID-19 ICD Codes: U07.1 - COVID-19 SNOMED: 213837223 (3) Hypoxia ICD Codes: R09.02 - Hypoxemia SNOMED: 567837395 (4) Pneumonia due to COVID-19 virus ICD Codes: U07.1 - COVID-19; J12.89 - Other viral pneumonia Assessment/Plan: Assessment/Plan Assessment/Plan: Assessment - COVID infection - asymptomtic elevated lipase, improving - possibly due to COVID - abnormal LFT - COVID and CORONA Recommendations - po as tolerated - follow labs and exam - check hepatitis serologies - neg - can consider MRCP at late date Karl Kruger MD Aug 20, 2020 08:34
[2020-08-20] MEDS ORDERED: Enoxaparin 40mg Inj SUBQ SCH (09:00)
--- NOTE | 2020-08-20 10:14 | Pulmonology Progress Note ---
Subjective ROS Limited/Unobtainable: Yes Interval Events: None new Constitutional: Reports: fatigue - better; Denies: fever HEENT: Repors: no symptoms Respiratory: Reports: dry cough - better Cardiovascular: Reports: no symptoms Gastrointestinal/Abdominal: Denies: nausea, vomiting, diarrhea Psychiatric: Denies: depression Skin: Denies: rash Musculoskeletal: Denies: pain Allergies: Coded Allergies: No Known Allergies (Unverified , 08/06/20) Objective Last 24 Hour Vital Signs Date Time Temp Pulse Resp B/P (MAP) Pulse Ox O2 Delivery O2 Flow Rate FiO2 08/20/20 04:00 71 08/20/20 04:00 97.8 70 18 120/73 (89) 99 08/20/20 00:00 97.9 63 18 117/75 (89) 98 08/20/20 00:00 82 08/19/20 21:00 Room Air 08/19/20 20:00 97.7 60 18 130/82 (98) 99 08/19/20 20:00 96 08/19/20 19:16 100 Room Air 21 08/19/20 16:00 98.6 102 22 126/82 (97) 97 08/19/20 16:00 71 08/19/20 12:00 82 08/19/20 12:00 97.9 104 22 124/80 (95) 95 Intake and Output 08/19/20 08/20/20 19:00 07:00 Intake Total 1200 ml 800 ml Balance 1200 ml 800 ml Intake Oral 1200 ml 800 ml # Voids 3 3 # Bowel Movements 2 1 Objective 08/20 saturating at 96% on RA 08/19 remains on room air saturating at 93% 08/18 on room air today; bradycardia overnight, cardio aware 08/17 currently saturating at 95% on 2L NC 08/16 now on 3L NC saturating at 98% 08/14 remains on 6L Venturi mask, saturating well; pt reports feeling better 08/13 remains on 6L Venturi mask 08/12 now on 6L Venturi mask 08/09 no change 08/08 pt remains to be on NRB 15L 08/07 now on NRB 15L saturating at 93-94% General Appearance: WD/WN, no acute distress HEENT: normocephalic, atraumatic Respiratory: chest wall non-tender, crackles/rales Cardiovascular: normal rate, regular rhythm Abdomen: soft, non tender Laboratory Tests 08/20/20 06:02: White Blood Count 8.6, Red Blood Count 5.17, Hemoglobin 16.2, Hematocrit 47.2, Mean Corpuscular Volume 91, Mean Corpuscular Hemoglobin 31.4H, Mean Corpuscular Hemoglobin Concent 34.4, Red Cell Distribution Width 13.3, Platelet Count 244, Mean Platelet Volume 7.1, Neutrophils (%) (Auto) 59.7, Lymphocytes (%) (Auto) 31.5, Monocytes (%) (Auto) 6.4, Eosinophils (%) (Auto) 1.6, Basophils (%) (Auto) 0.8, Sodium Level 136, Potassium Level 3.9, Chloride Level 103, Carbon Dioxide Level 28, Anion Gap 5, Blood Urea Nitrogen 12, Creatinine 0.9, Estimat Glomerular Filtration Rate > 60, Glucose Level 96, Calcium Level 9.0, Phosphorus Level 4.2, Magnesium Level 2.0, Total Bilirubin 0.9, Aspartate Amino Transf (AST/SGOT) 46H, Alanine Aminotransferase (ALT/SGPT) 303H, Alkaline Phosphatase 83, Total Protein 7.1, Albumin 3.3L, Globulin 3.8, Albumin/Globulin Ratio 0.9L, Amylase Level 101, Lipase 733H Current Medications Medications (Trade) Dose Ordered Sig/Porter Route PRN Reason Start Time Stop Time Status Last Admin Dose Admin Acetaminophen (Tylenol) 650 mg Q4H PRN ORAL FEVER >100.5 08/08/20 11:52 09/07/20 11:51 08/10/20 08:51 Albuterol Sulfate (Proventil MDI) 2 puff Q4H PRN INH Shortness of Breath 08/14/20 06:30 11/12/20 06:29 Dextrose (Dextrose 50%) 25 ml Q30M PRN IV Hypoglycemia 08/06/20 16:45 11/04/20 16:44 Dextrose (Dextrose 50%) 50 ml Q30M PRN IV Hypoglycemia 08/06/20 16:45 11/04/20 16:44 Enoxaparin Sodium (Lovenox) 40 mg DAILY SUBQ 08/20/20 09:00 11/18/20 08:59 08/20/20 09:09 Guaifenesin (Robitussin) 200 mg Q4H PRN ORAL For Cough 08/06/20 18:30 11/04/20 18:29 08/09/20 05:37 Pantoprazole (Protonix) 40 mg DAILY ORAL 08/07/20 09:00 09/06/20 08:59 08/20/20 09:09 Assessment/Plan Assessment/Plan 1. COVID-19 pneumonia with fever - remains saturating well on RA - s/p dexamethasone (08/07-08/16) - s/p broad-spectrum Abx - s/p remdesivir - CXR 08/08 shows worsening b/l infiltrates - CXR 08/13 slight improvement 2. Pancreatitis.; elevated LFTs - trend lipase - Abd US 08/15 shows fatty liver disease - possibly from remdesivir - GI following - hep serology neg - the plan for MRCP at a later date per GI noted 3. Hypoxemia.; improved 4. Hyperglycemia., likely secondary to steroids - monitor 5. Elevated inflammatory markers. - DVT ppx - on lovenox 6. Bradycardia; asymptomatic - 2D echo LVEF 65% - Thyroid function test : wnl - management for cardio -> no further intervention per cardio Medically stable fro discharge from pulmonary stand point The care for this patient was discussed with my supervising physician Time spent for this case was approximately 31 minutes Austyn Calixto Aug 20, 2020 10:14
--- NOTE | 2020-08-20 10:22 | Cardiac Electrophysiology PN ---
Assessment/Plan Assessment/Plan 1. Sinus Bradycardia with HR down to 30. Not hypothyroid. Only 34 year old. Likely due to Covid 12 lead ECG showed HR 41 off any TRINH valeri HR much better today. Echocardiogram EF 65%. 2. COVID pneumonia with elevated inflammatory markers, on VM 6 L. On Remdesevir, Dexa and iv Abx 3. Elevated ferritin of more than 1000, LDH of more than 500. 4. Pancreatitis. Lipase still more than 700. MARICARMEN RN Subjective Subjective On Room Air. Alert in NAD. Had 3 second pause on 08/16/20 In Covid isolation. EF 65% HR much better in 50-60s and actually up to 140s with activity yesterday AST/ALT improving but Lipase still high Objective Last 24 Hour Vital Signs Date Time Temp Pulse Resp B/P (MAP) Pulse Ox O2 Delivery O2 Flow Rate FiO2 08/20/20 04:00 71 08/20/20 04:00 97.8 70 18 120/73 (89) 99 08/20/20 00:00 97.9 63 18 117/75 (89) 98 08/20/20 00:00 82 08/19/20 21:00 Room Air 08/19/20 20:00 97.7 60 18 130/82 (98) 99 08/19/20 20:00 96 08/19/20 19:16 100 Room Air 21 08/19/20 16:00 98.6 102 22 126/82 (97) 97 08/19/20 16:00 71 08/19/20 12:00 82 08/19/20 12:00 97.9 104 22 124/80 (95) 95 Intake and Output 08/19/20 08/20/20 19:00 07:00 Intake Total 1200 ml 800 ml Balance 1200 ml 800 ml Intake Oral 1200 ml 800 ml # Voids 3 3 # Bowel Movements 2 1 Laboratory Tests Test 08/20/20 06:02 White Blood Count 8.6 K/UL (4.8-10.8) Red Blood Count 5.17 M/UL (4.70-6.10) Hemoglobin 16.2 G/DL (14.2-18.0) Hematocrit 47.2 % (42.0-52.0) Mean Corpuscular Volume 91 FL (80-99) Mean Corpuscular Hemoglobin 31.4 PG (27.0-31.0) H Mean Corpuscular Hemoglobin Concent 34.4 G/DL (32.0-36.0) Red Cell Distribution Width 13.3 % (11.6-14.8) Platelet Count 244 K/UL (150-450) Mean Platelet Volume 7.1 FL (6.5-10.1) Neutrophils (%) (Auto) 59.7 % (45.0-75.0) Lymphocytes (%) (Auto) 31.5 % (20.0-45.0) Monocytes (%) (Auto) 6.4 % (1.0-10.0) Eosinophils (%) (Auto) 1.6 % (0.0-3.0) Basophils (%) (Auto) 0.8 % (0.0-2.0) Sodium Level 136 MMOL/L (136-145) Potassium Level 3.9 MMOL/L (3.5-5.1) Chloride Level 103 MMOL/L (98-107) Carbon Dioxide Level 28 MMOL/L (21-32) Anion Gap 5 mmol/L (5-15) Blood Urea Nitrogen 12 mg/dL (7-18) Creatinine 0.9 MG/DL (0.55-1.30) Estimat Glomerular Filtration Rate > 60 mL/min (>60) Glucose Level 96 MG/DL (74-106) Calcium Level 9.0 MG/DL (8.5-10.1) Phosphorus Level 4.2 MG/DL (2.5-4.9) Magnesium Level 2.0 MG/DL (1.8-2.4) Total Bilirubin 0.9 MG/DL (0.2-1.0) Aspartate Amino Transf (AST/SGOT) 46 U/L (15-37) H Alanine Aminotransferase (ALT/SGPT) 303 U/L (12-78) H Alkaline Phosphatase 83 U/L (46-116) Total Protein 7.1 G/DL (6.4-8.2) Albumin 3.3 G/DL (3.4-5.0) L Globulin 3.8 g/dL Albumin/Globulin Ratio 0.9 (1.0-2.7) L Amylase Level 101 U/L (25-115) Lipase 733 U/L (73-393) H Objective HEAD AND NECK: Showed no JVD. LUNGS: Coarse rhonchi. CARDIOVASCULAR: Shows regular S1 and S2 with no gallop. ABDOMEN: Soft. EXTREMITIES: No pitting edema. Jacques Hardwick MD Aug 20, 2020 10:21
--- NOTE | 2020-08-20 11:17 | Discharge Instructions ---
Discharge Instructions Discharge Instructions Follow up with: primary care physician and gastroenterology specialist Call MD/Return to Hospital if: symptoms worsen or fail to improve Diet: low fat Resume Normal Activity?: Yes Follow Up Orders Please establish care with a primary care physician as soon as possible. Have your primary care physician check your blood work including liver enzymes since your levels were elevated. You may likely need a referral to a gastroenterology specialist as well. For Congestive Heart Failure Reminder Report to your physician any weight gain of 5 pounds or more in one week. Obinna Mar M.D. Aug 20, 2020 11:17
[2020-08-20 12:00] VITALS: BP 118/72
--- NOTE | 2020-08-20 12:08 | Discharge Summary ---
Discharge Summary Hospital Course Date of Admission Aug 06, 2020 at 12:16 Date of Discharge 08/20/2019 Admitting Diagnosis RESP FAILURE Reason for Hospitalization: COVID pneumonia HPI Kevin Morrison is a 34 year old male who was admitted on Aug 06, 2020 at 12:16 for Respiratory Failure Kevin Morrison is a 34 yo previously healthy male who presents with 8 days of progressive SOB, cough, fevers, chills, decreased appetite. He is COVID-19 positive. He denies known sick contacts in his immediate family or outside the home. He recently traveled to [place] early June but was feeling well until last week. Also reports altered sensation of taste but denies anosmia, diarrhea, calf pain, blood clots. Consultations Cardiology, Pulmonology, ID Hospital Course Patient admitted and treated for COVID-19 pneumonia with decadron and remdesivir and antibiotics. Patient initially had high oxygen requirements but eventually was able to wean off onto room air., Also noted to have bradycardia that resolved. I spent 32 minutes on this patient's discharge including discussion with immigration case manager, cardiology and pulmonology and ID consultants and bedside RN. Time of note may not reflect time of encounter Discharge Medications Medication Profile: No Active Prescriptions or Reported Meds Discharge Condition Upon Discharge: improving Discharge Vital Signs Last Vital Signs Date Time Temp Pulse Resp B/P (MAP) Pulse Ox O2 Delivery O2 Flow Rate FiO2 08/20/20 09:00 Room Air 08/20/20 08:00 97.9 51 20 115/67 (83) 93 08/19/20 19:16 21 08/17/20 21:00 1.0 Exam on day of discharge General: WDWN male in NAD, A&O x 4. ON room air HEENT: Normocephalic cephalic atraumatic, pupils equal round reactive to light and accommodation, nares patent and no symmetrical, no tonsillar exudates, mucous membranes moist CV: Regular rate regular rhythm, no murmurs, rubs, or gallops Pulm: Lungs clear to auscultation bilaterally. No wheezes, rhonchi, or rales GI: Soft, nontender, nondistended, bowel sounds present Neuro: CN 2-12 intact bilaterally, no focal signs. Ext: No lower extremity edema bilaterally Skin: no rashes lesions or ulcers Msk: Joints symmetrical in upper extremity and lower extremity bilaterally, no joint swelling. Lymph: No lymphadenopathy in upper extremity and lower extremity Discharge Disposition Patient was discharged to home Discharge Diagnoses: (1) COVID-19 (2) Hypoxia (3) Pneumonia due to COVID-19 virus Discharge Instructions Discharge Instructions Follow up with: primary care physician and gastroenterology specialist Call MD/Return to Hospital if: symptoms worsen or fail to improve Obinna Mar M.D. Aug 20, 2020 12:08
== END 2020-08-20 13:10 | disposition home or self-care (01) | DRG 137 ==
LOC: EDBD 10:38 → EMR 12:05 → 2E 12:16 → EDBEDREQ 15:38
DX: U07.1 COVID-19 (principal); J96.01 Acute respiratory failure with hypoxia; J12.82 Pneumonia due to coronavirus disease 2019; K85.90 Acute pancreatitis without necrosis or infection, unspecified; Z87.891 Personal history of nicotine dependence; F10.11 Alcohol abuse, in remission; R73.9 Hyperglycemia, unspecified; I49.5 Sick sinus syndrome; K76.0 Fatty (change of) liver, not elsewhere classified
CPT/HCPCS: 36415; 71045; 76700; 80048; 80053; 80061; 80162; 82150; 82248; 82550; 82553; 82728; 82803; 83605; 83615; 83690; 83735; 83880; 84100; 84439; 84443; 84484; 85025; 85379; 85384; 85610; 85730; 86140; 86705; 86709; 86803; 87040; 87340; 93005; 93306; 94640; 96361; 96365; 96375; 99291; J3490; J7030; U0002